=== PATIENT | female | born 1940 | race Caucasian/White ===

== ENCOUNTER → 2021-08-23 14:45 | Outpatient (BNVA) | payer MEDICARE, MEDICAID, SELFPAY | PROVIDERS: Family Provider Internal Medicine; PCP Internal Medicine; Visit Provider Internal Medicine Cardiovascular Disease | DX: I50.22 Chronic systolic (congestive) heart failure (principal) | CPT/HCPCS: 80048; 85025 ==

== ENCOUNTER → 2021-09-01 15:00 | Outpatient (BNVA) | payer MEDICARE, MEDICAID, SELFPAY | PROVIDERS: Family Provider Internal Medicine; PCP Internal Medicine; Visit Provider Nurse Practitioner Family | DX: I50.22 Chronic systolic (congestive) heart failure (principal); I42.9 Cardiomyopathy, unspecified; E78.5 Hyperlipidemia, unspecified; I25.10 Atherosclerotic heart disease of native coronary artery without angina pectoris | CPT/HCPCS: 80048; 83880 ==

== ENCOUNTER 2021-12-09 13:10 | Inpatient (IN) | payer MEDICARE, MEDICAID, SELFPAY ==
[2021-12-09] VITALS (14 sets, daily range): BP systolic 87–140; BP diastolic 46–78; PULSE 69–108; RESP 13–27; TEMP 36.1–36.6; O2SAT 91–95
--- NOTE | 2021-12-09 13:21 | XR_ITS ---
WS: [id number] Chest 2 views, 12/09/2021 Clinical Data: eval for pneumonia Comparison: Portable chest, 02/15/2019. Findings: No nodules, masses or effusions are seen. There are scattered pulmonary opacities in the lo wer lobes which have improved compared to 2 years ago. The heart is enlarged. The pulmonary vasculari ty is not increased. No pneumonia or pneumothorax is seen. The aortic arch and descending thoracic ao rta show tortuosity. There is a hiatal hernia behind the heart. There is a permanent pacemaker with t he generator in the left axilla. There is marked dextroscoliosis and kyphosis. There is osteoporosis with multiple midthoracic compression fractures. Vertebroplasty cement is noted in the T10, T12 and L 1 vertebral bodies. Monitor leads are on the chest wall. XR/XR chest 2V* [id number] Impression: 1. Bilateral bibasilar pulmonary interstitial opacities which probably represen t chronic fibrotic change or atelectasis. 2. Atherosclerosis and cardiomegaly. 3. Kyphosis, dextroscoliosis, osteoporosis and multiple thoracic compression fr actures.
--- NOTE | 2021-12-09 13:21 | ECG_ITS ---
[facility] Test Date: 2021-12-09 Pat Name: Kizzy Salgado Department: Room: Gender: Female Medical Sales Consultant: : 1940 Requested By: Cassie Chen Order Number: [id number] Kayla MD: Peg Silva M.D. Measurements Intervals [place] Rate: 88 P: 28 RI: 148 QRS: 35 QRSD: 142 T: -34 QT: 373 QTc: 454 Interpretive Statements POSSIBLE ATRIAL FLUTTER POSSIBLE LEFT ATRIAL ENLARGEMENT RIGHT BUNDLE BRANCH BLOCK POSSIBLE SEPTAL MYOCARDIAL INFARCTION , OF INDETERMINATE AGE MODERATE T-WAVE ABNORMALITY, CONSIDER LATERAL ISCHEMIA MODERATE T-WAVE ABNORMALITY, CONSIDER INFERIOR ISCHEMIA Compared to ECG 02/15/2019 20:31:39 Myocardial infarct finding now present T-wave abnormality now present Possible ischemia now present Ventricular premature complex(es) no longer present Indeterminate axis no longer present Electronically Signed On 12-10-2021 5:57:57 MANAGER IMMUNOLOGY by Peg Silva M.D. [id number]
--- NOTE | 2021-12-09 13:35 | W.ED.GENADLT ---
HPI - General Adult General: Chief complaint: Arrhythmia/Palpitations Stated complaint: weakness Time Seen by Provider: 12/09/21 13:14 History of Present Illness: Patient is an 81-year-old female with a history of CHF, AICD, hypertension hyperlipidemia presents the emergency room for 2 separate concerns. Per nursing staff, patient is due to have an appointment with her pediatric allergist tomorrow however the detention cannot take the patient to see Deb Jameson tomorrow for evaluation of her ICD device. Nursing staff noticed that patient's heart rate was running in the 40s and became concerned that her ICD device is not properly pacing. On arrival, patient has paced rhythm with heart rate in the 90s-100s. In addition, patient has been complaining of generalized weakness cough and shortness of breath for 1 week. Patient reports subjective fever at home. Patient also reports symptoms of dysuria x1 day. Denies any abdominal pain, nausea/vomiting, chest pain, palpitation, lightheadedness, focal neurological weakness, melena or hematochezia, Onset: 1 week of generalized weakness/cough/dyspnea, 1 day of paroxsysmal bradycardia, 1 day of dysuria Duration:ongoing Location:detention Severity:moderate Associated symptoms: Reports dyspnea; Deny chest pain, nausea, rash, palpitations or vomiting Review of Systems Const: Reports: fever(s); Denies: chills Eyes: Denies: change in vision ENMT: Denies: mouth pain Card: Reports: other (+slow heart rate); Denies: chest pain or palpitations Resp: Reports: dyspnea and non-productive cough GI: Denies: abdominal pain, nausea, vomiting or diarrhea : Reports: dysuria Musc: Denies: extremity pain Skin/Breast: Denies: rash or new lesions Neuro: Denies: weakness in extremities Psych: Reports: other (Normal mood) [place]/Lymph: Denies: easy bruising PFSH ED PFSH: Medical History (Updated 12/12/21 @ 00:00 by ) Arteriosclerosis CAD (coronary artery disease) Cardiomyopathy CHF (congestive heart failure) COPD (chronic obstructive pulmonary disease) History of non-ST elevation myocardial infarction (NSTEMI) HTN (hypertension) Hyperlipidemia Hyperthyroidism Osteoarthritis PVD (peripheral vascular disease) Systolic heart failure Surgical History (Updated 12/09/21 @ 17:37 by Dutch Gaspar MD) Previous back surgery S/P dilatation and curettage S/P hysterectomy S/P ICD (internal cardiac defibrillator) procedure S/P knee surgery S/P tubal ligation Family History Mother Diabetes Hypertension Father Family history of thyroid problem CAD (coronary artery disease) Social History Smoking and tobacco status: never smoked History of recent travel: No Physical Exam Const: COMMON NORMALS: alert HENMT: COMMON NORMALS: atraumatic HEAD & SCALP: atraumatic MOUTH: moist mucous membranes not abnormal Eye: COMMON NORMALS: EOMs intact bilaterally and conjunctivae normal CONJUNCTIVA: Yes conjunctivae normal Neck/C-Spine: COMMON NORMALS: full ROM and supple Resp: COMMON NORMALS: normal respiratory effort and clear to auscultation bilaterally AUSCULTATION: clear to auscultation bilaterally Cardio: COMMON NORMALS: regular rate RATE: regular rate GI: COMMON NORMALS: Soft to palpation and non-tender PALPATION: Yes Soft to palpation Extremity: COMMON NORMALS: full ROM Neuro: SENSORIUM/ORIENTATION: Yes alert MOTOR EXAM: No Abnormal motor strength present and Other motor observations present (no focal motor deficits) Psych: COMMON NORMALS: speech normal SPEECH: Yes normal speech MOOD & AFFECT: Yes euthymic mood Course Vital Signs: Vital signs: Vital Signs Temperature 98 F 12/11/21 12:00 Pulse Rate 79 12/11/21 12:00 Respiratory Rate 14 12/11/21 12:00 Blood Pressure 103/82 12/11/21 12:00 Pulse Oximetry 95 12/11/21 12:00 MDM - General Adult Medical Decision Making 81-year-old female history ICD device, CAD, hypertension, hyperlipidemia who presents the emergency room for evaluation of paroxysmal bradycardia x1 day and cough, shortness of breath, generalized weakness x1 week. Patient's Med[employer]onic ICD device was interrogated. Discussed case with [facility] who tells me that there is no faulty settings in terms of the pacemaker function. While observed the emergency room the patient continued to have heart rate in the 60s to 80s. Discussed case with Deb Jameson who reviewed the meditronic records with Dr. Sauceda and agrees with plan for close followup. EKG showing regular sinus rhythm at HT of 88. Normal axis. No ST elevations/depressions to suggest coronary occlusion. Normal DC, QT intervals. QRS of 142, +Occasional PVC and bigeminy Troponin of 108. Patient status post aspirin p.o. her labs within normal limit. Patient will be admitted to the hospital for management of troponin elevation in the setting of generalized weakness. Disposition: admission Lab Data : 12/11/21 03:54 12/11/21 03:54 Radiology Impressions Chest X-Ray 12/09/21 13:21 Impression: 1. Bilateral bibasilar pulmonary interstitial opacities which probably represent chronic fibrotic change or atelectasis. 2. Atherosclerosis and cardiomegaly. 3. Kyphosis, dextroscoliosis, osteoporosis and multiple thoracic compression fractures. Head CT 12/09/21 18:52 IMPRESSION: No acute intracranial abnormality demonstrated. Laboratory Results WBC 8.3 10^3/uL (4.0-10.0) 12/10/21 04:32 RBC 4.10 10^6/uL (4.1-5.3) 12/10/21 04:32 Hgb 12.0 g/dL (11.5-15.3) 12/10/21 04:32 Hct 37.5 % (37.0-47.0) 12/10/21 04:32 MCV 91.5 fl (81-99) 12/10/21 04:32 MCH 29.3 pg (28.0-34.0) 12/10/21 04:32 MCHC 32.0 g/dL (30.0-36.0) 12/10/21 04:32 RDW 14.9 % (12.1-15.1) 12/10/21 04:32 Plt Count 194 10^3/cmm (130-400) 12/10/21 04:32 MPV 12.7 fL (7.4-10.4) H 12/10/21 04:32 Neut % (Auto) 61.9 % 12/10/21 04:32 Lymph % (Auto) 24.7 % 12/10/21 04:32 [place] % (Auto) 9.4 % 12/10/21 04:32 Eos % (Auto) 3.0 % 12/10/21 04:32 Baso % (Auto) 0.4 % 12/10/21 04:32 Neut # (Auto) 5.11 10^3/uL (1.8-7.7) 12/10/21 04:32 Lymph # (Auto) 2.0 10^3/uL (0.8-4.8) 12/10/21 04:32 [place] # (Auto) 0.8 10^3/uL (0.2-0.9) 12/10/21 04:32 Eos # (Auto) 0.3 10^3/uL (0.0-0.8) 12/10/21 04:32 Baso # (Auto) 0.0 10^3/uL (0.0-0.1) 12/10/21 04:32 Nucleated RBC % (auto) 0 % 12/10/21 04:32 Nucleated RBCs # 0.0 /100WBC 12/10/21 04:32 ESR 82 mm/hr (0-15) H 12/09/21 17:28 PT Cancelled 12/10/21 08:24 INR Cancelled 12/10/21 08:24 Sodium Cancelled 12/10/21 10:20 Potassium Cancelled 12/10/21 10:20 Chloride Cancelled 12/10/21 10:20 Carbon Dioxide Cancelled 12/10/21 10:20 Anion Gap Cancelled 12/10/21 10:20 BUN Cancelled 12/10/21 10:20 Creatinine Cancelled 12/10/21 10:20 GFR Calculation Cancelled 12/10/21 10:20 Glucose Cancelled 12/10/21 10:20 Calculated Osmolality Cancelled 12/10/21 10:20 Calcium Cancelled 12/10/21 10:20 Phosphorus Cancelled 12/10/21 10:20 Magnesium Cancelled 12/10/21 10:20 Total Bilirubin Cancelled 12/10/21 10:20 AST Cancelled 12/10/21 10:20 ALT Cancelled 12/10/21 10:20 Alkaline Phosphatase Cancelled 12/10/21 10:20 Troponin T Baseline 106 ng/L (0-10) H* 12/09/21 15:59 Troponin T 120 Minute 105.4 ng/L (0-10) H 12/09/21 17:45 Delta Troponin T -0.6 ABS# (0-10) L 12/09/21 17:45 Troponin T Hi Sens 6Hr 102.8 ng/L (0-10) H 12/09/21 22:03 Troponin T Hi Sens 6Hr Delta -3.2 ng/L (0-12) L 12/09/21 22:03 C-Reactive Protein 119.8 mg/L (0.0-4.9) H 12/09/21 15:59 NT-Pro-B Natriuret Pep 5630 pg/mL (0-450) H 12/09/21 15:59 Total Protein Cancelled 12/10/21 10:20 Albumin Cancelled 12/10/21 10:20 Globulin Cancelled 12/10/21 10:20 Procalcitonin 0.15 ng/mL (0-0.5) 12/09/21 15:59 TSH 0.12 uIU/mL (0.27-4.20) L 12/09/21 15:59 Free T4 1.20 ng/dL (0.82-1.77) 12/09/21 15:59 Free T3 2.5 PG/ML (2.0-4.4) 12/09/21 15:59 Urine Color Yellow (Yellow) 12/09/21 22:10 Urine Appearance Turbid (CLEAR) 12/09/21 22:10 Urine pH 5 (5-7) 12/09/21 22:10 Ur Specific [place] 1.010 (1.005-1.030) 12/09/21 22:10 Urine Protein Neg (Negative) 12/09/21 22:10 Urine Glucose (UA) Norm (Normal) 12/09/21 22:10 Urine Ketones Negative (Negative) 12/09/21 22:10 Urine Blood Trace (Negative) H 12/09/21 22:10 Urine Nitrate Negative (Negative) 12/09/21 22:10 Urine Bilirubin Neg (Negative) 12/09/21 22:10 Urine Urobilinogen Norm mg/dL (Negative) 12/09/21 22:10 Ur Leukocyte Esterase 2+ (Negative) H 12/09/21 22:10 Urine RBC 0-4 /hpf (0-2) H 12/09/21 22:10 Urine WBC 25-40 /hpf (0-5) H 12/09/21 22:10 Ur Squamous Epith Cells 55-80 /hpf (0-5) H 12/09/21 22:10 Amorphous Sediment Not Reportable 12/09/21 22:10 Urine Bacteria 2+ /hpf (NONE) H 12/09/21 22:10 Imaging Data Other Imaging: [facility]'s impression: [facility] [address] [place] [address] XRay Report Signed Patient: Kizzy Salgado Unit #: [id number] : 1940 Age/Sex: 81 / F ADM Date: 12/09/21 Loc: ER Room/Bed: Attending Dr: Ordering Provider/Ordering MD: Cassie Chen MD Date of Service: 12/09/21 Procedure(s): XR chest 2V* [id number] Accession Number(s): [id number] Report Number: [id number] WS: [id number] Chest 2 views, 12/09/2021 Clinical Data: eval for pneumonia Comparison: Portable chest, 02/15/2019. Findings: No nodules, masses or effusions are seen. There are scattered pulmonary opacities in the lower lobes which have improved compared to 2 years ago. The heart is enlarged. The pulmonary vascularity is not increased. No pneumonia or pneumothorax is seen. The aortic arch and descending thoracic aorta show tortuosity. There is a hiatal hernia behind the heart. There is a permanent pacemaker with the generator in the left axilla. There is marked dextroscoliosis and kyphosis. There is osteoporosis with multiple midthoracic compression fractures. Vertebroplasty cement is noted in the T10, T12 and L1 vertebral bodies. Monitor leads are on the chest wall. XR/XR chest 2V* [id number] Impression: ? 1. Bilateral bibasilar pulmonary interstitial opacities which probably represent chronic fibrotic change or atelectasis. 2. Atherosclerosis and cardiomegaly. 3. Kyphosis, dextroscoliosis, osteoporosis and multiple thoracic compression fractures. ? Dictated By: Laurence Marcum MD Signed By: Laurence Marcum MD Signed Date/Time: 12/09/21 1357 DD/ 1350 Discharge Plan Discharge Patient Disposition: Home Clinical Impression: Cough, Dyspnea, Generalized weakness, Dysuria Condition: Stable Discharge Orders: Discharge Order (Routine); Ordered 12/11/21 Ordered By: Dutch Gaspar Discharge Diet: Advance as tolerated Discharge Activity: Increase activity as tolerated Coding Level of Care Code ED Mother Tester for Carlitosg Fwd Exam Comprehensive
[2021-12-09 14:43] LABS: Basophils % 0.3 %; Eosinophils # 0.1 10^3/uL (0.0-0.8); Eosinophils % 1.1 %; Hematocrit 40.5 % (37.0-47.0); Hemoglobin 13.1 g/dL (11.5-15.3); Lymphocytes # 1.9 10^3/uL (0.8-4.8); Mean Corpuscular HGB Conc 32.3 g/dL (30.0-36.0); Mean Corpuscular Hemoglobin 29.5 pg (28.0-34.0); Mean Corpuscular Volume 91.2 fl (81-99); Mean Platelet Volume 12.4 fL (7.4-10.4); Monocytes # 0.9 10^3/uL (0.2-0.9); Monocytes % 8.3 %; Neutrophils # 8.14 10^3/uL (1.8-7.7); Nucleated Red Blood Cells % 0 %; Platelet Count 208 10^3/cmm (130-400); Red Blood Count 4.44 10^6/uL (4.1-5.3); Red Cell Distribution Width 14.6 % (12.1-15.1); White Blood Count 11.1 10^3/uL (4.0-10.0)
--- NOTE | 2021-12-09 15:21 | ECG_ITS ---
[facility] Test Date: 2021-12-10 Pat Name: Kizzy Salgado Department: Room: 111 Gender: Female Reconciliation Specialist: : 1940 Requested By: Cassie Chen Order Number: [id number] Kayla MD: Uziel Sauceda M.D. Measurements Intervals [place] Rate: 103 P: 215 CO: 261 QRS: 70 QRSD: 134 T: -47 QT: 358 QTc: 469 Interpretive Statements ATRIAL FIBRILLATION WITH RAPID VENTRICULAR RATE RIGHT BUNDLE BRANCH BLOCK [120+ ms QRS DURATION, UPRIGHT V1, 40+ ms S IN I/aVL/V4/V5/V6] POSSIBLE SEPTAL MYOCARDIAL INFARCTION , OF INDETERMINATE AGE MODERATE T-WAVE ABNORMALITY, CONSIDER LATERAL ISCHEMIA MODERATE T-WAVE ABNORMALITY, CONSIDER INFERIOR ISCHEMIA Compared to ECG 12/09/2021 17:52:24 Myocardial infarct finding now present T-wave abnormality now present Possible ischemia now present Ectopic atrial rhythm no longer present Electronically Signed On 12-12-2021 15:57:33 CDT by Uziel Sauceda M.D. [id number]
[2021-12-09 16:43] LABS: Troponin(5th) Baseline 106 ng/L (0-10)
--- NOTE | 2021-12-09 17:29 | PM.HP ---
Providers/Chief Complaint Primary Care Provider: Crescencio Phillips MD Chief Complaint: weakness History of Present Illness Kizzy Salgado is a 81 year old female with a past medical history of atrial fibrillation on Eliquis, CAD, status post ICD, hypertension, systolic CHF, hypothyroidism, peripheral vascular disease, history of non-STEMI, history of cardiomyopathy, who presents to [facility] from [facility] due to concerns for low and fast heart rate. Currently patient is alert to person, to place, not to time, she is a bit slow in her responses, her son at bedside tells me that this is normal for her, she tells me she does not know why she is here except that the [facility] sent her over because first her heart rate was slow, that it was fast and it was irregular so they sent her over here. She denies any chest pain, no palpitations, no lightheadedness, no dizziness, no nausea, no vomiting, no blurry vision, no weakness, no paresthesias, does have a cough, no back pain, does complain of dysuria, she particularly has no significant complaints. Son at bedside tells me that she is normally very sleepy, normally very tired and that is normal for her. Normally she stays in bed, but sometimes ambulates on her own, she normally can feed herself, he tells me that her mentation is good normally. I spoke to [facility], nursing staff tell me that she was sent over to [facility] she fell last night, she hit her head, she was on neurochecks, she has been doing fine. But during her neurochecks, they noticed that her heart rate was slow, and irregular, and when they rechecked it it was fast. So they sent her over to [facility] for further evaluation. In the emergency room patient was found to have A. fib, heart rates in the low 100s, was given metoprolol 5 mg IV push once, troponin was 106, EKG did show T wave inversions in inferior lateral leads. Because of elevated troponins, hospitalist team was called for admission. Her pacemaker was interrogated, no acute findings I was told, no evidence recently Review of Systems Const: Denies: fever(s), fatigue or malaise Eyes: Denies: change in vision or blurry vision Resp: Denies: dyspnea, productive cough or wheezing GI: Denies: abdominal pain, nausea, vomiting, hematemesis, diarrhea, constipation, hematochezia or melena : Denies: flank pain or urinary frequency Musc: Denies: neck pain or back pain Skin/Breast: Denies: rash Neuro: Denies: headache(s) or dizziness Medications/Allergies Home Medications Medication Instructions Recorded Confirmed Last Taken Type acetaminophen 325 mg capsule 325 mg PO QID PRN 12/09/19 11/22/21 Unknown History albuterol sulfate 2.5 mg INHALATION Q4H PRN 12/09/19 11/22/21 Unknown History alprazolam 0.25 mg tablet (Xanax) 0.25 mg PO BID 12/09/19 11/22/21 Unknown History apixaban 2.5 mg tablet (Eliquis) 2.5 mg PO BID 12/09/19 11/22/21 Unknown History aspirin 81 mg tablet,delayed 81 mg PO DAILY 12/09/19 11/22/21 Unknown History release (Adult Low Dose Aspirin) bisacodyl 5 mg tablet 5 mg PO DAILY PRN 12/09/19 11/22/21 Unknown History ferrous sulfate 325 mg (65 mg 325 mg PO BID 12/09/19 11/22/21 Unknown History iron) tablet furosemide 40 mg tablet 60 mg PO BID tab 12/09/19 11/22/21 Unknown History hydrocodone 5 mg-acetaminophen 325 1 tab PO BID PRN 12/09/19 11/22/21 Unknown History mg tablet hydrocortisone 2.5 % topical cream 1 applic TOPICAL BID PRN 12/09/19 11/22/21 Unknown History lactulose 10 gram/15 mL oral 20 gm PO BID 12/09/19 11/22/21 Unknown History solution methimazole 5 mg tablet 5 mg PO DAILY 12/09/19 11/22/21 Unknown History nitroglycerin 0.4 mg sublingual 0.4 mg SUBLINGUAL Q5M PRN 12/09/19 11/22/21 Unknown History tablet (Nitrostat) pantoprazole 20 mg tablet,delayed 20 mg PO DAILY 12/09/19 11/22/21 Unknown History release (Protonix) duloxetine 30 mg capsule,delayed 30 mg PO DAILY 02/17/21 11/22/21 Unknown History release fentanyl 50 mcg/hr transdermal 1 patch TRANSDERMAL Q72H 02/17/21 11/22/21 Unknown History patch loratadine 10 mg tablet (Claritin) 10 mg PO DAILY 02/17/21 11/22/21 Unknown History lorazepam 0.5 mg tablet 0.5 mg PO BID PRN 02/17/21 11/22/21 Unknown History umeclidinium 62.5 mcg-vilanterol 1 inh INHALATION DAILY 02/17/21 11/22/21 Unknown History 25 mcg/actuation powdr for inhalation (Anoro Ellipta) aluminum-mag hydroxide-simethicone 10 ml PO QID PRN 08/23/21 11/22/21 Unknown History 200 mg-200 mg-20 mg/5 mL oral susp (Nae-Lanta) atorvastatin 20 mg tablet 5 mg PO DAILY tab 08/23/21 11/22/21 Unknown History calcitonin (salmon) 200 1 spray INTRANASAL (ALT) DAILY 08/23/21 11/22/21 Unknown History unit/actuation nasal spray carboxymethylcellulose sodium 0.5 1 drp OPHTHALMIC (EYE) BID 08/23/21 11/22/21 Unknown History % eye drops (Refresh Tears) carvedilol 6.25 mg tablet 6.25 mg PO BID #60 tab 08/23/21 11/22/21 Unknown Rx cholecalciferol (vitamin D3) 1,250 50,000 unit PO .Once Weekly cap 08/23/21 11/22/21 Unknown History mcg (50,000 unit) capsule gabapentin 100 mg capsule 300 mg PO TID cap 08/23/21 11/22/21 Unknown History magnesium hydroxide 400 mg/5 mL 15 ml PO BID PRN 08/23/21 11/22/21 Unknown History oral suspension (Milk of Magnesia) metolazone 2.5 mg tablet 2.5 mg PO DAILY #30 tab 08/23/21 11/22/21 Unknown Rx ondansetron HCl 4 mg tablet 4 mg PO Q8H PRN 08/23/21 11/22/21 Unknown History potassium chloride 20 mEq 20 meq PO TID #90 tab 08/23/21 11/22/21 Unknown Rx tablet,extended release sennosides 8.6 mg-docusate sodium 1 tab-cap PO DAILY 08/23/21 11/22/21 Unknown History 50 mg tablet (Senna Plus) tizanidine 2 mg capsule 2 mg PO Q8H PRN 08/23/21 11/22/21 Unknown History Allergies Allergy/AdvReac Type Severity Reaction Status Date / Time No Known Allergies Allergy Verified 11/22/21 13:34 PFSH Acute PFSH: Medical History (Updated 12/09/21 @ 17:37 by Dutch Gaspar MD) Arteriosclerosis CAD (coronary artery disease) Cardiomyopathy CHF (congestive heart failure) COPD (chronic obstructive pulmonary disease) History of non-ST elevation myocardial infarction (NSTEMI) HTN (hypertension) Hyperlipidemia Hyperthyroidism Osteoarthritis PVD (peripheral vascular disease) Systolic heart failure Surgical History (Updated 12/09/21 @ 17:37 by Dutch Gaspar MD) Previous back surgery S/P dilatation and curettage S/P hysterectomy S/P ICD (internal cardiac defibrillator) procedure S/P knee surgery S/P tubal ligation Family History Mother Diabetes Hypertension Father Family history of thyroid problem CAD (coronary artery disease) Social History Smoking and tobacco status: never smoked History of recent travel: No Vitals/I&O/Wt Last Vital Signs Pulse 87 12/09/21 15:31 Resp 27 H 12/09/21 15:31 BP 127/46 12/09/21 15:31 Pulse Ox 91 12/09/21 15:31 Weight last 48 hrs Weight 2.098 kg Physical Exam Const: COMMON NORMALS: no acute distress ORIENTATION/CONSCIOUSNESS: Yes awake, Yes oriented to person and Yes oriented to place; not oriented to time HENMT: COMMON NORMALS: normocephalic HEAD & SCALP: normocephalic Eye: COMMON NORMALS: Equal, round and reactive pupils present Resp: COMMON NORMALS: normal respiratory effort, No retractions, No use of accessory muscles and clear to auscultation bilaterally AUSCULTATION: clear to auscultation bilaterally Cardio: COMMON NORMALS: regular rate, regular rhythm, S1 normal heart sound present and S2 normal heart sound present RATE: regular rate RHYTHM: regular rhythm HEART SOUNDS: S1 normal heart sound present and S2 normal heart sound present GI: COMMON NORMALS: Normal to inspection, nondistended, normoactive bowel sounds present, Soft to palpation, non-tender, No hepatosplenomegaly present, no masses and no bruits PALPATION: Yes Soft to palpation and Yes No hepatosplenomegaly present Extremity: COMMON NORMALS: capillary refill normal, no clubbing, cyanosis or edema, no calf tenderness and no pedal edema Neuro: COMMON NORMALS: CN's II-XII intact bilaterally, moves all extremities, no focal motor deficits and no sensory deficits noted Psych: COMMON NORMALS: mental status grossly normal Data : 12/09/21 14:37 12/09/21 15:59 A&P Assessment and plan (1) Systolic heart failure: Status: Acute Qualifiers: Heart failure chronicity: chronic Qualified Code(s): I50.22 - Chronic systolic (congestive) heart failure (2) CAD (coronary artery disease): Status: Acute Qualifiers: Coronary Disease-Associated Artery/Lesion type: [place] artery [place] vs. transplanted heart: [place] heart Associated angina: without angina Qualified Code(s): I25.10 - Atherosclerotic heart disease of [place] coronary artery without angina pectoris (3) Hyperlipidemia: Status: Acute Qualifiers: Hyperlipidemia type: other hyperlipidemia Qualified Code(s): E78.49 - Other hyperlipidemia (4) HTN (hypertension): Status: Acute Qualifiers: Hypertension type: essential hypertension Qualified Code(s): I10 - Essential (primary) hypertension (5) Atrial fibrillation: Status: Acute (6) NSTEMI (non-ST elevated myocardial infarction): Status: Acute (7) Fall: Status: Acute Plan Atrial fibrillation -No evidence of A. fib with RVR -Heart rates in the 100s -Because there is fluctuations in the heart rate, concern for sinus bradycardia, stop Coreg -Switch to Cardizem 30 every 6 hours -TSH, mag -Telemetry monitoring -Eliquis for DVT prophylaxis -DNR/DNI NSTEMI -EKG does shows T wave inversions inferior lateral leads -Troponin at baseline is 106 -No chest pain complaints, no shortness of breath -Serial EKGs, serial troponins, telemetry monitoring -Continue aspirin, statin, Eliquis -Cardiac echocardiogram -Pacemaker interrogation no events in the last 48 hours, did have 1 AT AF episode on November 21, 1 SVT on November 21 lasting 12 seconds, 34 V. tach episodes most recently November 21, longest 1 minute 13 seconds Hypothyroidism, check TSH, T3, T4, continue methimazole CAD, as above Systolic CHF, continue Lasix, potassium replacement Fall, no pain complaints, PT OT, CT of the head as she is on Eliquis, neurochecks Attestations Medical Necessity Statement*: Patient requires hospitalization, outpatient observation, for atrial fibrillation, elevated troponins Coding Level of Care Code Acute Battery Assembler Dry Cell for g Fwd Diagnoses Systolic heart failure I50.22 Heart failure chronicity: chronic CAD (coronary artery disease) I25.10 Coronary Disease-Associated Artery/Lesion type: [place] artery [place] vs. transplanted heart: [place] heart Associated angina: without angina Hyperlipidemia E78.49 Hyperlipidemia type: other hyperlipidemia HTN (hypertension) I10 Hypertension type: essential hypertension Atrial fibrillation I48.91 NSTEMI (non-ST elevated myocardial infarction) I21.4 Fall W19.XXXA
[2021-12-09 18:01] LABS: Erythrocyte Sedimentation Rate 82 mm/hr (0-15)
[2021-12-09 18:10] LABS: Anion Gap 23.8 (5-19); Blood Urea Nitrogen 57 mg/dL (8-23); Calcium 9.8 mg/dL (8.5-10.5); Carbon Dioxide 19 mmol/L (22-29); Chloride 98 mmol/L (98-107); Glucose 111 mg/dL (65-115); NT Pro B Type Natriuretic Pept 5630 pg/mL (0-450); Osmolality Calculated 299 mOsm/kg (285-295); Potassium 4.8 mmol/L (3.5-5.1); Sodium 136 mmol/L (136-145)
[2021-12-09 18:13] LABS: Procalcitonin 0.15 ng/mL (0-0.5); T3 Free 2.5 PG/ML (2.0-4.4); Thyroid Stimulating Hormone 0.12 uIU/mL (0.27-4.20)
[2021-12-09 18:24] LABS: C Reactive Protein 119.8 mg/L (0.0-4.9)
--- NOTE | 2021-12-09 18:30 | PC.NURSE ---
report to deuce on [facility]
[2021-12-09] MEDS: aspirin 325 mg Tablet PO (18:33)
[2021-12-09 18:45] LABS: Troponin 5 2HR 105.4 ng/L (0-10); Troponin 5 2HR Delta -0.6 ABS# (0-10)
--- NOTE | 2021-12-09 18:51 | PC.NURSE ---
Pt transferred to bed via staff. Tolerated well. Connected to monitor. Report given to oncoming nurse.
--- NOTE | 2021-12-09 18:52 | USCV_ITS ---
Transthoracic Echo Kizzy Salgado Age: 81 Gender: F : 1940 Exam Date: 12/09/2021 19:36 Ordering Phys: Dutch Gaspar MD Technologist: Tho Barclay Exam Location: [facility] – [place] Indication: A-Fib/Bradycardia BP: 87 / 63 HR: 88 Rhythm: Atrial fibrillation Technical Quality: Adequate MEASUREMENTS (Male / Female) Normal Values 2D ECHO LV Diastolic Diameter PLAX 3.5 cm 4.2 - 5.9 / 3.9 - 5.3 cm LV Systolic Diameter PLAX 2.8 cm IVS Diastolic Thickness 1.3 cm 0.6 - 1.0 / 0.6 - 0.9 cm IVS Systolic Thickness 1.6 cm LVPW Diastolic Thickness 1.6 cm 0.6 - 1.0 / 0.6 - 0.9 cm LVPW Systolic Thickness 1.2 cm LVOT Diameter 2.1 cm LV Ejection Fraction 2D Teich 44.6 % LV Ejection Fraction MOD 2C 19.9 % LV Ejection Fraction 2C AL 18.7 % LA Diameter 4.6 cm LA Width 4.6 cm LA Height 7.2 cm RA Width 3.1 cm RA Height 3.3 cm Aorta at Sinotubular Diameter 2.4 cm M-MODE Aortic Annulus Diameter 4.2 cm LA Ao Ratio MM 1.3 DOPPLER AV Peak Velocity 153.5 cm/s LVOT Peak Velocity 71.0 cm/s AV Area Cont Eq vti 2.1 cm squared AV Area Cont Eq pk 1.6 cm squared MV Peak Velocity 91.0 cm/s MV Area PHT 3.6 cm squared Mitral E to A Ratio 1.6 MV E' Velocity 91.0 cm/s TR Peak Velocity 135.9 cm/s TR Peak Gradient 7.4 mmHg TR Mean Velocity 117.9 cm/s TR Mean Gradient 6.9 mmHg TR Velocity Time Integral 31.9 cm Right Atrial Pressure 3.0 mmHg Pulmonary Artery Systolic Pressu 10.4 mmHg PV Peak Velocity 123.0 cm/s RV Acceleration Time 0.1 s RV Ejection Time 0.3 s RV AcT/ET 0.3 FINDINGS Left Ventricle Normal left ventricular size. Grossly LV systolic function is moderate to severely reduced with EF of 30 to 35%. Regional wall motion abnormalities cannot be assessed because of poor visualization. Diastolic function is indeterminate because of atrial fibrillation Right Ventricle Grossly normal. Pacemaker lead is seen Right Atrium The right atrium is normal in size. Pacemaker lead is seen Left Atrium The left atrium is dilated Mitral Valve Structurally normal mitral valve without significant stenosis or prolapse. There is mild mitral regurgitation. Aortic Valve Grossly normal without significant sclerosis or stenosis. There is mild aortic regurgitation. Tricuspid Valve Grossly normal. Mild tricuspid regurgitation. PA systolic pressure is normal Pulmonic Valve Not well visualized Pericardium Normal pericardium without effusion. Aorta Normal ascending aorta dimension. CONCLUSIONS Technically limited study because of poor ultrasonic windows Grossly LV systolic function is moderate to severely reduced with EF of 30 to 35%. Regional wall motion abnormalities cannot be assessed because of poor visualization. Diastolic function is indeterminate because of atrial fibrillation Left atrium is enlarged. Mitral mitral regurgitation. Mild aortic regurgitation. Mild tricuspid regurgitation Compared to prior echocardiogram from 02/11/2019, LV systolic function is decreased now and is 30-35%. It was a limited echocardiogram in 2019 so complete cmparison is not possible Uziel Sauceda MD (Electronically Signed) Final Date: 10 December 2021 11:53 S
--- NOTE | 2021-12-09 18:52 | CTR_ITS ---
PROCEDURE INFORMATION: Exam: CT Head Without Contrast Exam date and time: 12/09/2021 6:52 PM Age: 81 years old Clinical indication: Injury or trauma; Fall; Blunt trauma (contusions or hematomas) TECHNIQUE: Imaging protocol: Computed tomography of the head without contrast. Radiation optimization: All CT scans at this facility use at least one of these dose optimization techniques: automated exposure control; mA and/or kV adjustment per patient size (includes targeted exams where dose is matched to clinical indication); or iterative reconstruction. COMPARISON: No relevant prior studies available. RADIATION DOSE METRICS: Total DLP (mGy-cm): 907.67 FINDINGS: Brain: Age related parenchymal volume loss noted. There is decreased attenuation of the periventricular white matter, consistent with chronic microangiopathic white matter disease. Old lacunar infarct in the [place]. No parenchymal edema identified. No intracranial hemorrhage noted. Cerebral ventricles: No ventriculomegaly. Paranasal sinuses: Visualized sinuses are unremarkable. No fluid levels. Mastoid air cells: Unremarkable as visualized. No mastoid effusion. Bones/joints: Unremarkable. No acute fracture. Soft tissues: Unremarkable. CT/CT head wo con* [id number] IMPRESSION: No acute intracranial abnormality demonstrated.
[2021-12-09] MEDS: potassium chloride ER 20 mEq Tablet PO (20:30)
[2021-12-09] MEDS: dilTIAZem 30 mg Tablet PO (20:30)
[2021-12-09] MEDS: apixaban 5 mg Tablet 2.5 MG PO (21:07)
[2021-12-09 22:36] LABS: Troponin 5 6HR Delta -3.2 ng/L (0-12)
[2021-12-09 22:37] LABS: Troponin 5 6HR 102.8 ng/L (0-10)
[2021-12-09 22:50] LABS: Add Urine Microscopic? YES; Bilirubin Urine Neg (Negative); Blood Urine Trace (Negative); Glucose Urine UA Norm (Normal); Ketones Urine Negative (Negative); Leukocyte Esterase Urine 2+ (Negative); Nitrate Urine Negative (Negative); Protein Urine Neg (Negative); Urine Appearance Turbid (CLEAR); Urine Color Yellow (Yellow); Urobilinogen Urine Norm (Negative); pH Urine 5 (5-7)
[2021-12-09 22:51] LABS: Add Urine Culture? No; Bacteria Urine 2+ /hpf; RBC Urine 0-4 /hpf (0-2); Squamous Epithelial Cell Urine 55-80 /hpf (0-5); WBC Urine 25-40 /hpf (0-5)
--- NOTE | 2021-12-09 22:53 | ECG_ITS ---
[facility] Test Date: 2021-12-09 Pat Name: Kizzy Salgado Department: Room: 111 Gender: Female Special Delivery Carrier: : 1940 Requested By: Cassie Chen Order Number: [id number] Kayla MD: Uziel Sauceda M.D. Measurements Intervals [place] Rate: 66 P: 201 OR: 236 QRS: 28 QRSD: 132 T: -2 QT: 402 QTc: 422 Interpretive Statements ATRIAL FIBRILLATION RIGHT BUNDLE BRANCH BLOCK [120+ ms QRS DURATION, UPRIGHT V1, 40+ ms S IN I/aVL/V4/V5/V6] Compared to ECG 12/09/2021 14:23:20 Sinus rhythm no longer present Myocardial infarct finding no longer present T-wave abnormality no longer present Possible ischemia no longer present Electronically Signed On 12-12-2021 15:58:16 CDT by Uziel Sauceda M.D. [id number]
[2021-12-10] VITALS (11 sets, daily range): BP systolic 116–138; BP diastolic 56–77; PULSE 67–113; RESP 17–29; TEMP 36–36.7; O2SAT 91–96
[2021-12-10] MEDS: dilTIAZem 30 mg Tablet PO ×4 (00:36→19:31)
[2021-12-10 05:10] LABS: Basophils % 0.4 %; Eosinophils # 0.3 10^3/uL (0.0-0.8); Hematocrit 37.5 % (37.0-47.0); Lymphocytes % 24.7 %; Mean Corpuscular Hemoglobin 29.3 pg (28.0-34.0); Mean Corpuscular Volume 91.5 fl (81-99); Mean Platelet Volume 12.7 fL (7.4-10.4); Monocytes # 0.8 10^3/uL (0.2-0.9); Monocytes % 9.4 %; Neutrophils # 5.11 10^3/uL (1.8-7.7); Neutrophils % 61.9 %; Nucleated Red Blood Cells % 0 %; Platelet Count 194 10^3/cmm (130-400); Red Cell Distribution Width 14.9 % (12.1-15.1); White Blood Count 8.3 10^3/uL (4.0-10.0)
--- NOTE | 2021-12-10 06:34 | PC.NURSE ---
Addendum entered by Aisha Burden RN 12/10/21 06:42: pt rested quietly throughout night. VSS. Pt in afib/flutter overnight. Pt pleasantly confused at times. No complaints of pain. Pt up to bedside commode and incontinent of urine. Adequate UOP. Pt NPO since MN. Pt Q2 turned. Hourly rounding done. All needs met. Original Note: pt rested quietly throughout night. VSS. Pt in afib/flutter overnight. Pt pleasantly confused at times. No complaints of pain. Pt up to bedside commode and incontinent of urine. Adequate UOP. Pt Q2 turned. Hourly rounding done. All needs met.
[2021-12-10] MEDS: methIMAzole 5 MG Tablet PO (08:55)
[2021-12-10] MEDS: duloxetine 30 mg Capsule PO (08:55)
[2021-12-10] MEDS: aspirin 81 mg EC Tablet PO (08:55)
[2021-12-10] MEDS: pantoprazole DR 40 mg Tablet PO (08:55)
[2021-12-10] MEDS: potassium chloride ER 20 mEq Tablet PO (08:55)
[2021-12-10] MEDS: gabapentin 300 mg Capsule PO ×3 (08:55→20:05)
[2021-12-10] MEDS: apixaban 5 mg Tablet 2.5 MG PO ×2 (08:55→20:05)
[2021-12-10] MEDS: cefTRIAXone 1,000 MG in sodium chloride 0.9% (plus) 50 ML 100 MG IV (09:14)
--- NOTE | 2021-12-10 13:33 | P.PN_ITS ---
Subjective Subjective: Patient was seen this morning, she is alert to person, to place, not to time, she has no complaints, no chest pain, no palpitations, no lightheadedness, dizziness, no nausea, no vomiting Vitals/I&O/Wt Last Vital Signs Temp 97.2 F L 12/10/21 11:29 Pulse 91 12/10/21 11:29 Resp 21 H 12/10/21 11:29 BP 124/66 12/10/21 11:29 Pulse Ox 93 12/10/21 11:29 12/09/21 12/10/21 12/10/21 22:59 06:59 14:59 Intake Total 300 / 300 160 / 160 Output Total 100 / 100 380 / 380 Balance 200 / 200 -220 / -220 Weight last 48 hrs Weight 63.276 kg Weight 66.678 kg Weight 2.098 kg Physical Exam Const: COMMON NORMALS: no acute distress ORIENTATION/CONSCIOUSNESS: Yes awake, Yes oriented to person and Yes oriented to place; not oriented to time Resp: COMMON NORMALS: normal respiratory effort, No retractions, No use of accessory muscles and clear to auscultation bilaterally AUSCULTATION: clear to auscultation bilaterally Cardio: COMMON NORMALS: regular rate, regular rhythm, S1 normal heart sound present and S2 normal heart sound present RATE: regular rate RHYTHM: regular rhythm HEART SOUNDS: S1 normal heart sound present and S2 normal heart sound present GI: COMMON NORMALS: Normal to inspection, nondistended, normoactive bowel sounds present, Soft to palpation, non-tender and No hepatosplenomegaly present PALPATION: Yes Soft to palpation and Yes No hepatosplenomegaly present Extremity: COMMON NORMALS: no pedal edema Neuro: SENSORIUM/ORIENTATION: Yes oriented to person, Yes oriented to place and No oriented to time Data : 12/10/21 04:32 12/09/21 15:59 A&P Assessment and plan (1) Systolic heart failure: Status: Acute Qualifiers: Heart failure chronicity: chronic Qualified Code(s): I50.22 - Chronic systolic (congestive) heart failure (2) CAD (coronary artery disease): Status: Acute Qualifiers: Coronary Disease-Associated Artery/Lesion type: [place] artery [place] vs. transplanted heart: [place] heart Associated angina: without angina Qualified Code(s): I25.10 - Atherosclerotic heart disease of [place] coronary artery without angina pectoris (3) Hyperlipidemia: Status: Acute Qualifiers: Hyperlipidemia type: other hyperlipidemia Qualified Code(s): E78.49 - Other hyperlipidemia (4) HTN (hypertension): Status: Acute Qualifiers: Hypertension type: essential hypertension Qualified Code(s): I10 - Essential (primary) hypertension (5) Atrial fibrillation: Status: Acute (6) NSTEMI (non-ST elevated myocardial infarction): Status: Acute (7) Fall: Status: Acute Plan Atrial fibrillation -No evidence of A. fib with RVR -Heart rates in the 100s -However review of patient's event monitor shows A. fib with RVR episodes -Does have frequent PVCs -Start Cardizem 30 every 6 hours -Hold Coreg -TSH slightly low at 0.12, normal free T4, normal free T3 -Telemetry monitoring -Eliquis for DVT prophylaxis -DNR/DNI Acute kidney injury, creatinine 2.1 -Hold Lasix therapy -Monitor for fluid overload -Hold off on fluid therapy due to concerns for CHF NSTEMI -EKG does shows T wave inversions inferior lateral leads -Troponin at baseline is 106 -No chest pain complaints, no shortness of breath -Serial EKGs, serial troponins, telemetry monitoring -Continue aspirin, statin, Eliquis -Cardiac echocardiogram -Pacemaker interrogation no events in the last 48 hours, did have 1 AT AF episode on November 21, 1 SVT on November 21 lasting 12 seconds, 34 V. tach episodes most recently November 21, longest 1 minute 13 seconds Hyperthyroidism, continue methimazole CAD, as above Systolic CHF, monitor for fluid overload, hold Lasix Fall, no pain complaints, PT OT, CT of the head as she is on Eliquis, no acute stroke, no acute bleed, continue neurochecks Attestations Medical Necessity Statement*: Patient requires hospitalization for atrial fibrillation, NSTEMI, Coding Level of Care Code Acute Fine Artist for Chg Fwd Diagnoses Systolic heart failure I50.22 Heart failure chronicity: chronic CAD (coronary artery disease) I25.10 Coronary Disease-Associated Artery/Lesion type: [place] artery [place] vs. transplanted heart: [place] heart Associated angina: without angina Hyperlipidemia E78.49 Hyperlipidemia type: other hyperlipidemia HTN (hypertension) I10 Hypertension type: essential hypertension Atrial fibrillation I48.91 NSTEMI (non-ST elevated myocardial infarction) I21.4 Fall W19.XXXA
[2021-12-10] MEDS: sodium chloride 0.9% 1,000 ML 30 ML IV (15:50)
--- NOTE | 2021-12-10 17:37 | PC.NURSE ---
Only ate dessert.
--- NOTE | 2021-12-10 20:29 | PC.NURSE ---
Shift Note Frequent safety and comfort rounds continue. Orders and/or nursing care completed as indicated. Patient monitored for response to intervention and treatment(s). Education provided includes IVF and cardizem med. Patient and/or public health representative verbalizes understanding. Will continue to monitor.
[2021-12-11] VITALS (12 sets, daily range): BP systolic 102–121; BP diastolic 50–82; PULSE 62–79; RESP 14–27; TEMP 36.6; O2SAT 92–95
[2021-12-11] MEDS: dilTIAZem 30 mg Tablet PO ×2 (00:53→06:07)
[2021-12-11 04:51] LABS: Basophils % 0.4 %; Eosinophils # 0.3 10^3/uL (0.0-0.8); Eosinophils % 3.3 %; Hematocrit 38.8 % (37.0-47.0); Hemoglobin 12.6 g/dL (11.5-15.3); Lymphocytes # 1.8 10^3/uL (0.8-4.8); Lymphocytes % 22.1 %; Mean Corpuscular HGB Conc 32.5 g/dL (30.0-36.0); Mean Corpuscular Hemoglobin 29.5 pg (28.0-34.0); Mean Corpuscular Volume 90.9 fl (81-99); Mean Platelet Volume 12.6 fL (7.4-10.4); Monocytes # 0.8 10^3/uL (0.2-0.9); Monocytes % 9.3 %; Neutrophils # 5.34 10^3/uL (1.8-7.7); Neutrophils % 64.5 %; Nucleated Red Blood Cells % 0 %; Platelet Count 197 10^3/cmm (130-400); Red Blood Count 4.27 10^6/uL (4.1-5.3); Red Cell Distribution Width 14.5 % (12.1-15.1); White Blood Count 8.3 10^3/uL (4.0-10.0)
[2021-12-11 05:11] LABS: Alanine Aminotransferase 6 U/L (0-33); Albumin Level 3.3 g/dL (3.5-5.2); Alkaline Phosphatase 75 IU/L (35-105); Anion Gap 17.1 (5-19); Aspartate Amino Transferase 13 U/L (0-32); Blood Urea Nitrogen 50 mg/dL (8-23); Calcium 8.7 mg/dL (8.5-10.5); Carbon Dioxide 23 mmol/L (22-29); Chloride 97 mmol/L (98-107); Glucose 111 mg/dL (65-115); Magnesium 1.6 mg/dL (1.7-2.3); Osmolality Calculated 290 mOsm/kg (285-295); Phosphorus 3.7 mg/dL (2.5-4.5); Potassium 4.1 mmol/L (3.5-5.1); Sodium 133 mmol/L (136-145); Total Bilirubin 0.5 mg/dL (0.15-1.2); Total Protein 7.3 g/dL (6.6-8.7)
[2021-12-11 05:25] LABS: INR 1.51 (0.8-1.2)
[2021-12-11] MEDS: aspirin 81 mg EC Tablet PO (08:20)
[2021-12-11] MEDS: methIMAzole 5 MG Tablet PO (08:20)
[2021-12-11] MEDS: duloxetine 30 mg Capsule PO (08:21)
[2021-12-11] MEDS: FUROsemide 40 mg Tablet 60 MG PO (08:21)
[2021-12-11] MEDS: pantoprazole DR 40 mg Tablet PO (08:21)
[2021-12-11] MEDS: cefTRIAXone 1,000 MG in sodium chloride 0.9% (plus) 50 ML 100 MG IV (08:21)
[2021-12-11] MEDS: apixaban 5 mg Tablet 2.5 MG PO (08:22)
[2021-12-11] MEDS: gabapentin 300 mg Capsule PO (08:22)
[2021-12-11 09:12] LABS: SARS Covid-2 Antigen Negative (Negative)
--- NOTE | 2021-12-11 09:57 | PC.SLP ---
Patient is scheduled to be discharged so will not be evaluated by speech therapy.
--- NOTE | 2021-12-11 11:03 | P.DS_ITS ---
Discharge Providers Date of Admission: 12/10/21 14:01 Date of Discharge: December 11, 2021 Attending Provider at Admission: Dutch Gaspar MD Attending Provider at Discharge: Dutch Gaspar MD Primary Care Provider: Crescencio Phillips MD Diagnoses at Discharge Discharge Diagnosis (1) Systolic heart failure: Status: Acute Qualifiers: Heart failure chronicity: chronic Qualified Code(s): I50.22 - Chronic systolic (congestive) heart failure (2) CAD (coronary artery disease): Status: Acute Qualifiers: Coronary Disease-Associated Artery/Lesion type: [place] artery [place] vs. transplanted heart: [place] heart Associated angina: without angina Qualified Code(s): I25.10 - Atherosclerotic heart disease of [place] coronary artery without angina pectoris (3) Hyperlipidemia: Status: Acute Qualifiers: Hyperlipidemia type: other hyperlipidemia Qualified Code(s): E78.49 - Other hyperlipidemia (4) HTN (hypertension): Status: Acute Qualifiers: Hypertension type: essential hypertension Qualified Code(s): I10 - Essential (primary) hypertension (5) Atrial fibrillation: Status: Acute (6) NSTEMI (non-ST elevated myocardial infarction): Status: Acute (7) Fall: Status: Acute Reason for Visit Reason for Visit: weakness Hospital Course Hospital Course Kizzy Salgado is a 81 year old female with a past medical history of atrial fibrillation on Eliquis, CAD, status post ICD, hypertension, systolic CHF, hypothyroidism, peripheral vascular disease, history of non-STEMI, history of cardiomyopathy, who presents to [facility] from [facility] due to concerns for low and fast heart rate.? Patient presents [facility] for atrial fibrillation, does have Holter evidence of A. fib with RVR episodes, frequent PVCs, due to concerns for slow heart rate Coreg was stopped, was discharged on Cardizem 120 twice daily. Patient did have NSTEMI during his hospitalization, 6-hour troponin 102.8, no significant delta troponin, no chest pain complaints, no shortness of breath complaints, T wave did shorten versus inferior leads, cardiac echocardiogram showed Technically limited study because of? poor ultrasonic windows ?Grossly LV systolic function is moderate to severely reduced ?with EF of 30 to 35%.? Regional wall motion abnormalities cannot ?be assessed because of poor visualization. ?Diastolic function is indeterminate because of atrial ?fibrillation ?Left atrium is enlarged. ?Mitral mitral regurgitation. ?Mild aortic regurgitation. Mild tricuspid regurgitation ?Compared to prior echocardiogram from 02/11/2019, LV systolic ?function is decreased now and is 30-35%.? It was a limited ?echocardiogram in 2019 so complete cmparison is not possible Continue home aspirin, statin, Eliquis, follow-up with cardiology in 1 week -Pacemaker interrogation no events in the last 48 hours, did have 1 AT AF episode on November 21, 1 SVT on November 21 lasting 12 seconds, 34 V. tach episodes most recently November 21, longest 1 minute 13 seconds. Cardizem dose increased as above, follow-up with cardiology as outpatient, magnesium has been low, started on Mag-Tab Physical Exam Const: COMMON NORMALS: no acute distress and patient oriented x3 Resp: COMMON NORMALS: normal respiratory effort, No retractions, No use of accessory muscles and clear to auscultation bilaterally AUSCULTATION: clear to auscultation bilaterally Cardio: COMMON NORMALS: regular rate, regular rhythm, S1 normal heart sound present and S2 normal heart sound present RATE: regular rate RHYTHM: regular rhythm HEART SOUNDS: S1 normal heart sound present and S2 normal heart sound present GI: COMMON NORMALS: Normal to inspection, nondistended, normoactive bowel sounds present, Soft to palpation, non-tender and No hepatosplenomegaly present PALPATION: Yes Soft to palpation and Yes No hepatosplenomegaly present Extremity: COMMON NORMALS: no pedal edema Neuro: COMMON NORMALS: patient oriented x3 Psych: COMMON NORMALS: mental status grossly normal Discharge Data Studies Completed and Pending Completed Studies During Hospitalization Category Date Time Status CT head wo con* [id number] Urgent Cat Scan 12/09/21 18:52 Completed XR chest 2V* [id number] Stat Exams 12/09/21 13:21 Completed CV. echo complete* [id number] Routine Ultrasound 12/09/21 18:52 Completed Pending at discharge Category Date Time Status Complete Blood Count w/Auto AM LABS Lab 12/12/21 04:00 Ordered Comprehensive Metabolic Panel AM LABS Lab 12/12/21 04:00 Ordered Magnesium AM LABS Lab 12/12/21 04:00 Ordered Phosphorus AM LABS Lab 12/12/21 04:00 Ordered Prothrombin Time INR AM LABS Lab 12/12/21 04:00 Ordered Radiology Impressions Chest X-Ray 12/09/21 13:21 Impression: 1. Bilateral bibasilar pulmonary interstitial opacities which probably represent chronic fibrotic change or atelectasis. 2. Atherosclerosis and cardiomegaly. 3. Kyphosis, dextroscoliosis, osteoporosis and multiple thoracic compression fractures. Head CT 12/09/21 18:52 IMPRESSION: No acute intracranial abnormality demonstrated. Laboratory Results WBC 8.3 10^3/uL (4.0-10.0) 12/11/21 03:54 RBC 4.27 10^6/uL (4.1-5.3) 12/11/21 03:54 Hgb 12.6 g/dL (11.5-15.3) 12/11/21 03:54 Hct 38.8 % (37.0-47.0) 12/11/21 03:54 MCV 90.9 fl (81-99) 12/11/21 03:54 MCH 29.5 pg (28.0-34.0) 12/11/21 03:54 MCHC 32.5 g/dL (30.0-36.0) 12/11/21 03:54 RDW 14.5 % (12.1-15.1) 12/11/21 03:54 Plt Count 197 10^3/cmm (130-400) 12/11/21 03:54 MPV 12.6 fL (7.4-10.4) H 12/11/21 03:54 Neut % (Auto) 64.5 % 12/11/21 03:54 Lymph % (Auto) 22.1 % 12/11/21 03:54 [place] % (Auto) 9.3 % 12/11/21 03:54 Eos % (Auto) 3.3 % 12/11/21 03:54 Baso % (Auto) 0.4 % 12/11/21 03:54 Neut # (Auto) 5.34 10^3/uL (1.8-7.7) 12/11/21 03:54 Lymph # (Auto) 1.8 10^3/uL (0.8-4.8) 12/11/21 03:54 [place] # (Auto) 0.8 10^3/uL (0.2-0.9) 12/11/21 03:54 Eos # (Auto) 0.3 10^3/uL (0.0-0.8) 12/11/21 03:54 Baso # (Auto) 0.0 10^3/uL (0.0-0.1) 12/11/21 03:54 Nucleated RBC % (auto) 0 % 12/11/21 03:54 Nucleated RBCs # 0.0 /100WBC 12/11/21 03:54 ESR 82 mm/hr (0-15) H 12/09/21 17:28 PT 18.60 SECONDS (12.1-14.9) H 12/11/21 03:54 INR 1.51 (0.8-1.2) H 12/11/21 03:54 Sodium 133 mmol/L (136-145) L 12/11/21 03:54 Potassium 4.1 mmol/L (3.5-5.1) 12/11/21 03:54 Chloride 97 mmol/L (98-107) L 12/11/21 03:54 Carbon Dioxide 23 mmol/L (22-29) 12/11/21 03:54 Anion Gap 17.1 (5-19) 12/11/21 03:54 BUN 50 mg/dL (8-23) H 12/11/21 03:54 Creatinine 1.5 mg/dL (0.5-0.9) H 12/11/21 03:54 GFR Calculation Not Reportable 12/11/21 03:54 Glucose 111 mg/dL (65-115) 12/11/21 03:54 Calculated Osmolality 290 mOsm/kg (285-295) 12/11/21 03:54 Calcium 8.7 mg/dL (8.5-10.5) 12/11/21 03:54 Phosphorus 3.7 mg/dL (2.5-4.5) 12/11/21 03:54 Magnesium 1.6 mg/dL (1.7-2.3) L 12/11/21 03:54 Total Bilirubin 0.5 mg/dL (0.15-1.2) 12/11/21 03:54 AST 13 U/L (0-32) 12/11/21 03:54 ALT 6 U/L (0-33) 12/11/21 03:54 Alkaline Phosphatase 75 IU/L (35-105) 12/11/21 03:54 Troponin T Baseline 106 ng/L (0-10) H* 12/09/21 15:59 Troponin T 120 Minute 105.4 ng/L (0-10) H 12/09/21 17:45 Delta Troponin T -0.6 ABS# (0-10) L 12/09/21 17:45 Troponin T Hi Sens 6Hr 102.8 ng/L (0-10) H 12/09/21 22:03 Troponin T Hi Sens 6Hr Delta -3.2 ng/L (0-12) L 12/09/21 22:03 C-Reactive Protein 119.8 mg/L (0.0-4.9) H 12/09/21 15:59 NT-Pro-B Natriuret Pep 5630 pg/mL (0-450) H 12/09/21 15:59 Total Protein 7.3 g/dL (6.6-8.7) 12/11/21 03:54 Albumin 3.3 g/dL (3.5-5.2) L 12/11/21 03:54 Globulin 4.0 g/dL (1.3-4.6) 12/11/21 03:54 Procalcitonin 0.15 ng/mL (0-0.5) 12/09/21 15:59 TSH 0.12 uIU/mL (0.27-4.20) L 12/09/21 15:59 Free T4 1.20 ng/dL (0.82-1.77) 12/09/21 15:59 Free T3 2.5 PG/ML (2.0-4.4) 12/09/21 15:59 Urine Color Yellow (Yellow) 12/09/21 22:10 Urine Appearance Turbid (CLEAR) 12/09/21 22:10 Urine pH 5 (5-7) 12/09/21 22:10 Ur Specific [place] 1.010 (1.005-1.030) 12/09/21 22:10 Urine Protein Neg (Negative) 12/09/21 22:10 Urine Glucose (UA) Norm (Normal) 12/09/21 22:10 Urine Ketones Negative (Negative) 12/09/21 22:10 Urine Blood Trace (Negative) H 12/09/21 22:10 Urine Nitrate Negative (Negative) 12/09/21 22:10 Urine Bilirubin Neg (Negative) 12/09/21 22:10 Urine Urobilinogen Norm mg/dL (Negative) 12/09/21 22:10 Ur Leukocyte Esterase 2+ (Negative) H 12/09/21 22:10 Urine RBC 0-4 /hpf (0-2) H 12/09/21 22:10 Urine WBC 25-40 /hpf (0-5) H 12/09/21 22:10 Ur Squamous Epith Cells 55-80 /hpf (0-5) H 12/09/21 22:10 Amorphous Sediment Not Reportable 12/09/21 22:10 Urine Bacteria 2+ /hpf (NONE) H 12/09/21 22:10 SARS-CoV-2 Ag (Rapid) Negative (Negative) 12/11/21 08:40 Vitals Last Vital Signs Temp 98.1 F 12/10/21 20:00 Pulse 69 12/11/21 08:00 Resp 20 H 12/11/21 08:00 BP 120/71 12/11/21 08:00 Pulse Ox 95 12/11/21 08:00 Discharge Plan Discharge Patient Disposition: Home Condition: Stable Prescriptions: New Cardizem 120 mg tablet 120 mg PO BID 30 Days Qty: 60 0RF Continued fentanyl 50 mcg/hr patch 72 hour 1 patch transdermal Q72H 0RF Anoro Ellipta 62.5-25 mcg/actuation blister with device 1 inh inhalation DAILY 0RF lorazepam 0.5 mg tablet 0.5 mg PO BID 0RF loratadine [Claritin] 10 mg tablet 10 mg PO DAILY 0RF Eliquis 2.5 mg tablet 2.5 mg PO BID 0RF pantoprazole [Protonix] 20 mg tablet,delayed release (DR/EC) 20 mg PO DAILY 0RF nitroglycerin [Nitrostat] 0.4 mg tablet, sublingual 0.4 mg SUBLINGUAL Q5M PRN (Reason: Chest Pain) 0RF aspirin [Adult Low Dose Aspirin] 81 mg tablet,delayed release (DR/EC) 81 mg PO DAILY 0RF albuterol sulfate 2.5 mg /3 mL (0.083 %) solution for nebulization 2.5 mg INHALATION Q4H PRN (Reason: Shortness Of Breath) 0RF acetaminophen 325 mg capsule 325 mg PO QID PRN (Reason: Pain) 0RF lactulose 10 gram/15 mL solution 10 gm PO BID 0RF ferrous sulfate 325 mg (65 mg iron) tablet 325 mg PO BID 0RF bisacodyl 5 mg tablet 5 mg PO DAILY PRN (Reason: Constipation) 0RF methimazole 5 mg tablet 7.5 mg PO DAILY 0RF atorvastatin 20 mg tablet 5 mg PO DAILY 0RF gabapentin 100 mg capsule 300 mg PO TID 0RF sennosides-docusate sodium [Senna Plus] 8.6-50 mg tablet 1 tab-cap PO DAILY 0RF calcitonin (salmon) 200 unit/actuation spray,non-aerosol 1 spray intranasal (ALT) DAILY 0RF ondansetron HCl 4 mg tablet 4 mg PO Q8H PRN (Reason: Nausea) 0RF tizanidine 2 mg capsule 2 mg PO Q8H PRN (Reason: Muscle Spasm) 0RF clobetasol 0.05 % Ointment 1 applic TOPICAL DAILY 0RF Biofreeze (menthol) 4 % Gel 1 applic TOPICAL DAILY 0RF duloxetine 60 mg Capsule, Delayed Rel Sprinkle 60 mg PO DAILY 0RF hydrocodone-acetaminophen 7.5-325 mg Tablet 1 tab PO Q8H PRN (Reason: Pain) 0RF Refresh Tears 0.5 % Drops 2 drp OPHTHALMIC (EYE) BID PRN (Reason: Eye Irritation) 0RF Hemorrhoidal H Suppository 1 supp [place] BID 0RF Nyamyc 100,000 unit/gram powder 100,000 unit TOPICAL DAILY 0RF Changed furosemide 40 mg tablet 40 mg PO BID Qty: 0 0RF potassium chloride 20 mEq tablet extended release 20 meq PO BID Qty: 90 3RF Discontinued metolazone 2.5 mg tablet 2.5 mg PO DAILY Qty: 30 3RF carvedilol 6.25 mg tablet 6.25 mg PO BID Qty: 60 6RF Discharge Orders: Discharge Order (Routine); Ordered 12/11/21 Ordered By: Dutch Gaspar Referrals: Crescencio Phillips MD [Primary Care Provider] - Uziel Sauceda M.D [Physician] - 1 week Discharge Diet: Advance as tolerated Discharge Activity: Increase activity as tolerated Patient Instructions: Acute Cough (ED), Opioid Safety Activity Restrictions/Additional Instructions: Come back to the emergency room if you have chest pain, have any fever or chills, worsening shortness of breath, worsening exertional lightheadedness, or any new or concerning complaints. -Cardizem dose has been increased to 120 twice daily -Monitor for chest pain, palpitations -Lasix dose decreased to 40 twice daily -Follow-up with cardiology in 1 week Discharge Attestations Time Spent in Discharge Care*: less than 30 min Quality Metrics Clinical Quality Measures [ No reported AMI, CVA or VTE this stay] Coding Level of Care Code Acute Chg FW DC note Diagnoses Systolic heart failure I50.22 Heart failure chronicity: chronic CAD (coronary artery disease) I25.10 Coronary Disease-Associated Artery/Lesion type: [place] artery [place] vs. transplanted heart: [place] heart Associated angina: without angina Hyperlipidemia E78.49 Hyperlipidemia type: other hyperlipidemia HTN (hypertension) I10 Hypertension type: essential hypertension Atrial fibrillation I48.91 NSTEMI (non-ST elevated myocardial infarction) I21.4 Fall W19.XXXA
--- NOTE | 2021-12-11 12:55 | PC.NURSE ---
report phoned to monse at [facility].pt's son here to transport pt back to sn[facility].discharged by w/c to vehicle
== END 2021-12-11 12:56 | disposition skilled nursing facility (03) | DRG 280 ==
LOC: ER 14:33 → CSU 18:17
PROVIDERS: Admitting Provider Family Medicine; Emergency Provider Emergency Medicine; PCP Internal Medicine; Visit Provider Family Medicine
DX: I11.0 Hypertensive heart disease with heart failure (principal); I50.23 Acute on chronic systolic (congestive) heart failure; I21.4 Non-ST elevation (NSTEMI) myocardial infarction; I42.9 Cardiomyopathy, unspecified; I25.10 Atherosclerotic heart disease of native coronary artery without angina pectoris; E78.49 Other hyperlipidemia; I48.91 Unspecified atrial fibrillation; E03.9 Hypothyroidism, unspecified; I73.9 Peripheral vascular disease, unspecified; Z79.82 Long term (current) use of aspirin; Z79.01 Long term (current) use of anticoagulants; Z79.891 Long term (current) use of opiate analgesic; J44.9 Chronic obstructive pulmonary disease, unspecified; Z95.810 Presence of automatic (implantable) cardiac defibrillator
CPT/HCPCS: 36415; 70450; 71046; 80048; 80053; 81001; 83735; 83880; 84100; 84145; 84439; 84443; 84481; 84484; 85025; 85610; 85651; 86140; 87426; 93005; 93306; 97116; 97161; 97165; 99285; G0378; J0696; J7030

== ENCOUNTER 2021-12-20 12:24 | Inpatient (IN) | payer MEDICARE, MEDICAID, SELFPAY ==
[2021-12-20] VITALS (9 sets, daily range): BP systolic 126–152; BP diastolic 71–89; PULSE 59–77; RESP 15–24; TEMP 36.7–37.8; O2SAT 97–98
--- NOTE | 2021-12-20 12:44 | ECG_ITS ---
[facility] Test Date: 2021-12-20 Pat Name: Kizzy Salgado Department: Room: Gender: Female Color Consultant: : 1940 Requested By: Jw Dockery Order Number: [id number] Kayla MD: Kanu Alicea M.D. Measurements Intervals [place] Rate: 72 P: 85 MI: 229 QRS: 98 QRSD: 134 T: -52 QT: 409 QTc: 448 Interpretive Statements Regular supraventricular rhythm Heavy baseline artifact RIGHT BUNDLE BRANCH BLOCK Further interpretation is not possible Electronically Signed On 12-20-2021 20:20:46 CDT by Kanu Alicea M.D. [id number]
--- NOTE | 2021-12-20 12:45 | XRR_ITS ---
PROCEDURE INFORMATION: Exam: XR Chest Exam date and time: 12/20/2021 11:50 AM Age: 81 years old Clinical indication: Cough and dyspnea; Additional info: Dyspnea/cough TECHNIQUE: Imaging protocol: XR of the chest. Views: 1 view. COMPARISON: CR XR chest 2V* [id number] 12/09/2021 1:32 PM FINDINGS: Lungs: Chronic emphysematous changes of the lungs. Linear atelectasis or scarring at the left lung base. No focal consolidation. Pleural spaces: No pleural effusion. No pneumothorax. Heart/Mediastinum: Cardiomegaly. AICD/pacer device noted in the left chest wall. Bones/joints: Sequela of kyphoplasty material within the mid and lower thoracic spine. Generalized osseous demineralization. No acute findings. XR/XR chest 1V portable [id number] IMPRESSION: No acute findings.
--- NOTE | 2021-12-20 13:17 | PC.NURSE ---
PT PLACED ON CONTINUOUS SPO2, NIBP, AND CM.
[2021-12-20 13:23] LABS: Basophils % 0.1 %; Hematocrit 39.7 % (37.0-47.0); Hemoglobin 12.7 g/dL (11.5-15.3); Lymphocytes % 9.4 %; Mean Corpuscular Hemoglobin 29.7 pg (28.0-34.0); Mean Platelet Volume 11.3 fL (7.4-10.4); Monocytes # 0.9 10^3/uL (0.2-0.9); Neutrophils # 8.69 10^3/uL (1.8-7.7); Neutrophils % 82.2 %; Nucleated Red Blood Cells % 0.2 %; Platelet Count 276 10^3/cmm (130-400); Red Blood Count 4.27 10^6/uL (4.1-5.3); Red Cell Distribution Width 15.9 % (12.1-15.1); White Blood Count 10.6 10^3/uL (4.0-10.0)
[2021-12-20 13:24] LABS: ABG PCO2 42.8 mmHg (35-45); ABG PH Result 7.44 (7.35-7.45); Arterial Blood Gas Hematocrit 39.8 % (37-47); Base Excess ABG 4.3 mmol/L (-2.0-2.0); Blood Gas Allen Test Pos; Blood Gas Sample Site Radial, right; Blood Gas Sample Type Arterial; Carboxyhemoglobin 0.8 %THgb (0.4-20.1); HGB O2 Sat 97.6 % (95-100); Ionized Calcium Level - ABG 1.2 mmol/L (1.1-1.4); Methemoglobin 0.8 % (0.4-1.5); Oxygen Device NC; Oxygen Saturation ABG 99.3; Potassium Level - ABG 4.8 mmol/L (3.5-5.0)
--- NOTE | 2021-12-20 13:35 | PC.NURSE ---
ATTEMPTED 2 STRAIGHT CATH ATTEMPTS WITHOUT SUCCESS INFORMED DR. SALEH
[2021-12-20 13:37] LABS: Lactic Sepsis W/Reflex 1.3 mmol/L (0.5-2.2)
[2021-12-20 13:42] LABS: Alanine Aminotransferase 10 U/L (0-33); Alkaline Phosphatase 82 IU/L (35-105); Aspartate Amino Transferase 17 U/L (0-32); Blood Urea Nitrogen 49 mg/dL (8-23); Calcium 10.5 mg/dL (8.5-10.5); Carbon Dioxide 26 mmol/L (22-29); Chloride 104 mmol/L (98-107); Creatine Phosphokinase 255 U/L (26-192); Globulin 4.4 g/dL (1.3-4.6); Glucose 153 mg/dL (65-115); Lipase 43 U/L (13-60); Magnesium 2.2 mg/dL (1.7-2.3); Osmolality Calculated 318 mOsm/kg (285-295); Sodium 146 mmol/L (136-145); Total Bilirubin 0.4 mg/dL (0.15-1.2); Total Protein 8.4 g/dL (6.6-8.7)
[2021-12-20 14:21] LABS: Influenza A by IFA Negative (Negative); Influenza B by IFA Negative (Negative)
--- NOTE | 2021-12-20 14:33 | ED_ITS ---
HPI - Altered Mental Status General: Chief Complaint: Altered Mental Status Stated Complaint: FEVER/ TREMORS Time Seen by Provider: 12/20/21 12:44 Source: patient, family and EMS Mode of arrival: EMS Limitations: altered mental status History of Present Illness: 81-year-old female presents to the ER via EMS from a local detention. She was having little difficulty yesterday but was still basically at her normal baseline usually she will converse and respond. Last night she tried to get up and go to the bathroom and she slipped and fell to the floor. Family reported that they were told by staff that at that point she was fine was awake and aware alert there was no evidence of any head. This morning she woke she was poorly responsive would not open her eyes would not converse or respond any kind of verbal stimuli. She is running a low-grade fever at this time. Family reports that while she is mildly forgetful she does not have significant dementia. This is much different than her usual baseline. Later patient responded to painful noxious stimuli but otherwise remained poorly responsive complaint: altered mental status Onset (ago): hour(s) Severity: severe Consistency of symptoms: Waxing and Waning Review of Systems General: Reports: ROS unobtainable due to mental status (Minimal review of systems done with family and from EMS report) [facility] ED PFSH: Medical History Arteriosclerosis CAD (coronary artery disease) Cardiomyopathy CHF (congestive heart failure) COPD (chronic obstructive pulmonary disease) History of non-ST elevation myocardial infarction (NSTEMI) HTN (hypertension) Hyperlipidemia Hyperthyroidism Osteoarthritis PVD (peripheral vascular disease) Systolic heart failure Surgical History Previous back surgery S/P dilatation and curettage S/P hysterectomy S/P ICD (internal cardiac defibrillator) procedure S/P knee surgery S/P tubal ligation Family History Mother Diabetes Hypertension Father Family history of thyroid problem CAD (coronary artery disease) Social History Smoking and tobacco status: never smoked History of recent travel: No Physical Exam Const: EXAM LIMITATIONS: altered mental status GENERAL APPEARANCE: lethargic, ill appearing and frail appearing ORIENTATION/CONSCIOUSNESS: Yes lethargic HENMT: COMMON NORMALS: normocephalic, atraumatic and Normal external nose present HEAD & SCALP: normocephalic and atraumatic NOSE: Normal external nose present and Normal nares present Eye: GENERAL EYE: appearance normal, both eyes and all related structures and normal light reflex DIRECT OPHTHALMOSCOPY: Yes normal light reflex Neck/C-Spine: COMMON NORMALS: full ROM, no lymphadenopathy, supple, no men ingeal signs and no JVD Lymph: LYMPHATIC: no lymphadenopathy noted Resp: COMMON NORMALS: normal respiratory effort, No retractions, No use of accessory muscles and clear to auscultation bilaterally AUSCULTATION: clear to auscultation bilaterally Cardio: COMMON NORMALS: no JVD and regular rate RATE: regular rate RHYTHM: abnormal rhythm irregularly irregular GI: COMMON NORMALS: Soft to palpation and No hepatosplenomegaly present PALPATION: Yes Soft to palpation, No Tenderness to palpation present (GI), No Guarding due to palpation present (GI) and Yes No hepatosplenomegaly present : COMMON NORMALS: Yes no CVA tenderness BLADDER/KIDNEY EXAM: Yes no CVA tenderness Back/Pelvis: COMMON NORMALS: no CVA tenderness Extremity: COMMON NORMALS: no pedal edema Neuro: SENSORIUM/ORIENTATION: Yes lethargic MENINGEAL SIGNS: Yes no meningeal signs Course Vital Signs: Vital signs: Vital Signs Temperature 97.6 F 12/21/21 08:00 Pulse Rate 60 12/21/21 08:16 Respiratory Rate 18 12/21/21 08:16 Blood Pressure 120/78 12/21/21 08:00 Pulse Oximetry 94 12/21/21 08:16 MDM - Altered Mental Status Medical Decision Making Patient is running a fever. We are unable to get a Fuentes in her after multiple attempts our nursing staff tried OB staff was called and I made an attempt to finally contacted Dr. Gongora for consultation for placement of Fuentes. Cultures are done patient prophylactically placed on ceftriaxone discussed with hospitalist orders written Medical Records I reviewed the patient's medical records. Lab Data I reviewed the patient's lab results. : 12/21/21 05:06 12/21/21 05:06 Radiology Impressions Chest X-Ray 12/20/21 12:45 IMPRESSION: No acute findings. Head CT 12/20/21 14:36 IMPRESSION: 1. No evidence of intracranial hemorrhage or mass effect. 2. Moderate small vessel changes. Moderate parenchymal volume loss. 3. No acute intracranial findings. Laboratory Results WBC 10.6 10^3/uL (4.0-10.0) H 12/20/21 13:10 RBC 4.27 10^6/uL (4.1-5.3) 12/20/21 13:10 Hgb 12.7 g/dL (11.5-15.3) 12/20/21 13:10 Hct 39.7 % (37.0-47.0) 12/20/21 13:10 MCV 93.0 fl (81-99) 12/20/21 13:10 MCH 29.7 pg (28.0-34.0) 12/20/21 13:10 MCHC 32.0 g/dL (30.0-36.0) 12/20/21 13:10 RDW 15.9 % (12.1-15.1) H 12/20/21 13:10 Plt Count 276 10^3/cmm (130-400) 12/20/21 13:10 MPV 11.3 fL (7.4-10.4) H 12/20/21 13:10 Neut % (Auto) 82.2 % 12/20/21 13:10 Lymph % (Auto) 9.4 % 12/20/21 13:10 [place] % (Auto) 8.0 % 12/20/21 13:10 Eos % (Auto) 0.0 % 12/20/21 13:10 Baso % (Auto) 0.1 % 12/20/21 13:10 Neut # (Auto) 8.69 10^3/uL (1.8-7.7) H 12/20/21 13:10 Lymph # (Auto) 1.0 10^3/uL (0.8-4.8) 12/20/21 13:10 [place] # (Auto) 0.9 10^3/uL (0.2-0.9) 12/20/21 13:10 Eos # (Auto) 0.0 10^3/uL (0.0-0.8) 12/20/21 13:10 Baso # (Auto) 0.0 10^3/uL (0.0-0.1) 12/20/21 13:10 Nucleated RBC % (auto) 0.2 % 12/20/21 13:10 Nucleated RBCs # 0.0 /100WBC 12/20/21 13:10 Specimen Type Arterial 12/20/21 13:20 Sample Site Radial, right 12/20/21 13:20 ABG pH 7.44 (7.35-7.45) 12/20/21 13:20 ABG pCO2 42.8 mmHg (35-45) 12/20/21 13:20 ABG pO2 124.0 mmHg (80.0-100.0) H 12/20/21 13:20 ABG HCO3 29.0 mmol/L (22-26) H 12/20/21 13:20 ABG O2 Saturation 99.3 12/20/21 13:20 ABG Base Excess 4.3 mmol/L (-2.0-2.0) H 12/20/21 13:20 [place] Test Pos 12/20/21 13:20 Hematocrit 39.8 % (37-47) 12/20/21 13:20 Hgb O2 Saturation 97.6 % (95-100) 12/20/21 13:20 Carboxyhemoglobin 0.8 %THgb (0.4-20.1) 12/20/21 13:20 Methemoglobin 0.8 % (0.4-1.5) 12/20/21 13:20 Total Hemoglobin 13.0 g/dL (12-16) 12/20/21 13:20 Sodium 150.0 mmol/L (131-143) H 12/20/21 13:20 Potassium 4.8 mmol/L (3.5-5.0) 12/20/21 13:20 Glucose 149.0 mg/dL (70-115) H 12/20/21 13:20 Ionized Calcium 1.2 mmol/L (1.1-1.4) 12/20/21 13:20 O2 Delivery Device Nc 12/20/21 13:20 O2 Liters/Min 3.0 % 12/20/21 13:20 Building Cleaning Supervisor ID Hinja 12/20/21 13:20 Sodium 146 mmol/L (136-145) H 12/20/21 13:10 Potassium 5.0 mmol/L (3.5-5.1) 12/20/21 13:10 Chloride 104 mmol/L (98-107) 12/20/21 13:10 Carbon Dioxide 26 mmol/L (22-29) 12/20/21 13:10 Anion Gap 21.0 (5-19) H 12/20/21 13:10 BUN 49 mg/dL (8-23) H 12/20/21 13:10 Creatinine 2.2 mg/dL (0.5-0.9) H 12/20/21 13:10 GFR Calculation Not Reportable 12/20/21 13:10 Glucose 153 mg/dL (65-115) H 12/20/21 13:10 Calculated Osmolality 318 mOsm/kg (285-295) H 12/20/21 13:10 Lactic Acid 1.3 mmol/L (0.5-2.2) 12/20/21 13:10 Calcium 10.5 mg/dL (8.5-10.5) 12/20/21 13:10 Magnesium 2.2 mg/dL (1.7-2.3) 12/20/21 13:10 Total Bilirubin 0.4 mg/dL (0.15-1.2) 12/20/21 13:10 AST 17 U/L (0-32) 12/20/21 13:10 ALT 10 U/L (0-33) 12/20/21 13:10 Alkaline Phosphatase 82 IU/L (35-105) 12/20/21 13:10 Creatine Kinase 255 U/L (26-192) H 12/20/21 13:10 Troponin T Baseline 82 ng/L (0-10) H 12/20/21 13:10 Troponin T 120 Minute 71.61 ng/L (0-10) H 12/20/21 15:02 Delta Troponin T -10.39 ABS# (0-10) L 12/20/21 15:02 Total Protein 8.4 g/dL (6.6-8.7) 12/20/21 13:10 Albumin 4.0 g/dL (3.5-5.2) 12/20/21 13:10 Globulin 4.4 g/dL (1.3-4.6) 12/20/21 13:10 Lipase 43 U/L (13-60) 12/20/21 13:10 Coronavirus 229E (PCR) Not detected (NOT DETECT) 12/20/21 15:07 Influenza Type A Ag Negative (Negative) 12/20/21 13:21 Influenza Type B Ag Negative (Negative) 12/20/21 13:21 SARS-CoV-2 (PCR) Not detected (NOT DETECT) 12/20/21 15:07 Discharge Plan Discharge Patient Disposition: Admitted As Inpatient Admit Provider: Chris Rolle Clinical Impression: Fever, Atrial fibrillation, Encephalopathy acute Condition: Stable Coding Level of Care Code ED Scrap Handler for Ajay Kasper
--- NOTE | 2021-12-20 14:36 | CT_ITS ---
WS: [id number] CT HEAD TECHNIQUE: Noncontrast CT of the head obtained from the skullbase to the vertex. CLINICAL INFORMATION: AMS COMPARISON: December 09, 2021 DLP: 833.[address] scans at [facility] use at least one of these dose optimization techniques: automated e xposure control; mA and/or kV adjustment per patient size (includes targeted exams where dose is matc hed to clinical indication); or iterative reconstruction. FINDINGS: No evidence of intracranial hemorrhage or mass effect. Ventricular system and basal cisterns are sanchez nt. Moderate small vessel changes with moderate parenchymal volume loss. Low-attenuation small vessel changes worse about the periventricular temporal horns. This is unchanged from previous. No extra-ax ial fluid collections. Dense intracranial vascular calcification. No evidence of mass or mass effect. Paranasal sinuses and mastoid air cells are well aerated. .Normal visualized soft tissues. CT/CT head wo con* [id number] IMPRESSION: 1. No evidence of intracranial hemorrhage or mass effect. 2. Moderate small vessel changes. Moderate parenchymal volume loss. 3. No acute intracranial findings.
[2021-12-20 15:09] LABS: Troponin(5th) Baseline 82 ng/L (0-10)
[2021-12-20 15:27] LABS: Troponin 5 2HR 71.61 ng/L (0-10)
--- NOTE | 2021-12-20 16:34 | ECG_ITS ---
[facility] Test Date: 2021-12-20 Pat Name: Kizzy Salgado Department: Room: 266 Gender: Female Fiscal Clerk: : 1940 Requested By: Jw Dockery Order Number: [id number] Kayla MD: Kanu Alicea M.D. Measurements Intervals [place] Rate: 61 P: 45 AR: 255 QRS: 154 QRSD: 130 T: -39 QT: 429 QTc: 434 Interpretive Statements Possible atrial fibrillation with demand V paced rhythm Further interpretation is not possible Heavy baseline artifact Electronically Signed On 12-20-2021 20:42:58 CDT by Kanu Alicea M.D. [email or web address] st. john [id number]
[2021-12-20 17:31] LABS: Adenovirus Not Detected (NOT DETECT); Chlamydia Pneumoniae Not Detected (NOT DETECT); Coronavirus 229E,HKU1,NL63,OC4 Not Detected (NOT DETECT); Human Metapneumovirus Not Detected (NOT DETECT); Human Rhinovirus/Enterovirus Not Detected (NOT DETECT); Influenza A Not Detected (NOT DETECT); Influenza A H1 Not Detected (NOT DETECT); Influenza A H1-2009 Not Detected (NOT DETECT); Influenza A H3 Not Detected (NOT DETECT); Influenza B Not Detected (NOT DETECT); Mycoplasma Pneumoniae Not Detected (NOT DETECT); Parainfluenza Virus Type 1 Not Detected (NOT DETECT); Parainfluenza Virus Type 2 Not Detected (NOT DETECT); Parainfluenza Virus Type 3 Not Detected (NOT DETECT); Parainfluenza Virus Type 4 Not Detected (NOT DETECT); Respiratory Syncytial Virus A Not Detected (NOT DETECT); Respiratory Syncytial Virus B Not Detected (NOT DETECT); SARS-COV-2 Not Detected (NOT DETECT)
--- NOTE | 2021-12-20 17:53 | PM.HP ---
Providers/Chief Complaint Admitting Physician: Chris Rolle MD Primary Care Provider: Crescencio Phillips MD Chief Complaint: FEVER/ TREMORS History of Present Illness Kizzy Salgado is a 81 year old female with a past medical history of atrial fibrillation on Eliquis, CAD, status post ICD, hypertension, systolic CHF, hyperthyroidism , peripheral vascular disease, resident of [facility] was brought in from the longterm Due to worsening of mentation. According to the daughter who provided the history, she had talked to her mother 3 days back Over the phone, at that time she was at her baseline mentation, she was inquiring about when she will visit her.?Last night she tried to get up and go to the bathroom and she slipped and fell to the floor.?Family reported that they were told by staff that at that point she was fine was awake and aware alert there was no evidence of any head.?This morning she woke she was poorly responsive would not open her eyes would not converse or respond.Daughter was informed about her change in mental status and then they decided to send her to the hospital. When I examined the patient she was listed responsive. Upon arrival in the ER she was worked up for above mentioned complaint: Pertinent imaging studies: CT head without contrast: No acute intracranial pathology. X-ray chest: Chronic emphysematous changes of the lungs. Linear atelectasis or scarring at the left lung base. No focal consolidation. Pleural spaces: No pleural effusion. No pneumothorax.Cardiomegaly. AICD/pacer device noted in the left chest wall. Pertinent labs: WBC 10.6, H&H : 12/39 , PLT : 276 , serum sodium 146, K : 5 , BUN /SCR : 49/2.2 , CK : 255 , Baseline troponin: 82 , 2 H T : 71 , 2H D : - 10 ABG: pH 7.44, pco2: 42 , po2: 124 Review of Systems General: Reports: ROS unobtainable due to mental status Medications/Allergies Home Medications Medication Instructions Recorded Confirmed Last Taken Type acetaminophen 325 mg capsule 325 mg PO QID PRN 12/09/19 12/20/21 Unknown History albuterol sulfate 2.5 mg INHALATION Q4H PRN 12/09/19 12/20/21 Unknown History apixaban 2.5 mg tablet (Eliquis) 2.5 mg PO BID 12/09/19 12/20/21 12/19/21 History aspirin 81 mg tablet,delayed 81 mg PO DAILY 12/09/19 12/20/21 12/19/21 History release (Adult Low Dose Aspirin) bisacodyl 5 mg tablet 5 mg PO DAILY PRN 12/09/19 12/20/21 Unknown History ferrous sulfate 325 mg (65 mg 325 mg PO BID 12/09/19 12/20/21 12/19/21 History iron) tablet lactulose 10 gram/15 mL oral 10 gm PO BID 12/09/19 12/20/21 12/19/21 History solution methimazole 5 mg tablet 7.5 mg PO DAILY 12/09/19 12/20/21 12/19/21 History nitroglycerin 0.4 mg sublingual 0.4 mg SUBLINGUAL Q5M PRN 12/09/19 12/20/21 Unknown History tablet (Nitrostat) pantoprazole 20 mg tablet,delayed 20 mg PO DAILY 12/09/19 12/20/21 12/19/21 History release (Protonix) fentanyl 50 mcg/hr transdermal 1 patch TRANSDERMAL Q72H 02/17/21 12/20/21 Unknown History patch loratadine 10 mg tablet (Claritin) 10 mg PO DAILY 02/17/21 12/20/21 12/19/21 History lorazepam 0.5 mg tablet 0.5 mg PO BID 02/17/21 12/20/21 12/19/21 History umeclidinium 62.5 mcg-vilanterol 1 inh INHALATION DAILY 02/17/21 12/20/21 Unknown History 25 mcg/actuation powdr for inhalation (Anoro Ellipta) atorvastatin 20 mg tablet 5 mg PO DAILY tab 08/23/21 12/20/21 12/19/21 History calcitonin (salmon) 200 1 spray INTRANASAL (ALT) DAILY 08/23/21 12/20/21 12/19/21 History unit/actuation nasal spray gabapentin 100 mg capsule 300 mg PO TID cap 08/23/21 12/20/21 12/19/21 History ondansetron HCl 4 mg tablet 4 mg PO Q8H PRN 08/23/21 12/20/21 Unknown History sennosides 8.6 mg-docusate sodium 1 tab-cap PO DAILY 08/23/21 12/20/21 Unknown History 50 mg tablet (Senna Plus) tizanidine 2 mg capsule 2 mg PO Q8H PRN 08/23/21 12/20/21 Unknown History carboxymethylcellulose sodium 0.5 2 drp OPHTHALMIC (EYE) BID PRN 12/09/21 12/20/21 Unknown History % eye drops (Refresh Tears) clobetasol 0.05 % topical ointment 1 applic TOPICAL DAILY 12/09/21 12/20/21 12/17/21 History cocoa butter-shark liver oil 1 supp [place] BID 12/09/21 12/20/21 Unknown History rectal suppository (Hemorrhoidal H) duloxetine 60 mg capsule,delayed 60 mg PO DAILY 12/09/21 12/20/21 12/19/21 History release sprinkle hydrocodone 7.5 mg-acetaminophen 1 tab PO Q8H PRN 12/09/21 12/20/21 Unknown History 325 mg tablet menthol 4 % topical gel (Biofreeze 1 applic TOPICAL DAILY 12/09/21 12/20/21 Unknown History (menthol)) nystatin 100,000 unit/gram topical 100,000 unit TOPICAL DAILY 12/09/21 12/20/21 12/19/21 History powder (Nyamyc) diltiazem HCl 120 mg tablet 120 mg PO BID 30 Days #60 tab 12/11/21 12/20/21 12/19/21 Rx (Cardizem) furosemide 40 mg tablet 40 mg PO BID #0 tab 12/11/21 12/20/21 12/19/21 Rx potassium chloride 20 mEq 20 meq PO BID #90 tab 12/11/21 12/20/21 12/19/21 Rx tablet,extended release Allergies Allergy/AdvReac Type Severity Reaction Status Date / Time No Known Allergies Allergy Verified 12/20/21 13:49 PFSH Acute PFSH: Medical History (Updated 12/20/21 @ 18:43 by Chris Rolle MD) Arteriosclerosis CAD (coronary artery disease) Cardiomyopathy CHF (congestive heart failure) COPD (chronic obstructive pulmonary disease) History of non-ST elevation myocardial infarction (NSTEMI) HTN (hypertension) Hyperlipidemia Hyperthyroidism Osteoarthritis PVD (peripheral vascular disease) Systolic heart failure Surgical History (Updated 12/09/21 @ 17:37 by Dutch Gaspar MD) Previous back surgery S/P dilatation and curettage S/P hysterectomy S/P ICD (internal cardiac defibrillator) procedure S/P knee surgery S/P tubal ligation Family History Mother Diabetes Hypertension Father Family history of thyroid problem CAD (coronary artery disease) Social History Smoking and tobacco status: never smoked History of recent travel: No Vitals/I&O/Wt Last Vital Signs Temp 100.1 F H 12/20/21 12:37 Pulse 77 12/20/21 12:37 Resp 20 H 12/20/21 12:37 BP 143/79 12/20/21 12:37 Pulse Ox 98 12/20/21 12:37 Weight last 48 hrs Weight 68.039 kg Physical Exam HENMT: COMMON NORMALS: normocephalic and atraumatic HEAD & SCALP: normocephalic and atraumatic Chest: COMMONS NORMALS: normal inspection of the chest CHEST: Yes Symmetrical chest wall rise Resp: COMMON NORMALS: clear to auscultation bilaterally EFFORT & INSPECTION: Yes symmetric chest movement AUSCULTATION: clear to auscultation bilaterally Cardio: COMMON NORMALS: regular rate, regular rhythm, S1 normal heart sound present, S2 normal heart sound present, No gallops present (Cardio), No murmurs present (Cardio), No rub (Cardio) and Peripheral pulses 2+ throughout RATE: regular rate RHYTHM: regular rhythm HEART SOUNDS: S1 normal heart sound present and S2 normal heart sound present PERIPHERAL PULSES: Peripheral pulses 2+ throughout GI: COMMON NORMALS: Normal to inspection, nondistended, normoactive bowel sounds present, Soft to palpation, non-tender, No hepatosplenomegaly present and no masses AUSCULTATION: Yes normoactive bowel sounds PALPATION: Yes Soft to palpation and Yes No hepatosplenomegaly present RECTAL EXAM: deferred Extremity: COMMON NORMALS: no clubbing, cyanosis or edema and no pedal edema Data : 12/20/21 13:10 12/20/21 13:10 Micro: Microbiology 12/20/21 16:47 Blood Culture - Preliminary Blood SPECIMEN COLLECTED 12/20/21 13:10 Blood Culture - Preliminary Blood SPECIMEN COLLECTED A&P Assessment and plan (1) Atrial fibrillation: Status: Acute (2) Systolic heart failure: Status: Acute Qualifiers: Heart failure chronicity: chronic Qualified Code(s): I50.22 - Chronic systolic (congestive) heart failure (3) CAD (coronary artery disease): Status: Acute Qualifiers: Coronary Disease-Associated Artery/Lesion type: [place] artery [place] vs. transplanted heart: [place] heart Associated angina: without angina Qualified Code(s): I25.10 - Atherosclerotic heart disease of [place] coronary artery without angina pectoris (4) Hyperlipidemia: Status: Acute Qualifiers: Hyperlipidemia type: other hyperlipidemia Qualified Code(s): E78.49 - Other hyperlipidemia (5) HTN (hypertension): Status: Acute Qualifiers: Hypertension type: essential hypertension Qualified Code(s): I10 - Essential (primary) hypertension (6) PVD (peripheral vascular disease): Status: Acute (7) Hyperthyroidism: Status: Acute (8) Hypernatremia: Status: Acute (9) Acute kidney injury superimposed on CKD: Status: Acute Plan 81 year old female with a past medical history of atrial fibrillation on Eliquis, CAD, status post ICD, hypertension, systolic CHF, hyperthyroidism , peripheral vascular disease, was brought in with chief complaint of altered mental status. Assessment: Acute metabolic encephalopathy: Likely secondary to hypernatremia, KLAUDIA on CKD, dehydration, Follow blood cultures Urinalysis, urine culture Neurochecks every 4 hours Fall precaution Telemetry monitoring Continue IV hydration with D5 half NS at 100 cc an hour #History of hyperthyroidism: Most recent TSH: 0.12 Follow-up TSH Follow free T4 Free T3 Total T3-T4 Continue methimazole for now #Low-grade fever: Admission T max : 100.1 Currently empirically on ceftriaxone, for possible UTI #History of heart failure with reduced ejection fraction Currently compensated Monitor intake output charting k>4, mg >2 Hold Lasix #History of atrial fibrillation Continue Cardizem Continue Eliquis Continue telemetry monitoring #KLAUDIA on CKD stage III: Likely prerenal KLAUDIA Baseline serum creatinine is likely around 1.3-1.5 Admission serum creatinine 2.2 Follow BMP Monitor intake output charting Fuentes catheter in place Avoid nephrotoxic's #Elevated troponin likely type II [place] Monitor EKG Continue aspirin statin Eliquis Sublingual nitro #CODE STATUS:AND #DVT prophylaxis Attestations Medical Necessity Statement*: Patient needs to be hospital for management of acute encephalopathy. Anticipated length of stay greater than 2 midnights Time Spent in Patient Care: Greater than 35 minutes (>than 50% of time spent in counselling and/or direct pt care on unit). Coding Level of Care Code Acute Machinist Brake for Chg Fwd Diagnoses Atrial fibrillation I48.91 Systolic heart failure I50.22 Heart failure chronicity: chronic CAD (coronary artery disease) I25.10 Coronary Disease-Associated Artery/Lesion type: [place] artery [place] vs. transplanted heart: [place] heart Associated angina: without angina Hyperlipidemia E78.49 Hyperlipidemia type: other hyperlipidemia HTN (hypertension) I10 Hypertension type: essential hypertension PVD (peripheral vascular disease) I73.9 Hyperthyroidism E05.90 Hypernatremia E87.0 Acute kidney injury superimposed on CKD N17.9; N18.9
--- NOTE | 2021-12-20 18:04 | PC.NURSE ---
ATTEMPTED REPORT NURSE UNAVAILABLE.
[2021-12-20] MEDS: sodium chloride 0.9% 1,000 ML 999 ML IV (18:05)
[2021-12-20] MEDS: cefTRIAXone 1,000 MG in sodium chloride 0.9% (plus) 50 ML 100 MG IV (18:06)
--- NOTE | 2021-12-20 18:27 | PC.NURSE ---
REPORT CALLED TO CHIO MARTINEZ
[2021-12-20 19:01] LABS: Add Urine Microscopic? YES; Bilirubin Urine Neg (Negative); Blood Urine 2+ (Negative); Glucose Urine UA Norm (Normal); Ketones Urine Negative (Negative); Leukocyte Esterase Urine Negative (Negative); Nitrate Urine Negative (Negative); Protein Urine Neg (Negative); Urine Appearance Clear (CLEAR); Urine Color Yellow (Yellow); Urobilinogen Urine Norm (Negative); pH Urine 5 (5-7)
[2021-12-20 19:02] LABS: Add Urine Culture? Yes; Bacteria Urine 1+ /hpf; RBC Urine 15-25 /hpf (0-2); WBC Urine RARE /hpf (0-5)
--- NOTE | 2021-12-20 19:27 | PM.CONSULT ---
Providers/Reason For Consult Consulting Physician/Specialty*: Urology/[place] Reason for Consult*: Inability to pass catheter Requesting Physician: Dr. Gurrola Attending Physician: Chris Rolle MD Primary Care Provider: Crescencio Phillips MD History of Present Illness History of Present Illness Kizzy Salgado is a 81 year old female who is being admitted through the emergency department for acute mental status changes. Concern was that she was septic and a catheter was attempted to be placed by multiple nursing staff and ER staff unsuccessfully. I was consulted for evaluation. I spoke with the patient's daughter who was able to provide information. Patient was unable to really provide any significant data. She was lethargic and somewhat responsive but not a participant in the interview process. Physical exam revealed severe genital atrophy. Urethral meatus was not visualized. Could palpate the urethra though on the anterior vaginal wall approximately 2-1/2 to 3 cm inside the introitus at the 12 o'clock position. PROCEDURE: Difficult Fuentes catheter placement Patient was repositioned with 2 pillows underneath her buttocks to elevate her perineum. She was prepped and draped in usual sterile fashion. Downward pressure on the posterior vagina was conducted with the back of my right index finger. A 14 [place] coud? tip Fuentes catheter was advanced on the volar aspect of my index finger in the negotiated into the meatus under palpation. Urine was obtained, balloon was inflated and the catheter placed to dependent drainage. Patient was turned back over to the nursing staff and ER physician for continued care. Review of Systems General: Reports: ROS unobtainable due to mental status Medications/Allergies Home Medications Medication Instructions Recorded Confirmed Last Taken Type acetaminophen 325 mg capsule 325 mg PO QID PRN 12/09/19 12/20/21 Unknown History albuterol sulfate 2.5 mg INHALATION Q4H PRN 12/09/19 12/20/21 Unknown History apixaban 2.5 mg tablet (Eliquis) 2.5 mg PO BID 12/09/19 12/20/21 12/19/21 History aspirin 81 mg tablet,delayed 81 mg PO DAILY 12/09/19 12/20/21 12/19/21 History release (Adult Low Dose Aspirin) bisacodyl 5 mg tablet 5 mg PO DAILY PRN 12/09/19 12/20/21 Unknown History ferrous sulfate 325 mg (65 mg 325 mg PO BID 12/09/19 12/20/21 12/19/21 History iron) tablet lactulose 10 gram/15 mL oral 10 gm PO BID 12/09/19 12/20/21 12/19/21 History solution methimazole 5 mg tablet 7.5 mg PO DAILY 12/09/19 12/20/21 12/19/21 History nitroglycerin 0.4 mg sublingual 0.4 mg SUBLINGUAL Q5M PRN 12/09/19 12/20/21 Unknown History tablet (Nitrostat) pantoprazole 20 mg tablet,delayed 20 mg PO DAILY 12/09/19 12/20/21 12/19/21 History release (Protonix) fentanyl 50 mcg/hr transdermal 1 patch TRANSDERMAL Q72H 02/17/21 12/20/21 Unknown History patch loratadine 10 mg tablet (Claritin) 10 mg PO DAILY 02/17/21 12/20/21 12/19/21 History lorazepam 0.5 mg tablet 0.5 mg PO BID 02/17/21 12/20/21 12/19/21 History umeclidinium 62.5 mcg-vilanterol 1 inh INHALATION DAILY 02/17/21 12/20/21 Unknown History 25 mcg/actuation powdr for inhalation (Anoro Ellipta) atorvastatin 20 mg tablet 5 mg PO DAILY tab 08/23/21 12/20/21 12/19/21 History calcitonin (salmon) 200 1 spray INTRANASAL (ALT) DAILY 08/23/21 12/20/21 12/19/21 History unit/actuation nasal spray gabapentin 100 mg capsule 300 mg PO TID cap 08/23/21 12/20/21 12/19/21 History ondansetron HCl 4 mg tablet 4 mg PO Q8H PRN 08/23/21 12/20/21 Unknown History sennosides 8.6 mg-docusate sodium 1 tab-cap PO DAILY 08/23/21 12/20/21 Unknown History 50 mg tablet (Senna Plus) tizanidine 2 mg capsule 2 mg PO Q8H PRN 08/23/21 12/20/21 Unknown History carboxymethylcellulose sodium 0.5 2 drp OPHTHALMIC (EYE) BID PRN 12/09/21 12/20/21 Unknown History % eye drops (Refresh Tears) clobetasol 0.05 % topical ointment 1 applic TOPICAL DAILY 12/09/21 12/20/21 12/17/21 History cocoa butter-shark liver oil 1 supp [place] BID 12/09/21 12/20/21 Unknown History rectal suppository (Hemorrhoidal H) duloxetine 60 mg capsule,delayed 60 mg PO DAILY 12/09/21 12/20/21 12/19/21 History release sprinkle hydrocodone 7.5 mg-acetaminophen 1 tab PO Q8H PRN 12/09/21 12/20/21 Unknown History 325 mg tablet menthol 4 % topical gel (Biofreeze 1 applic TOPICAL DAILY 12/09/21 12/20/21 Unknown History (menthol)) nystatin 100,000 unit/gram topical 100,000 unit TOPICAL DAILY 12/09/21 12/20/21 12/19/21 History powder (Nyamyc) diltiazem HCl 120 mg tablet 120 mg PO BID 30 Days #60 tab 12/11/21 12/20/21 12/19/21 Rx (Cardizem) furosemide 40 mg tablet 40 mg PO BID #0 tab 12/11/21 12/20/21 12/19/21 Rx potassium chloride 20 mEq 20 meq PO BID #90 tab 12/11/21 12/20/21 12/19/21 Rx tablet,extended release Allergies Allergy/AdvReac Type Severity Reaction Status Date / Time No Known Allergies Allergy Verified 12/20/21 13:49 Current Medications Generic Name Dose Route Start Last Admin Trade Name Freq PRN Reason Stop Dose Admin Ceftriaxone Sodium 1,000 mg/ 50 mls @ 100 mls/hr 12/20/21 18:00 12/20/21 18:34 Sodium Chloride IV Infused Q24H VALERIA Infusion Protocol PFSH Acute PFSH: Medical History Arteriosclerosis CAD (coronary artery disease) Cardiomyopathy CHF (congestive heart failure) COPD (chronic obstructive pulmonary disease) History of non-ST elevation myocardial infarction (NSTEMI) HTN (hypertension) Hyperlipidemia Hyperthyroidism Osteoarthritis PVD (peripheral vascular disease) Systolic heart failure Surgical History Previous back surgery S/P dilatation and curettage S/P hysterectomy S/P ICD (internal cardiac defibrillator) procedure S/P knee surgery S/P tubal ligation Family History Mother Diabetes Hypertension Father Family history of thyroid problem CAD (coronary artery disease) Social History Smoking and tobacco status: never smoked History of recent travel: No Vitals/I&O/Wt Last Vital Signs Temp 100.1 F H 12/20/21 12:37 Pulse 77 12/20/21 18:07 Resp 24 H 12/20/21 18:00 BP 142/86 12/20/21 18:00 Pulse Ox 98 12/20/21 18:07 12/20/21 12/20/21 12/20/21 06:59 14:59 22:59 Intake Total 50 / 50 Balance 50 / 50 Weight last 48 hrs Weight 150 lb Physical Exam Narrative: Patient is arousable but lethargic. No acute distress. Abdomen is soft. No distinct palpable masses. Genitourinary exam shows significant chronic moisture irritation. Meatus is not exposed. It appears to be retracted anteriorly. No obvious vaginal prolapse or discharge. No severe edema. Data : 12/20/21 13:10 12/20/21 13:10 Micro: Microbiology 12/20/21 16:47 Blood Culture - Preliminary Blood SPECIMEN COLLECTED 12/20/21 13:10 Blood Culture - Preliminary Blood SPECIMEN COLLECTED A&P Assessment and plan (1) Genital atrophy of female: Anterior retraction of the urethral meatus but able to identify by feel in place catheter. Maintain catheter as long as needed for medical condition. Can remove when no longer required. Status: Acute (2) Atrial fibrillation: Status: Acute (3) Systolic heart failure: Status: Acute Qualifiers: Heart failure chronicity: chronic Qualified Code(s): I50.22 - Chronic systolic (congestive) heart failure Consult Attestations Medical Necessity Statement: See attending Coding Level of Care Code Acute Nail Artist for Ajay Kasper Diagnoses Genital atrophy of female N94.9 Atrial fibrillation I48.91 Systolic heart failure I50.22 Heart failure chronicity: chronic
[2021-12-20] MEDS: heparin 5,000 unit/mL INJ 1 mL 5000 UNIT SUBCUT (20:35)
[2021-12-20] MEDS: dextrose 5%-sod chloride 0.45% 1,000 ML 100 ML IV (20:35)
[2021-12-20 20:50] LABS: Troponin 5 6HR 74.38 ng/L (0-10)
[2021-12-20 20:52] LABS: Troponin 5 6HR Delta -7.62 ng/L (0-12)
[2021-12-21] VITALS (12 sets, daily range): BP systolic 107–153; BP diastolic 66–79; PULSE 57–67; RESP 14–28; TEMP 36.4–37.6; O2SAT 88–97
[2021-12-21 06:01] LABS: Basophils % 0.2 %; Eosinophils # 0.1 10^3/uL (0.0-0.8); Eosinophils % 0.6 %; Hematocrit 37.9 % (37.0-47.0); Hemoglobin 11.9 g/dL (11.5-15.3); Lymphocytes # 1.2 10^3/uL (0.8-4.8); Lymphocytes % 12.6 %; Mean Corpuscular HGB Conc 31.4 g/dL (30.0-36.0); Mean Corpuscular Hemoglobin 29.8 pg (28.0-34.0); Mean Corpuscular Volume 94.8 fl (81-99); Mean Platelet Volume 11.7 fL (7.4-10.4); Monocytes # 0.9 10^3/uL (0.2-0.9); Monocytes % 9.5 %; Neutrophils # 7.09 10^3/uL (1.8-7.7); Neutrophils % 76.7 %; Nucleated Red Blood Cells % 0.2 %; Platelet Count 212 10^3/cmm (130-400); Red Cell Distribution Width 15.5 % (12.1-15.1); White Blood Count 9.3 10^3/uL (4.0-10.0)
[2021-12-21] MEDS: heparin 5,000 unit/mL INJ 1 mL 5000 UNIT SUBCUT (06:21)
[2021-12-21] MEDS: dextrose 5%-sod chloride 0.45% 1,000 ML 100 ML IV (06:21)
[2021-12-21 06:28] LABS: Procalcitonin 0.16 ng/mL (0-0.5); T3 Free 2.6 PG/ML (2.0-4.4); Thyroid Stimulating Hormone 0.03 uIU/mL (0.27-4.20)
[2021-12-21 06:42] LABS: Alanine Aminotransferase 8 U/L (0-33); Albumin Level 3.5 g/dL (3.5-5.2); Alkaline Phosphatase 69 IU/L (35-105); Aspartate Amino Transferase 16 U/L (0-32); Blood Urea Nitrogen 54 mg/dL (8-23); Calcium 9.5 mg/dL (8.5-10.5); Carbon Dioxide 27 mmol/L (22-29); Chloride 108 mmol/L (98-107); Globulin 3.8 g/dL (1.3-4.6); Glucose 161 mg/dL (65-115); Osmolality Calculated 322 mOsm/kg (285-295); Sodium 147 mmol/L (136-145); Total Bilirubin 0.4 mg/dL (0.15-1.2); Total Protein 7.3 g/dL (6.6-8.7)
[2021-12-21] MEDS: atorvastatin 40 mg Tablet 20 MG PO (09:13)
[2021-12-21] MEDS: dilTIAZem 60 mg Tablet 120 MG PO ×2 (09:13→17:36)
[2021-12-21] MEDS: aspirin 81 mg EC Tablet PO (09:14)
[2021-12-21] MEDS: pantoprazole DR 40 mg Tablet PO (09:14)
[2021-12-21] MEDS: methIMAzole 5 MG Tablet 7.5 MG PO (09:14)
[2021-12-21] MEDS: dextrose 5% 1,000 ML 75 ML IV ×2 (10:56→23:10)
--- NOTE | 2021-12-21 14:06 | XRR_ITS ---
PROCEDURE INFORMATION: Exam: XR Chest Exam date and time: 12/21/2021 2:55 PM Age: 81 years old Clinical indication: Pain; Angina pectoris; Additional info: RT sided chest pain TECHNIQUE: Imaging protocol: XR of the chest. Views: 1 view. COMPARISON: CR XR chest 1V portable [id number] 12/20/2021 11:50 AM FINDINGS: Tubes, catheters and devices: Stable left pacemaker. Lungs: Unremarkable. No consolidation. Pleural spaces: Unremarkable. No pleural effusion. No pneumothorax. Heart/Mediastinum: Stable cardiomegaly. 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 Kyphosis and dextroscoliosis. Other findings: Patient rotation to the left. XR/XR chest 1V portable [id number] IMPRESSION: Stable cardiomegaly.
--- NOTE | 2021-12-21 14:16 | P.PN_ITS ---
Subjective Subjective: Patient was seen and examined this morning, she was oriented to self, able to take p.o. medicines. Medications: Medication Review Details: Generic Name Dose Route Start Last Admin Trade Name Myah PRN Reason Stop Dose Admin Aspirin 81 mg 12/21/21 09:00 12/21/21 09:14 Aspirin 81 Mg Ec Tablet PO 81 mg DAILY VALERIA Administration Atorvastatin Calci um 20 mg 12/21/21 09:00 12/21/21 09:13 Atorvastatin 40 Mg Tablet PO 20 mg DAILY VALERIA Administration Diltiazem HCl 120 mg 12/21/21 09:00 12/21/21 09:13 Diltiazem 60 Mg Tablet PO 120 mg BID VALERIA Administration Ceftriaxone Sodium 1,000 mg/ 50 mls @ 100 mls/ hr 12/20/21 18:00 12/20/21 18:34 Sodium Chloride IV Infused Q24H VALERIA Infusion Protocol Dextrose 1,000 mls @ 75 ml s/hr 12/21/21 10:15 12/21/21 10:56 D5w IV 75 mls/hr .[id number] VALERIA Administration Methimazole 7.5 mg 12/21/21 09:00 12/21/21 09:14 Methimazole 5 Mg Tablet PO 7.5 mg DAILY VALERIA Administration Non-Formulary Medi cation 1 inh 12/21/21 09:00 12/21/21 09:14 Umeclidinium-Cassie anterol [Anoro Ell ipta] INHALATION Not Given DAILY VALERIA Pantoprazole Sodiu m 40 mg 12/21/21 09:00 12/21/21 09:[address] 40 Mg Tablet PO 40 mg DAILY VALERIA Administration Vitals/I&O/Wt Last Vital Signs Temp 99.0 F 12/21/21 12:00 Pulse 62 12/21/21 12:00 Resp 14 12/21/21 12:00 BP 136/68 12/21/21 12:00 Pulse Ox 88 L 12/21/21 12:00 12/20/21 12/21/21 12/21/21 22:59 06:59 14:59 Intake Total 1050 / 1050 976.667 / 2026.667 1000 / 1000 Output Total 400 / 400 Balance 1050 / 1050 576.667 / 5489.491 5469 / 1000 Weight last 48 hrs Weight 59.285 kg Weight 68.039 kg Physical Exam HENMT: COMMON NORMALS: normocephalic and atraumatic HEAD & SCALP: normocephalic and atraumatic Resp: COMMON NORMALS: clear to auscultation bilaterally AUSCULTATION: clear to auscultation bilaterally Cardio: COMMON NORMALS: regular rate, regular rhythm, S1 normal heart sound present, S2 normal heart sound present, No gallops present (Cardio), No murmurs present (Cardio), No rub (Cardio) and Peripheral pulses 2+ throughout RATE: regular rate RHYTHM: regular rhythm HEART SOUNDS: S1 normal heart sound present and S2 normal heart sound present PERIPHERAL PULSES: Peripheral pulses 2+ throughout GI: COMMON NORMALS: Normal to inspection, nondistended, normoactive bowel sounds present, Soft to palpation, non-tender, No hepatosplenomegaly present and no masses AUSCULTATION: Yes normoactive bowel sounds PALPATION: Yes Soft to palpation and Yes No hepatosplenomegaly present RECTAL EXAM: deferred Extremity: COMMON NORMALS: no clubbing, cyanosis or edema and no pedal edema Data : 12/21/21 05:06 12/21/21 05:06 Micro: Microbiology 12/20/21 13:10 Blood Culture - Preliminary Blood NEGATIVE TO DATE 12/20/21 16:47 Blood Culture - Preliminary Blood SPECIMEN COLLECTED A&P Assessment and plan (1) Atrial fibrillation: Status: Acute (2) Systolic heart failure: Status: Acute Qualifiers: Heart failure chronicity: chronic Qualified Code(s): I50.22 - Chronic systolic (congestive) heart failure (3) CAD (coronary artery disease): Status: Acute Qualifiers: Associated angina: without angina Coronary Disease-Associated Art carla/Lesion type: [place] artery [place] vs. transplanted heart: [place] heart Qualified Code(s): I25.10 - Atherosclerotic heart disease of [place] coronary artery without angina pectoris (4) Hyperlipidemia: Status: Acute Qualifiers: Hyperlipidemia type: other hyperlipidemia Qualified Code(s): E78.49 - Other hyperlipidemia (5) HTN (hypertension): Status: Acute Qualifiers: Hypertension type: essential hypertension Qualified Code(s): I10 - Essential (primary) hypertension (6) PVD (peripheral vascular disease): Status: Acute (7) Hyperthyroidism: Status: Acute (8) Hypernatremia: Status: Acute (9) Acute kidney injury superimposed on CKD: Status: Acute Plan 81 year old female with a past medical history of atrial fibrillation on Eliquis, CAD, status post ICD, hypertension, systolic CHF, hyperthyroidism peripheral vascular disease, was brought in with chief complaint of altered mental status. Assessment: Acute metabolic encephalopathy: Likely secondary to hypernatremia, KLAUDIA on CKD, dehydration, Follow blood cultures Urinalysis, urine culture Neurochecks every 4 hours Fall precaution Telemetry monitoring Continue IV hydration with D5 half NS at 100 cc an hour #Subclinical hyperthyroidism: Most recent TSH: 0.12 TSH: 0.03 free T4:1.20 Free T3: 2.6 Total T3: Total T4: Continue methimazole for now #Hypovolemic hypenatremia A.m. serum sodium is:147 Started on D5 water at 75 cc an hour Monitor BMP #Low-grade fever: Admission T max : 100.1 Currently empirically on ceftriaxone, for possible UTI #History of heart failure with reduced ejection fraction Currently compensated Monitor intake output charting k>4, mg >2 Hold Lasix #History of atrial fibrillation Continue Cardizem Continue Eliquis Continue telemetry monitoring #KLAUDIA on CKD stage III: Likely prerenal KLAUDIA Baseline serum creatinine is likely around 1.3-1.5 Admission serum creatinine 2.2 Follow BMP Monitor intake output charting Fuentes catheter in place Avoid nephrotoxic's #Elevated troponin likely type II [place] Monitor EKG Continue aspirin statin Eliquis Sublingual nitro #Urinary retention: Status post Fuentes catheter placement Voiding trial prior to discharge #CODE STATUS:AND #DVT prophylaxis Attestations Medical Necessity Statement*: Patient needs to be hospital for management of Above defined problems. Time Spent in Patient Care: Greater than 35 minutes (>than 50% of time spent in counselling and/or direct pt care on unit) . Coding Level of Care Code Acute Reaming Machine Operator for g Fwd Exam Detailed Diagnoses Atrial fibrillation I48.91 Systolic heart failure I50.22 Heart failure chronicity: chronic CAD (coronary artery disease) I25.10 Associated angina: without angina Coronary Disease-Associated Artery/Lesion type: [place] artery [place] vs. transplanted heart: [place] heart Hyperlipidemia E78.49 Hyperlipidemia type: other hyperlipidemia HTN (hypertension) I10 Hypertension type: essential hypertension PVD (peripheral vascular disease) I73.9 Hyperthyroidism E05.90 Hypernatremia E87.0 Acute kidney injury superimposed on CKD N17.9; N18.9
[2021-12-21] MEDS: ipratropium-albuterol 3 mL Neb INHALATION ×2 (15:11→22:43)
[2021-12-21] MEDS: FUROsemide 10 mg/mL SDV 2mL 20 MG IVP (15:48)
[2021-12-21 15:58] LABS: ABG PCO2 37.9 mmHg (35-45); ABG PH Result 7.49 (7.35-7.45); Alveolar-Arterial Oxygen Gradi 6.1 mmHg (5-10); Arterial Blood Gas Hematocrit 38.7 % (37-47); Blood Gas Operator Identificat glc; Blood Gas Sample Site Brachial, left; Blood Gas Sample Type Arterial; Carboxyhemoglobin 1.1 %THgb (0.4-20.1); HCO3 ABG 28.6 mmol/L (22-26); HGB O2 Sat 88.3 % (95-100); Ionized Calcium Level - ABG 1.2 mmol/L (1.1-1.4); Methemoglobin 0.9 % (0.4-1.5); Oxygen Device OXY MASK; PO2 ABG 53.4 mmHg (80.0-100.0); Potassium Level - ABG 3.9 mmol/L (3.5-5.0); Total Hemoglobin 12.6 g/dL (12-16)
[2021-12-21] MEDS: cefTRIAXone 1,000 MG in sodium chloride 0.9% (plus) 50 ML 100 MG IV (17:40)
--- NOTE | 2021-12-21 19:10 | PC.NURSE ---
Patient has been very drowsy throughout the shift. Patient able to take medications in applesauce. Speech eval. placed but unable to do due to patients mentation. Patients oxygen saturations were not sustaining on 2 L, patient placed on oxy mask on 8L then eventually on bipap. Patients richey is intact and clean, and has adequate output. IV fluids continued. No bowel movement. Report given to JUAN Feliciano.
[2021-12-21] MEDS: apixaban 5 mg Tablet 2.5 MG PO (21:53)
[2021-12-22] VITALS (15 sets, daily range): BP systolic 112–152; BP diastolic 52–84; PULSE 57–68; RESP 16–28; TEMP 36.5–38.8; O2SAT 93–98
[2021-12-22] MEDS: ipratropium-albuterol 3 mL Neb INHALATION ×4 (04:29→22:04)
[2021-12-22 05:33] LABS: Basophils % 0.1 %; Eosinophils % 0.1 %; Hematocrit 37.5 % (37.0-47.0); Lymphocytes # 0.8 10^3/uL (0.8-4.8); Lymphocytes % 4.5 %; Mean Corpuscular Hemoglobin 29.6 pg (28.0-34.0); Mean Corpuscular Volume 92.4 fl (81-99); Mean Platelet Volume 11.7 fL (7.4-10.4); Monocytes % 5.9 %; Neutrophils # 15.47 10^3/uL (1.8-7.7); Nucleated Red Blood Cells % 0.1 %; Platelet Count 221 10^3/cmm (130-400); Red Blood Count 4.06 10^6/uL (4.1-5.3); Red Cell Distribution Width 15.8 % (12.1-15.1); White Blood Count 17.4 10^3/uL (4.0-10.0)
[2021-12-22 06:04] LABS: Alanine Aminotransferase 9 U/L (0-33); Albumin Level 3.4 g/dL (3.5-5.2); Alkaline Phosphatase 71 IU/L (35-105); Anion Gap 15.8 (5-19); Aspartate Amino Transferase 28 U/L (0-32); Blood Urea Nitrogen 38 mg/dL (8-23); Calcium 9.4 mg/dL (8.5-10.5); Carbon Dioxide 25 mmol/L (22-29); Chloride 102 mmol/L (98-107); Globulin 4.5 g/dL (1.3-4.6); Glucose 167 mg/dL (65-115); NT Pro B Type Natriuretic Pept 10942 pg/mL (0-450); Osmolality Calculated 301 mOsm/kg (285-295); Potassium 3.8 mmol/L (3.5-5.1); Sodium 139 mmol/L (136-145); Total Bilirubin 0.4 mg/dL (0.15-1.2); Total Protein 7.9 g/dL (6.6-8.7)
--- NOTE | 2021-12-22 07:20 | PC.NURSE ---
I reported the high temp. 101.3 to the nurse
[2021-12-22] MEDS: pantoprazole DR 40 mg Tablet PO (07:48)
[2021-12-22] MEDS: apixaban 5 mg Tablet 2.5 MG PO ×2 (07:49→21:23)
[2021-12-22] MEDS: acetaminophen 325 mg Tablet 650 MG PO ×2 (07:49→17:17)
[2021-12-22] MEDS: aspirin 81 mg EC Tablet PO (07:49)
[2021-12-22] MEDS: atorvastatin 40 mg Tablet 20 MG PO (07:49)
[2021-12-22] MEDS: dilTIAZem 60 mg Tablet 120 MG PO ×2 (07:57→17:16)
[2021-12-22] MEDS: methIMAzole 5 MG Tablet 7.5 MG PO (07:57)
[2021-12-22] MEDS: piperacillin-tazobactam 3.375 GM in sodium chloride 0.9% (plus) 50 ML IV ×2 (10:09→17:16)
[2021-12-22] MEDS: dextrose 5% 1,000 ML 30 ML IV (10:09)
--- NOTE | 2021-12-22 21:56 | PM.PN ---
Subjective Subjective: Patient was seen and examined this morning, she was oriented to self, Noted T MAX: 101.8, Good urine output,currently suplemental oxygen requirement is at around 6Ls, BUN/SCR Has improved. Medications: Medication Review Details: Generic Name Dose Route Start Last Admin Trade Name Myah PRN Reason Stop Dose Admin Aspirin 81 mg 12/21/21 09:00 12/21/21 09:14 Aspirin 81 Mg Ec Tablet PO 81 mg DAILY VALERIA Administration Atorvastatin Calci um 20 mg 12/21/21 09:00 12/21/21 09:13 Atorvastatin 40 Mg Tablet PO 20 mg DAILY VALERIA Administration Diltiazem HCl 120 mg 12/21/21 09:00 12/21/21 09:13 Diltiazem 60 Mg Tablet PO 120 mg BID VALERIA Administration Ceftriaxone Sodium 1,000 mg/ 50 mls @ 100 mls/ hr 12/20/21 18:00 12/20/21 18:34 Sodium Chloride IV Infused Q24H VALERIA Infusion Protocol Dextrose 1,000 mls @ 75 ml s/hr 12/21/21 10:15 12/21/21 10:56 D5w IV 75 mls/hr .[id number] VALERIA Administration Methimazole 7.5 mg 12/21/21 09:00 12/21/21 09:14 Methimazole 5 Mg Tablet PO 7.5 mg DAILY VALERIA Administration Non-Formulary Medi cation 1 inh 12/21/21 09:00 12/21/21 09:14 Umeclidinium-Cassie anterol [Anoro Ell ipta] INHALATION Not Given DAILY VALERIA Pantoprazole Sodiu m 40 mg 12/21/21 09:00 12/21/21 09:[address] 40 Mg Tablet PO 40 mg DAILY VALERIA Administration Vitals/I&O/Wt Last Vital Signs Temp 101.8 F H 12/22/21 18:55 Pulse 66 12/22/21 18:55 Resp 18 12/22/21 18:55 BP 146/52 12/22/21 18:55 Pulse Ox 97 12/22/21 18:55 12/22/21 12/22/21 12/22/21 06:59 14:59 22:59 Intake Total 917.5 / 1967.5 1050 / 1050 50 / 1100 Output Total 300 / 2750 Balance 617.5 / -782.5 1050 / 1050 50 / 1100 Weight last 48 hrs Weight 59.285 kg Physical Exam HENMT: COMMON NORMALS: normocephalic and atraumatic HEAD & SCALP: normocephalic and atraumatic Chest: COMMONS NORMALS: normal inspection of the chest CHEST: Yes Symmetrical chest wall rise Resp: COMMON NORMALS: clear to auscultation bilaterally EFFORT & INSPECTION: Yes symmetric chest movement AUSCULTATION: clear to auscultation bilaterally Cardio: COMMON NORMALS: regular rate, regular rhythm, S1 normal heart sound present, S2 normal heart sound present, No gallops present (Cardio), No murmurs present (Cardio), No rub (Cardio) and Peripheral pulses 2+ throughout RATE: regular rate RHYTHM: regular rhythm HEART SOUNDS: S1 normal heart sound present and S2 normal heart sound present PERIPHERAL PULSES: Peripheral pulses 2+ throughout GI: COMMON NORMALS: Normal to inspection, nondistended, normoactive bowel sounds present, Soft to palpation, non-tender, No hepatosplenomegaly present and no masses AUSCULTATION: Yes normoactive bowel sounds PALPATION: Yes Soft to palpation and Yes No hepatosplenomegaly present RECTAL EXAM: deferred Extremity: COMMON NORMALS: no clubbing, cyanosis or edema and no pedal edema Data : 12/22/21 05:05 12/22/21 05:05 Micro: Microbiology 12/20/21 18:32 Urine Culture - Final Urine,Clean Catch A&P Assessment and plan (1) Atrial fibrillation: Status: Acute (2) Systolic heart failure: Status: Acute Qualifiers: Heart failure chronicity: chronic Qualified Code(s): I50.22 - Chronic systolic (congestive) heart failure (3) CAD (coronary artery disease): Status: Acute Qualifiers: Coronary Disease-Associated Artery/Lesion type: [place] artery [place] vs. transplanted heart: [place] heart Associated angina: without angina Qualified Code(s): I25.10 - Atherosclerotic heart disease of [place] coronary artery without angina pectoris (4) Hyperlipidemia: Status: Acute Qualifiers: Hyperlipidemia type: other hyperlipidemia Qualified Code(s): E78.49 - Other hyperlipidemia (5) HTN (hypertension): Status: Acute Qualifiers: Hypertension type: essential hypertension Qualified Code(s): I10 - Essential (primary) hypertension (6) PVD (peripheral vascular disease): Status: Acute (7) Hyperthyroidism: Status: Acute (8) Hypernatremia: Status: Acute (9) Acute kidney injury superimposed on CKD: Status: Acute Plan 81 year old female with a past medical history of atrial fibrillation on Eliquis, CAD, status post ICD, hypertension, systolic CHF, hyperthyroidism peripheral vascular disease, was brought in with chief complaint of altered mental status. Assessment: Acute metabolic encephalopathy: Likely secondary to hypernatremia, KLAUDIA on CKD, dehydration, Follow blood cultures Urinalysis, urine culture Neurochecks every 4 hours Fall precaution Telemetry monitoring Continue IV hydration with D5 half NS at 100 cc an hour Sepsis : Currently source is unclear :Possible aspiration PNA : Fever,elevated WBC, Tachypenic, encephalopathy, Follow Lactic acid, Procalcitonin, COVID PCR is negative Currently on zosyn #Subclinical hyperthyroidism: Most recent TSH: 0.12 TSH: 0.03 free T4:1.20 Free T3: 2.6 Total T3: Total T4: Continue methimazole for now #Hypovolemic hypenatremia A.m. serum sodium is:147 Started on D5 water at 75 cc an hour Monitor BMP #History of heart failure with reduced ejection fraction Currently compensated Monitor intake output charting k>4, mg >2 Hold Lasix #History of atrial fibrillation Continue Cardizem Continue Eliquis Continue telemetry monitoring #KLAUDIA on CKD stage III: Likely prerenal KLAUDIA Baseline serum creatinine is likely around 1.3-1.5 Admission serum creatinine 2.2 Follow BMP Monitor intake output charting Fuentes catheter in place Avoid nephrotoxic's #Elevated troponin likely type II [place] Monitor EKG Continue aspirin statin Eliquis Sublingual nitro #Urinary retention: Status post Fuentes catheter placement Voiding trial prior to discharge #CODE STATUS:AND #DVT prophylaxis Attestations Medical Necessity Statement*: Patient needs to be in hospital for the management of above defined problems. Time Spent in Patient Care: Greater than 35 minutes (>than 50% of time spent in counselling and/or direct pt care on unit). Coding Level of Care Code Acute Ear Machine Operator for g Fwd Diagnoses Atrial fibrillation I48.91 Systolic heart failure I50.22 Heart failure chronicity: chronic CAD (coronary artery disease) I25.10 Coronary Disease-Associated Artery/Lesion type: [place] artery [place] vs. transplanted heart: [place] heart Associated angina: without angina Hyperlipidemia E78.49 Hyperlipidemia type: other hyperlipidemia HTN (hypertension) I10 Hypertension type: essential hypertension PVD (peripheral vascular disease) I73.9 Hyperthyroidism E05.90 Hypernatremia E87.0 Acute kidney injury superimposed on CKD N17.9; N18.9
[2021-12-23] VITALS (16 sets, daily range): BP systolic 110–137; BP diastolic 60–78; PULSE 58–78; RESP 16–24; TEMP 36.5–37.1; O2SAT 94–99
[2021-12-23] MEDS: piperacillin-tazobactam 3.375 GM in sodium chloride 0.9% (plus) 50 ML IV ×3 (00:40→16:40)
[2021-12-23 03:13] LABS: Basophils % 0.1 %; Eosinophils % 0.2 %; Hematocrit 37.2 % (37.0-47.0); Hemoglobin 11.8 g/dL (11.5-15.3); Lymphocytes # 1.4 10^3/uL (0.8-4.8); Lymphocytes % 10.8 %; Mean Corpuscular HGB Conc 31.7 g/dL (30.0-36.0); Mean Corpuscular Volume 94.7 fl (81-99); Mean Platelet Volume 11.9 fL (7.4-10.4); Monocytes # 0.8 10^3/uL (0.2-0.9); Neutrophils # 10.79 10^3/uL (1.8-7.7); Neutrophils % 82.4 %; Nucleated Red Blood Cells % 0 %; Platelet Count 178 10^3/cmm (130-400); Red Blood Count 3.93 10^6/uL (4.1-5.3); Red Cell Distribution Width 15.8 % (12.1-15.1); White Blood Count 13.1 10^3/uL (4.0-10.0)
[2021-12-23] MEDS: ipratropium-albuterol 3 mL Neb INHALATION ×4 (03:22→20:17)
[2021-12-23 03:34] LABS: Alanine Aminotransferase 10 U/L (0-33); Albumin Level 3.3 g/dL (3.5-5.2); Alkaline Phosphatase 66 IU/L (35-105); Anion Gap 17.3 (5-19); Aspartate Amino Transferase 21 U/L (0-32); Blood Urea Nitrogen 39 mg/dL (8-23); Calcium 9.4 mg/dL (8.5-10.5); Carbon Dioxide 25 mmol/L (22-29); Chloride 104 mmol/L (98-107); Globulin 3.9 g/dL (1.3-4.6); Glucose 144 mg/dL (65-115); Osmolality Calculated 308 mOsm/kg (285-295); Potassium 3.3 mmol/L (3.5-5.1); Sodium 143 mmol/L (136-145); Total Bilirubin 0.7 mg/dL (0.15-1.2); Total Protein 7.2 g/dL (6.6-8.7)
[2021-12-23 08:07] LABS: T3 Total 83 ng/dL (76-181)
[2021-12-23] MEDS: dilTIAZem 60 mg Tablet 120 MG PO (08:50)
[2021-12-23] MEDS: methIMAzole 5 MG Tablet 7.5 MG PO (08:50)
[2021-12-23] MEDS: aspirin 81 mg EC Tablet PO (08:51)
[2021-12-23] MEDS: apixaban 5 mg Tablet 2.5 MG PO ×2 (08:51→19:55)
[2021-12-23] MEDS: atorvastatin 40 mg Tablet 20 MG PO (08:51)
[2021-12-23] MEDS: dextrose 5% 1,000 ML 30 ML IV (08:52)
[2021-12-23] MEDS: pantoprazole DR 40 mg Tablet PO (08:52)
--- NOTE | 2021-12-23 11:01 | PC.SOCIAL ---
IMM Update pg 2 of [facility] updated and reviewed w/ patients daughter Marti. Copy placed in chart and copy left in room and offered to provide her w/ # if she would like it.
[2021-12-23 11:03] LABS: T4 Total 5.2 mcg/dL (5.1-11.9)
[2021-12-23] MEDS: FUROsemide 20 mg Tablet PO (11:18)
--- NOTE | 2021-12-23 11:49 | PM.PN ---
Subjective Subjective: Patient was seen and examined this morning,she at her baseline mentation, oriented to self, Has remained afebrile in the last 12 hours, last T-max of 101.8 noted at 7 PM yesterday. She was placed on BiPAP at night. Medications: Medication Review Details: Generic Name Dose Route Start Last Admin Trade Name Myah PRN Reason Stop Dose Admin Aspirin 81 mg 12/21/21 09:00 12/21/21 09:14 Aspirin 81 Mg Ec Tablet PO 81 mg DAILY VALERIA Administration Atorvastatin Calci um 20 mg 12/21/21 09:00 12/21/21 09:13 Atorvastatin 40 Mg Tablet PO 20 mg DAILY VALERIA Administration Diltiazem HCl 120 mg 12/21/21 09:00 12/21/21 09:13 Diltiazem 60 Mg Tablet PO 120 mg BID VALERIA Administration Ceftriaxone Sodium 1,000 mg/ 50 mls @ 100 mls/ hr 12/20/21 18:00 12/20/21 18:34 Sodium Chloride IV Infused Q24H VALERIA Infusion Protocol Dextrose 1,000 mls @ 75 ml s/hr 12/21/21 10:15 12/21/21 10:56 D5w IV 75 mls/hr .[id number] VALERIA Administration Methimazole 7.5 mg 12/21/21 09:00 12/21/21 09:14 Methimazole 5 Mg Tablet PO 7.5 mg DAILY VALERIA Administration Non-Formulary Medi cation 1 inh 12/21/21 09:00 12/21/21 09:14 Umeclidinium-Cassie anterol [Anoro Ell ipta] INHALATION Not Given DAILY VALERIA Pantoprazole Sodiu m 40 mg 12/21/21 09:00 12/21/21 09:[address] 40 Mg Tablet PO 40 mg DAILY VALERIA Administration Vitals/I&O/Wt Last Vital Signs Temp 98.7 F 12/23/21 11:27 Pulse 78 12/23/21 11:27 Resp 18 12/23/21 11:27 BP 124/78 12/23/21 11:27 Pulse Ox 98 12/23/21 11:27 12/22/21 12/23/21 12/23/21 22:59 06:59 14:59 Intake Total 50 / 1100 50 / 1150 681.5 / 681.5 Output Total 700 / 700 Balance 50 / 1100 -650 / 450 681.5 / 681.5 Physical Exam Narrative: Alert awake oriented to self HENMT: COMMON NORMALS: normocephalic and atraumatic HEAD & SCALP: normocephalic and atraumatic Chest: COMMONS NORMALS: normal inspection of the chest CHEST: Yes Symmetrical chest wall rise Resp: COMMON NORMALS: clear to auscultation bilaterally EFFORT & INSPECTION: Yes symmetric chest movement AUSCULTATION: clear to auscultation bilaterally Cardio: COMMON NORMALS: regular rate, regular rhythm, S1 normal heart sound present, S2 normal heart sound present, No gallops present (Cardio), No murmurs present (Cardio), No rub (Cardio) and Peripheral pulses 2+ throughout RATE: regular rate RHYTHM: regular rhythm HEART SOUNDS: S1 normal heart sound present and S2 normal heart sound present PERIPHERAL PULSES: Peripheral pulses 2+ throughout GI: COMMON NORMALS: Normal to inspection, nondistended, normoactive bowel sounds present, Soft to palpation, non-tender, No hepatosplenomegaly present and no masses AUSCULTATION: Yes normoactive bowel sounds PALPATION: Yes Soft to palpation and Yes No hepatosplenomegaly present RECTAL EXAM: deferred Extremity: COMMON NORMALS: no clubbing, cyanosis or edema and no pedal edema Data : 12/23/21 02:13 12/23/21 02:13 Micro: Microbiology 12/20/21 18:32 Urine Culture - Final Urine,Clean Catch A&P Assessment and plan (1) Atrial fibrillation: Status: Acute (2) Systolic heart failure: Status: Acute Qualifiers: Heart failure chronicity: chronic Qualified Code(s): I50.22 - Chronic systolic (congestive) heart failure (3) CAD (coronary artery disease): Status: Acute Qualifiers: Associated angina: without angina Coronary Disease-Associated Artery/Lesion type: [place] artery [place] vs. transplanted heart: [place] heart Qualified Code(s): I25.10 - Atherosclerotic heart disease of [place] coronary artery without angina pectoris (4) Hyperlipidemia: Status: Acute Qualifiers: Hyperlipidemia type: other hyperlipidemia Qualified Code(s): E78.49 - Other hyperlipidemia (5) HTN (hypertension): Status: Acute Qualifiers: Hypertension type: essential hypertension Qualified Code(s): I10 - Essential (primary) hypertension (6) PVD (peripheral vascular disease): Status: Acute (7) Hyperthyroidism: Status: Acute (8) Hypernatremia: Status: Acute (9) Acute kidney injury superimposed on CKD: Status: Acute Plan 81 year old female with a past medical history of atrial fibrillation on Eliquis, CAD, status post ICD, hypertension, systolic CHF, hyperthyroidism peripheral vascular disease, was brought in with chief complaint of altered mental status. Assessment: Acute metabolic encephalopathy: Likely secondary to hypernatremia, KLAUDIA on CKD, dehydration,Sepsis,Possible Aspiration PNA Follow blood cultures: NTD Urinalysis, urine culture: Negative Neurochecks every 4 hours Fall precaution Telemetry monitoring Continue IV hydration with D5w @ 30 cc/hr Sepsis : Currently source is unclear :Possible aspiration PNA : Fever,elevated WBC, Tachypenic, encephalopathy, Procalcitonin: Normal Lactic acid : 1.3 COVID PCR is negative. Was Initially on Ceftriaxone, she was switched to Zosyn to cover for Aspiration PNA as she spiked tempreature. #Likely Subclinical hyperthyroidism: due to non compliance. Most recent TSH: 0.12 Repeat TSH: 0.03 free T4:1.20 Free T3: 2.6 Total T3: 83 Total T4: 5.2 Continue methimazole 7.5 mg po daily for now and ensure compliance. Medication reviewed for possible falsely low TSH Repeat TSH in 4 weeks #Hypovolemic hypenatremia A.m. serum sodium is:147 Started on D5 water at 75 cc an hour Monitor BMP #History of heart failure with reduced ejection fraction Currently compensated Monitor intake output charting k>4, mg >2 Lasix as needed #History of atrial fibrillation Continue Cardizem 120 IR BID. Continue Eliquis Continue telemetry monitoring #KLAUDIA on CKD stage III: Likely prerenal KLAUDIA Baseline serum creatinine is likely around 1.3-1.5 Admission serum creatinine 2.2 Current serum creatinine: 1.5 Follow BMP Monitor intake output charting Fuentes catheter in place Avoid nephrotoxic's #Elevated troponin likely type II [place] Monitor EKG Continue aspirin statin Eliquis Sublingual nitro #Urinary retention: Status post Fuentes catheter placement Voiding trial prior to discharge #Nutrition: Poor oral intake, SPL is working with the patient. #CODE STATUS:AND #DVT prophylaxis: Not needed on Eliquis Attestations Medical Necessity Statement*: Patient needs to be in hospital for management of above defined problems. Time Spent in Patient Care: Greater than 35 minutes (>than 50% of time spent in counselling and/or direct pt care on unit). Coding Level of Care Code Acute Mud Temperer for Chg Fwd Exam Detailed Diagnoses Atrial fibrillation I48.91 Systolic heart failure I50.22 Heart failure chronicity: chronic CAD (coronary artery disease) I25.10 Associated angina: without angina Coronary Disease-Associated Artery/Lesion type: [place] artery [place] vs. transplanted heart: [place] heart Hyperlipidemia E78.49 Hyperlipidemia type: other hyperlipidemia HTN (hypertension) I10 Hypertension type: essential hypertension PVD (peripheral vascular disease) I73.9 Hyperthyroidism E05.90 Hypernatremia E87.0 Acute kidney injury superimposed on CKD N17.9; N18.9
[2021-12-23] MEDS: dilTIAZem ER (24HR) 120 mg Capsule PO (18:05)
[2021-12-23] MEDS: acetaminophen 325 mg Tablet 650 MG PO (19:55)
[2021-12-24] VITALS (14 sets, daily range): BP systolic 120–136; BP diastolic 64–80; PULSE 56–70; RESP 16–26; TEMP 36.5–37.1; O2SAT 93–100
[2021-12-24] MEDS: piperacillin-tazobactam 3.375 GM in sodium chloride 0.9% (plus) 50 ML IV (00:50)
[2021-12-24] MEDS: ipratropium-albuterol 3 mL Neb INHALATION ×3 (02:00→15:44)
[2021-12-24 03:53] LABS: Basophils % 0.1 %; Eosinophils # 0.3 10^3/uL (0.0-0.8); Eosinophils % 2.3 %; Hemoglobin 11.2 g/dL (11.5-15.3); Lymphocytes # 1.4 10^3/uL (0.8-4.8); Lymphocytes % 11.7 %; Mean Corpuscular HGB Conc 31.1 g/dL (30.0-36.0); Mean Corpuscular Hemoglobin 29.8 pg (28.0-34.0); Mean Corpuscular Volume 95.7 fl (81-99); Mean Platelet Volume 12.5 fL (7.4-10.4); Monocytes # 0.7 10^3/uL (0.2-0.9); Neutrophils # 9.47 10^3/uL (1.8-7.7); Neutrophils % 79.6 %; Nucleated Red Blood Cells % 0 %; Platelet Count 188 10^3/cmm (130-400); Red Blood Count 3.76 10^6/uL (4.1-5.3); Red Cell Distribution Width 15.8 % (12.1-15.1); White Blood Count 11.9 10^3/uL (4.0-10.0)
[2021-12-24 04:15] LABS: Blood Urea Nitrogen 33 mg/dL (8-23); Calcium 9.3 mg/dL (8.5-10.5); Carbon Dioxide 26 mmol/L (22-29); Chloride 101 mmol/L (98-107); Glucose 127 mg/dL (65-115); Osmolality Calculated 299 mOsm/kg (285-295); Sodium 140 mmol/L (136-145)
[2021-12-24] MEDS: apixaban 5 mg Tablet 2.5 MG PO (11:14)
[2021-12-24] MEDS: atorvastatin 40 mg Tablet 20 MG PO (11:15)
[2021-12-24] MEDS: aspirin 81 mg EC Tablet PO (11:15)
[2021-12-24] MEDS: dilTIAZem ER (24HR) 120 mg Capsule PO (11:15)
[2021-12-24] MEDS: methIMAzole 5 MG Tablet 7.5 MG PO (11:16)
[2021-12-24] MEDS: pantoprazole DR 40 mg Tablet PO (11:18)
--- NOTE | 2021-12-24 13:08 | PM.DCS ---
Discharge Providers Date of Admission: 12/20/21 17:12 Date of Discharge: December 24, 2021 Attending Provider at Admission: Chris Rolle MD Attending Provider at Discharge: Marcos Antony Primary Care Provider: Crescencio Phillips MD Diagnoses at Discharge Discharge Diagnosis (1) Atrial fibrillation: Status: Acute (2) Systolic heart failure: Status: Acute Qualifiers: Heart failure chronicity: chronic Qualified Code(s): I50.22 - Chronic systolic (congestive) heart failure (3) CAD (coronary artery disease): Status: Acute Qualifiers: Coronary Disease-Associated Artery/Lesion type: [place] artery [place] vs. transplanted heart: [place] heart Associated angina: without angina Qualified Code(s): I25.10 - Atherosclerotic heart disease of [place] coronary artery without angina pectoris (4) Hyperlipidemia: Status: Acute Qualifiers: Hyperlipidemia type: other hyperlipidemia Qualified Code(s): E78.49 - Other hyperlipidemia (5) HTN (hypertension): Status: Acute Qualifiers: Hypertension type: essential hypertension Qualified Code(s): I10 - Essential (primary) hypertension (6) PVD (peripheral vascular disease): Status: Acute (7) Hyperthyroidism: Status: Acute (8) Hypernatremia: Status: Acute (9) Acute kidney injury superimposed on CKD: Status: Acute Reason for Visit Reason for Visit: FEVER/ TREMORS Hospital Course Hospital Course Pleasant 81-year-old lady with history of A. fib, on chronic anticoagulation with Eliquis, CAD, status post ICD, HTN, systolic CHF, hyperthyroidism, PAD, [facility] resident was brought in for evaluation due to altered mental status, with a recent fall, CT of the head and presentation without evidence of acute abnormality, initial chest x-ray without acute findings with linear atelectasis or scarring in the left lung base, cardiomegaly, chronic emphysema, AICD. During hospitalization with noted fever, highest 101.8. On presentation with urinary retention, with gentle atrophy making difficult to place a Fuentes, this was placed by urology. Was empirically treated with ceftriaxone initially, subsequently with Zosyn, initially for possible UTI, subsequently also for pneumonia. No recurrence of fever since 12/22. Blood cultures are negative. Urine culture was unrevealing. Initially with sepsis, fever, leukocytosis, tachypnea, with encephalopathy, this has since resolved. Leukocytosis has been trending down. She is awake, alert, is not oriented x3, but is comfortable, denies any complaints, is happy to hear about discharge back to [facility], asks about how she would get a ride back. On presentation with also noted acute kidney injury on chronic kidney disease. Creatinine up to 2.2, usual baseline appears around 1.1-1.3. With also hypovolemic hyponatremia. Lasix were held, she had received transient IV hydration. Lasix for now changed to as needed dosing. Renal function is improved, creatinine down to 1.2, please reassess renal function, electrolytes. Received replacement for mild hypokalemia. Monitor for any symptoms of recurrent urinary retention. Discussed with her daughter. Physical Exam Const: COMMON NORMALS: no acute distress GENERAL APPEARANCE: cooperative ORIENTATION/CONSCIOUSNESS: Yes awake OTHER: In good spirits HENMT: COMMON NORMALS: oropharynx normal Neck/C-Spine: COMMON NORMALS: no JVD Resp: COMMON NORMALS: normal respiratory effort and clear to auscultation bilaterally AUSCULTATION: clear to auscultation bilaterally Cardio: COMMON NORMALS: no JVD, regular rhythm, S1 normal heart sound present, S2 normal heart sound present and No murmurs present (Cardio) RHYTHM: regular rhythm HEART SOUNDS: S1 normal heart sound present and S2 normal heart sound present GI: COMMON NORMALS: Normal to inspection, nondistended, normoactive bowel sounds present, Soft to palpation and non-tender PALPATION: Yes Soft to palpation Extremity: COMMON NORMALS: no joint enlargement and no pedal edema Neuro: COMMON NORMALS: moves all extremities Skin: COMMON NORMALS: no rashes or lesions noted GENERAL SKIN EXAM: no rashes or lesions noted Discharge Data Studies Completed and Pending Completed Studies During Hospitalization Category Date Time Status CT head wo con* [id number] Stat Cat Scan 12/20/21 14:36 Completed XR chest 1V portable [id number] Routine Exams 12/21/21 14:06 Completed XR chest 1V portable [id number] Stat Exams 12/20/21 12:45 Completed Pending at discharge Category Date Time Status Arterial Blood Gas Full Stat Lab 12/20/21 13:20 Results BMP [Basic Metabolic Panel] AM LABS Lab 12/25/21 04:00 Ordered BMP [Basic Metabolic Panel] AM LABS Lab 12/26/21 04:00 Ordered Blood Culture Stat Lab 12/20/21 16:47 Results CBC Auto Diff [Complete Blood Count w/Auto] AM LABS Lab 12/25/21 04:00 Ordered CBC Auto Diff [Complete Blood Count w/Auto] AM LABS Lab 12/26/21 04:00 Ordered COVID [SARS Covid-2 Antigen] Routine Lab 12/24/21 12:42 Uncollected Radiology Impressions Head CT 12/20/21 14:36 IMPRESSION: 1. No evidence of intracranial hemorrhage or mass effect. 2. Moderate small vessel changes. Moderate parenchymal volume loss. 3. No acute intracranial findings. Chest X-Ray 12/21/21 14:06 IMPRESSION: Stable cardiomegaly. Laboratory Results WBC 11.9 10^3/uL (4.0-10.0) H 12/24/21 02:38 RBC 3.76 10^6/uL (4.1-5.3) L 12/24/21 02:38 Hgb 11.2 g/dL (11.5-15.3) L 12/24/21 02:38 Hct 36.0 % (37.0-47.0) L 12/24/21 02:38 MCV 95.7 fl (81-99) 12/24/21 02:38 MCH 29.8 pg (28.0-34.0) 12/24/21 02:38 MCHC 31.1 g/dL (30.0-36.0) 12/24/21 02:38 RDW 15.8 % (12.1-15.1) H 12/24/21 02:38 Plt Count 188 10^3/cmm (130-400) 12/24/21 02:38 MPV 12.5 fL (7.4-10.4) H 12/24/21 02:38 Neut % (Auto) 79.6 % 12/24/21 02:38 Lymph % (Auto) 11.7 % 12/24/21 02:38 [place] % (Auto) 6.0 % 12/24/21 02:38 Eos % (Auto) 2.3 % 12/24/21 02:38 Baso % (Auto) 0.1 % 12/24/21 02:38 Neut # (Auto) 9.47 10^3/uL (1.8-7.7) H 12/24/21 02:38 Lymph # (Auto) 1.4 10^3/uL (0.8-4.8) 12/24/21 02:38 [place] # (Auto) 0.7 10^3/uL (0.2-0.9) 12/24/21 02:38 Eos # (Auto) 0.3 10^3/uL (0.0-0.8) 12/24/21 02:38 Baso # (Auto) 0.0 10^3/uL (0.0-0.1) 12/24/21 02:38 Nucleated RBC % (auto) 0 % 12/24/21 02:38 Nucleated RBCs # 0.0 /100WBC 12/24/21 02:38 Specimen Type Arterial 12/21/21 15:47 Sample Site Brachial, left 12/21/21 15:47 ABG pH 7.49 (7.35-7.45) H 12/21/21 15:47 ABG pCO2 37.9 mmHg (35-45) 12/21/21 15:47 ABG pO2 53.4 mmHg (80.0-100.0) L 12/21/21 15:47 ABG HCO3 28.6 mmol/L (22-26) H 12/21/21 15:47 ABG O2 Saturation 90.0 12/21/21 15:47 ABG Base Excess 5.0 mmol/L (-2.0-2.0) H 12/21/21 15:47 Dieudonne Test N/a 12/21/21 15:47 A-a O2 Gradient 6.1 mmHg (5-10) 12/21/21 15:47 Hematocrit 38.7 % (37-47) 12/21/21 15:47 Hgb O2 Saturation 88.3 % (95-100) L 12/21/21 15:47 Carboxyhemoglobin 1.1 %THgb (0.4-20.1) 12/21/21 15:47 Methemoglobin 0.9 % (0.4-1.5) 12/21/21 15:47 Total Hemoglobin 12.6 g/dL (12-16) 12/21/21 15:47 Sodium 149.0 mmol/L (131-143) H 12/21/21 15:47 Potassium 3.9 mmol/L (3.5-5.0) 12/21/21 15:47 Glucose 150.0 mg/dL (70-115) H 12/21/21 15:47 Ionized Calcium 1.2 mmol/L (1.1-1.4) 12/21/21 15:47 O2 Delivery Device Oxy mask 12/21/21 15:47 O2 Liters/Min 8.0 % 12/21/21 15:47 Slide Developer ID glc 12/21/21 15:47 Sodium 140 mmol/L (136-145) 12/24/21 02:38 Potassium 3.0 mmol/L (3.5-5.1) L 12/24/21 02:38 Chloride 101 mmol/L (98-107) 12/24/21 02:38 Carbon Dioxide 26 mmol/L (22-29) 12/24/21 02:38 Anion Gap 16.0 (5-19) 12/24/21 02:38 BUN 33 mg/dL (8-23) H 12/24/21 02:38 Creatinine 1.2 mg/dL (0.5-0.9) H 12/24/21 02:38 GFR Calculation Not Reportable 12/24/21 02:38 Glucose 127 mg/dL (65-115) H 12/24/21 02:38 Calculated Osmolality 299 mOsm/kg (285-295) H 12/24/21 02:38 Lactic Acid 1.3 mmol/L (0.5-2.2) 12/20/21 13:10 Calcium 9.3 mg/dL (8.5-10.5) 12/24/21 02:38 Magnesium 2.2 mg/dL (1.7-2.3) 12/20/21 13:10 Total Bilirubin 0.7 mg/dL (0.15-1.2) 12/23/21 02:13 AST 21 U/L (0-32) 12/23/21 02:13 ALT 10 U/L (0-33) 12/23/21 02:13 Alkaline Phosphatase 66 IU/L (35-105) 12/23/21 02:13 Creatine Kinase 255 U/L (26-192) H 12/20/21 13:10 Troponin T Baseline 82 ng/L (0-10) H 12/20/21 13:10 Troponin T 120 Minute 71.61 ng/L (0-10) H 12/20/21 15:02 Delta Troponin T -10.39 ABS# (0-10) L 12/20/21 15:02 Troponin T Hi Sens 6Hr 74.38 ng/L (0-10) H 12/20/21 20:19 Troponin T Hi Sens 6Hr Delta -7.62 ng/L (0-12) L 12/20/21 20:19 NT-Pro-B Natriuret Pep 19256 pg/mL (0-450) H 12/22/21 05:05 Total Protein 7.2 g/dL (6.6-8.7) 12/23/21 02:13 Albumin 3.3 g/dL (3.5-5.2) L 12/23/21 02:13 Globulin 3.9 g/dL (1.3-4.6) 12/23/21 02:13 Lipase 43 U/L (13-60) 12/20/21 13:10 Procalcitonin 0.16 ng/mL (0-0.5) 12/21/21 05:06 TSH 0.03 uIU/mL (0.27-4.20) L 12/21/21 05:06 TSH Cancelled 12/21/21 05:06 Free T4 1.20 ng/dL (0.82-1.77) 12/21/21 05:06 Thyroxine (T4) 5.2 mcg/dL (5.1-11.9) 12/22/21 05:05 Free T3 2.6 PG/ML (2.0-4.4) 12/21/21 05:06 Total T3 83 ng/dL (76-181) 12/22/21 05:05 Urine Color Yellow (Yellow) 12/20/21 18:32 Urine Appearance Clear (CLEAR) 12/20/21 18:32 Urine pH 5 (5-7) 12/20/21 18:32 Ur Specific [place] 1.010 (1.005-1.030) 12/20/21 18:32 Urine Protein Neg (Negative) 12/20/21 18:32 Urine Glucose (UA) Norm (Normal) 12/20/21 18:32 Urine Ketones Negative (Negative) 12/20/21 18:32 Urine Blood 2+ (Negative) H 12/20/21 18:32 Urine Nitrate Negative (Negative) 12/20/21 18:32 Urine Bilirubin Neg (Negative) 12/20/21 18:32 Urine Urobilinogen Norm mg/dL (Negative) 12/20/21 18:32 Ur Leukocyte Esterase Negative (Negative) 12/20/21 18:32 Urine RBC 15-25 /hpf (0-2) H 12/20/21 18:32 Urine WBC Rare /hpf (0-5) 12/20/21 18:32 Ur Squamous Epith Cells None /hpf (0-5) 12/20/21 18:32 Amorphous Sediment Not Reportable 12/20/21 18:32 Urine Bacteria 1+ /hpf (NONE) H 12/20/21 18:32 Coronavirus 229E (PCR) Not detected (NOT DETECT) 12/20/21 15:07 Influenza Type A Ag Negative (Negative) 12/20/21 13:21 Influenza Type B Ag Negative (Negative) 12/20/21 13:21 SARS-CoV-2 (PCR) Not detected (NOT DETECT) 12/20/21 15:07 Vitals Last Vital Signs Temp 97.7 F 12/24/21 11:18 Pulse 70 12/24/21 11:18 Resp 16 12/24/21 11:18 BP 120/76 12/24/21 11:18 Pulse Ox 98 12/24/21 11:18 Discharge Plan Discharge Patient Disposition: Xfer SNF Condition: Stable Prescriptions: New levofloxacin 750 mg tablet 750 mg PO DAILY 5 Days Qty: 5 0RF Continued fentanyl 50 mcg/hr patch 72 hour 1 patch transdermal Q72H 0RF Anoro Ellipta 62.5-25 mcg/actuation blister with device 1 inh inhalation DAILY 0RF lorazepam 0.5 mg tablet 0.5 mg PO BID 0RF loratadine [Claritin] 10 mg tablet 10 mg PO DAILY 0RF Eliquis 2.5 mg tablet 2.5 mg PO BID 0RF pantoprazole [Protonix] 20 mg tablet,delayed release (DR/EC) 20 mg PO DAILY 0RF nitroglycerin [Nitrostat] 0.4 mg tablet, sublingual 0.4 mg SUBLINGUAL Q5M PRN (Reason: Chest Pain) 0RF aspirin [Adult Low Dose Aspirin] 81 mg tablet,delayed release (DR/EC) 81 mg PO DAILY 0RF albuterol sulfate 2.5 mg /3 mL (0.083 %) solution for nebulization 2.5 mg INHALATION Q4H PRN (Reason: Shortness Of Breath) 0RF acetaminophen 325 mg capsule 325 mg PO QID PRN (Reason: Pain) 0RF lactulose 10 gram/15 mL solution 10 gm PO BID 0RF ferrous sulfate 325 mg (65 mg iron) tablet 325 mg PO BID 0RF bisacodyl 5 mg tablet 5 mg PO DAILY PRN (Reason: Constipation) 0RF methimazole 5 mg tablet 7.5 mg PO DAILY 0RF atorvastatin 20 mg tablet 5 mg PO DAILY 0RF gabapentin 100 mg capsule 300 mg PO TID 0RF sennosides-docusate sodium [Senna Plus] 8.6-50 mg tablet 1 tab-cap PO DAILY 0RF calcitonin (salmon) 200 unit/actuation spray,non-aerosol 1 spray intranasal (ALT) DAILY 0RF ondansetron HCl 4 mg tablet 4 mg PO Q8H PRN (Reason: Nausea) 0RF tizanidine 2 mg capsule 2 mg PO Q8H PRN (Reason: Muscle Spasm) 0RF clobetasol 0.05 % Ointment 1 applic TOPICAL DAILY 0RF Biofreeze (menthol) 4 % Gel 1 applic TOPICAL DAILY 0RF duloxetine 60 mg Capsule, Delayed Rel Sprinkle 60 mg PO DAILY 0RF hydrocodone-acetaminophen 7.5-325 mg Tablet 1 tab PO Q8H PRN (Reason: Pain) 0RF carboxymethylcellulose sodium [Refresh Tears] 0.5 % Drops 2 drp OPHTHALMIC (EYE) BID PRN (Reason: Eye Irritation) 0RF Hemorrhoidal H Suppository 1 supp TN BID 0RF nystatin [Nyamyc] 100,000 unit/gram powder 100,000 unit TOPICAL DAILY 0RF potassium chloride 20 mEq tablet extended release 20 meq PO BID Qty: 90 3RF diltiazem HCl [Cardizem] 120 mg tablet 120 mg PO BID 30 Days Qty: 60 0RF Changed furosemide 40 mg tablet 40 mg PO BID PRN (Reason: Edema) Qty: 0 0RF Discharge Orders: Discharge Order (Routine); Ordered 12/24/21 Ordered By: Marcos Antony Referrals: [facility] [Outside] Crescencio Phillips MD [Primary Care Provider] - 4-7 days Discharge Diet: As Directed Discharge Activity: Increase activity as tolerated and As per PT/OT instructions Patient Instructions: Opioid Safety (GEN) Activity Restrictions/Additional Instructions: Continue level 1 dysphagia diet, pur?ed with nectar thick liquids. Maintain aspiration precautions. Continue speech therapy follow-up. Encourage oral intake as tolerating to avoid hypovolemia, hypernatremia. Lasix for now has been changed to as needed. Continue nasal cannula oxygen 2 L/min. Wean down as tolerating. Please recheck potassium level in 3-4 days due to mild hypokalemia. Please recheck renal function due to acute kidney injury on chronic kidney disease noted at presentation which has been improving. Avoid nephrotoxic medications. Had initial urinary retention on presentation to the hospital with difficult to pass catheter due to genital atrophy. Catheter placed by urology. Urine culture without growth. Please follow-up for any signs of recurrent urinary retention. Continue follow-up of thyroid function with continued methimazole. Please repeat TSH in 3-4 weeks. Discharge Attestations Time Spent in Discharge Care*: greater than 30 min Quality Metrics Clinical Quality Measures [ No reported AMI, CVA or VTE this stay] Coding Level of Care Code Acute Chg FW DC note Diagnoses Atrial fibrillation I48.91 Systolic heart failure I50.22 Heart failure chronicity: chronic CAD (coronary artery disease) I25.10 Coronary Disease-Associated Artery/Lesion type: [place] artery [place] vs. transplanted heart: [place] heart Associated angina: without angina Hyperlipidemia E78.49 Hyperlipidemia type: other hyperlipidemia HTN (hypertension) I10 Hypertension type: essential hypertension PVD (peripheral vascular disease) I73.9 Hyperthyroidism E05.90 Hypernatremia E87.0 Acute kidney injury superimposed on CKD N17.9; N18.9
[2021-12-24 14:38] LABS: SARS Covid-2 Antigen Negative (Negative)
--- NOTE | 2021-12-24 14:53 | PC.NURSE ---
Report called to Arpita Larose at [facility] at this time.
--- NOTE | 2021-12-24 15:29 | PC.NURSE ---
This nurse removed richey catheter per nurse protocol. 10 ml of sterile water removed from catheter bulb. Patient asked to take deep breathe in and this nurse removed richey catheter with patient's exhale. Patient tolerated well.
== END 2021-12-24 16:40 | disposition skilled nursing facility (03) | DRG 682 ==
LOC: ER 15:24 → MEDSURG 17:16
PROVIDERS: Admitting Provider Internal Medicine; Emergency Provider Family Medicine; PCP Internal Medicine; Visit Provider Internal Medicine
DX: N17.9 Acute kidney failure, unspecified (principal); G93.41 Metabolic encephalopathy; I21.A1 Myocardial infarction type 2; I50.22 Chronic systolic (congestive) heart failure; E87.0 Hyperosmolality and hypernatremia; I13.0 Hypertensive heart and chronic kidney disease with heart failure and stage 1 through stage 4 chronic kidney disease, or unspecified chronic kidney disease; I48.91 Unspecified atrial fibrillation; I25.10 Atherosclerotic heart disease of native coronary artery without angina pectoris; E05.90 Thyrotoxicosis, unspecified without thyrotoxic crisis or storm; N18.9 Chronic kidney disease, unspecified; I73.9 Peripheral vascular disease, unspecified; E87.6 Hypokalemia; Z79.82 Long term (current) use of aspirin; Z79.01 Long term (current) use of anticoagulants; E78.49 Other hyperlipidemia; J44.9 Chronic obstructive pulmonary disease, unspecified; R33.9 Retention of urine, unspecified; E86.0 Dehydration
CPT/HCPCS: 36415; 36600; 70450; 71045; 80048; 80051; 80053; 81001; 82330; 82550; 82805; 83605; 83690; 83735; 83880; 84145; 84436; 84439; 84443; 84480; 84481; 84484; 85025; 87040; 87086; 87426; 87635; 87804; 92507; 92523; 92526; 92610; 93005; 94640; 94660; 96365; 96366; 96372; 97110; 97161; 97530; 99285; J0696; J1644; J1940; J2543; J7030; J7799

== ENCOUNTER 2021-12-29 18:00 | Inpatient (IN) | payer MEDICARE, MEDICAID, SELFPAY ==
[2021-12-29] VITALS (7 sets, daily range): BP systolic 95–128; BP diastolic 63–99; PULSE 65–99; RESP 16–42; O2SAT 86–98; BMI 27.8
--- NOTE | 2021-12-29 18:05 | W.ED.SOB ---
HPI - SOB/Dyspnea General: Chief Complaint: Shortness of Breath/Dyspnea Stated Complaint: SEVERE RESPIRATORY DISTRESS Time Seen by Provider: 12/29/21 18:05 Limitations: altered mental status History of Present Illness: HPI Narrative: Ms Salgado is a 81-year-old lady with, per chart review, history of atrial fibrillation on anticoagulation, CAD, ICD, systolic heart failure, hypothyroidism, peripheral vascular disease, history of CKD with recent hospitalization for KLAUDIA on CKD who presents to the emergency department due to severe respiratory distress. Per EMS report from care home symptoms have progressed throughout the day. The patient currently is in severe respiratory distress and unable to provide meaningful history with altered mental status. EMS gave patient DuoNeb x2 and 125 mg of Solu-Medrol. Review of Systems General: Reports: ROS unobtainable due to mental status PFS ED PFSH: Medical History (Updated 01/01/22 @ 13:15 by Dutch Gaspar MD) Arteriosclerosis Atrial fibrillation CAD (coronary artery disease) Cardiomyopathy CHF (congestive heart failure) COPD (chronic obstructive pulmonary disease) Genital atrophy of female History of non-ST elevation myocardial infarction (NSTEMI) HTN (hypertension) Hyperlipidemia Hyperthyroidism Osteoarthritis PVD (peripheral vascular disease) Systolic heart failure Surgical History Previous back surgery S/P dilatation and curettage S/P hysterectomy S/P ICD (internal cardiac defibrillator) procedure S/P knee surgery S/P tubal ligation Family History Mother Diabetes Hypertension Father Family history of thyroid problem CAD (coronary artery disease) Social History Smoking and tobacco status: never smoked History of recent travel: No Physical Exam Const: GENERAL APPEARANCE: in distress and ill appearing HENMT: COMMON NORMALS: normocephalic and atraumatic HEAD & SCALP: normocephalic and atraumatic Eye: COMMON NORMALS: conjunctivae normal CONJUNCTIVA: Yes conjunctivae normal SCLERA: sclerae normal Neck/C-Spine: COMMON NORMALS: supple GENERAL: Yes trachea midline Resp: EFFORT & INSPECTION: Yes tachypneic, Yes respiratory distress and Yes uses accessory muscles AUSCULTATION: crackles, rhonchi and diminished lung sounds Cardio: COMMON NORMALS: regular rate and regular rhythm RATE: regular rate RHYTHM: regular rhythm GI: COMMON NORMALS: Soft to palpation PALPATION: Yes Soft to palpation and No Tenderness to palpation present (GI) Extremity: GENERAL: Yes normal exam except as noted and Yes edema Neuro: COMMON NORMALS: moves all extremities SENSORIUM/ORIENTATION: Yes stuporous Psych: MEMORY/COGNITION: Yes cognition grossly impaired Course ED course: - Patient was seen and evaluated by me at bedside - Patient placed on cardiac monitors, IV access obtained - Initial evaluation notable for marked ill appearance, marked respiratory distress with respiratory rate of 60 despite supplemental oxygen via nonrebreather mask at 15 L. Patient hypoxic. Mental status altered - Labs and xr personally interpreted by me. EKG at 1810 interpreted by me. No STEMI. Nonspecific ST segment abnormalities which may be due to interventricular conduction delay. - BiPAP ordered and RT to bedside. Empiric antibiotics given. Given hx of ef 30-35% small [place] of fluid with be given, full 30 cc/kg will result in significiant worsening of respiratory status in ED. - Labs notable for leukocytosis, normal hemoglobin. Metabolic panel with evidence of dehydration, mild hyperkalemia though creatinine is similar to recent baseline. Elevation in BNP and troponin. - Lasix ordered - Imaging notable for questionable bilateral atelectasis versus infiltrate, overall at baseline has marked abnormal chest x-ray - Upon serial reexamination after treatment the patient was mildly improved though patient still requiring BiPAP and tachypneic. - Discussed with family at bedside, patient is DNR/DNI - Based on patient history, evaluation, and testing as interpreted the most likely cause of the patient's condition is pneumonia with acute hypoxic resp failure secondary to severe sepsis due to pneumonia. - The results of ED evaluation were discussed with the patient including plan for admission due to requirement for level of care not available if discharged to prevent significant worsening/deterioration. - Admitting service was contacted and Dr Antony with hospitalist service agreed to admit the patient - Patient was admitted in critical condition. Note: Click bubbles or prepopulated champagne in note writing are used for assistance with data collection and billing and are inherently more limited than narrative and other text portions of this note. Please use narrative for additional clinical history and defer to narrative/free test for any case of contradictory information. If information appears in only free text or click bubble it should be considered present or absent as reported. Please contact note scientific technical writer for clarifications of clinical information or contradictory information. MDM is a brief summary, contradictory or erroneous seeming information should be clarified and full note should be reviewed. Vital Signs: Vital signs: Vital Signs Temperature 99.0 F 01/04/22 15:35 Pulse Rate 79 01/04/22 15:35 Respiratory Rate 20 H 01/04/22 15:35 Blood Pressure 131/75 01/04/22 15:35 Pulse Oximetry 94 01/04/22 15:35 MDM - SOB/Dyspnea Medical Decision Making 81 yo lady presenting with AMS and resp failure. Patient DNR/DNI. Placed and bipap and found to have severe sepsis secondary to pneumonia. Admitted for futher managment. Medical Records I reviewed the patient's medical records. Lab Data I reviewed the patient's lab results. : 01/04/22 04:56 01/04/22 16:20 Labs/Radiology: Radiology Impressions Chest X-Ray 12/29/21 18:08 IMPRESSION: 1. Marked dextroscoliosis and low lung volumes. 2. Bilateral left greater than right mid to lower lung field atelectasis versus infiltrate. 3. Large hiatal hernia suspected. 4. Pacemaker. Chest CTA 12/29/21 18:29 IMPRESSION: 1. Negative for pulmonary embolus. 2. Patchy bilateral left greater than right airspace infiltrates. 3. Left kidney nonobstructive calyceal stone. 4. Right kidney parapelvic renal cysts versus hydronephrosis incompletely visualized. 5. Pacemaker. 6. Vertebroplasty changes and several compression fractures throughout the spine without retropulsion of bony fragments. 7. Large hiatal hernia. 8. Small left pleural effusion. COMMENTS: Consistent with the [employer]'s Incidental Findings Committee white paper (J Am Va Radiol 2018): Any incidental renal lesion less than 1 cm or classified as too small to characterize, or any incidental cystic renal lesion characterized as simple-appearing, is likely benign. No follow-up imaging is recommended for these lesions per consensus recommendations based on imaging criteria. Renal Ultrasound 12/29/21 22:17 IMPRESSION: 1. Fuentes balloon catheter in the urinary bladder which somewhat obscures the bladder anatomy. 2. Questionable enlarged left renal calices which is not present on today's CTA chest. 3. Possible moderate right hydronephrosis versus UPJ stenosis with hydronephrosis versus parapelvic cyst noted on today's CTA chest but not visible on today's ultrasound. 4. CT abdomen pelvis without contrast may reveal the status of the kidneys which should have opacified collecting systems from recent CTA chest.. ADDENDUM: 12/30/21 0023 THIS REPORT CONTAINS FINDINGS THAT MAY BE CRITICAL TO PATIENT CARE. The findings were verbally communicated via telephone conference with Dr Antony at 12:21 AM CDT on 12/30/2021. The findings were acknowledged and understood. Abdomen/Pelvis CT 12/30/21 00:22 IMPRESSION: 1. Stable elevation of the left hemidiaphragm consistent with eventration. 2. Stable large intrathoracic hiatal hernia. 3. Prominent anterior and posterior right renal veins which had the appearance of hydronephrosis on images without contrast. 4. Normal renal collecting system bilaterally with no hydronephrosis. 5. Fuentes balloon catheter in the urinary bladder. Head CT 01/03/22 14:07 IMPRESSION: 1. No acute intracranial abnormality. 2. Redemonstrated mild diffuse cerebral atrophy and moderate sequela of chronic small vessel ischemic disease. Laboratory Results WBC 16.7 10^3/uL (4.0-10.0) H 12/29/21 18:19 RBC 4.09 10^6/uL (4.1-5.3) L 12/29/21 18:19 Hgb 12.3 g/dL (11.5-15.3) 12/29/21 18:19 Hct 39.4 % (37.0-47.0) 12/29/21 18:19 MCV 96.3 fl (81-99) 12/29/21 18:19 MCH 30.1 pg (28.0-34.0) 12/29/21 18:19 MCHC 31.2 g/dL (30.0-36.0) 12/29/21 18:19 RDW 15.9 % (12.1-15.1) H 12/29/21 18:19 Plt Count 368 10^3/cmm (130-400) 12/29/21 18:19 MPV 11.9 fL (7.4-10.4) H 12/29/21 18:19 Neut % (Auto) 89.2 % 12/29/21 18:19 Lymph % (Auto) 4.1 % 12/29/21 18:19 Wilkinson % (Auto) 5.9 % 12/29/21 18:19 Eos % (Auto) 0.1 % 12/29/21 18:19 Baso % (Auto) 0.2 % 12/29/21 18:19 Neut # (Auto) 14.89 10^3/uL (1.8-7.7) H 12/29/21 18:19 Lymph # (Auto) 0.7 10^3/uL (0.8-4.8) L 12/29/21 18:19 Wilkinson # (Auto) 1.0 10^3/uL (0.2-0.9) H 12/29/21 18:19 Eos # (Auto) 0.0 10^3/uL (0.0-0.8) 12/29/21 18:19 Baso # (Auto) 0.0 10^3/uL (0.0-0.1) 12/29/21 18:19 Nucleated RBC % (auto) 0.1 % 12/29/21 18:19 Nucleated RBCs # 0.0 /100WBC 12/29/21 18:19 Specimen Type Arterial 12/29/21 18:14 Sample Site Brachial, left 12/29/21 18:14 ABG pH 7.38 (7.35-7.45) 12/29/21 18:14 ABG pCO2 36.4 mmHg (35-45) 12/29/21 18:14 ABG pO2 85.9 mmHg (80.0-100.0) 12/29/21 18:14 ABG HCO3 21.4 mmol/L (22-26) L 12/29/21 18:14 ABG Base Excess -3.3 mmol/L (-2.0-2.0) L 12/29/21 18:14 Dieudonne Test N/a 12/29/21 18:14 Hematocrit 38.0 % (37-47) 12/29/21 18:14 Hgb O2 Saturation 95.7 % (95-100) 12/29/21 18:14 Carboxyhemoglobin 1.1 %THgb (0.4-20.1) 12/29/21 18:14 Methemoglobin 0.6 % (0.4-1.5) 12/29/21 18:14 Total Hemoglobin 12.4 g/dL (12-16) 12/29/21 18:14 O2 Delivery Device Bipap 12/29/21 18:14 FiO2 80.0 % 12/29/21 18:14 Validation Intern ID Ed 12/29/21 18:14 Sodium 132 mmol/L (136-145) L 12/29/21 18:19 Potassium 5.3 mmol/L (3.5-5.1) H 12/29/21 18:19 Chloride 97 mmol/L (98-107) L 12/29/21 18:19 Carbon Dioxide 20 mmol/L (22-29) L 12/29/21 18:19 Anion Gap 20.3 (5-19) H 12/29/21 18:19 BUN 40 mg/dL (8-23) H 12/29/21 18:19 Creatinine 1.5 mg/dL (0.5-0.9) H 12/29/21 18:19 GFR Calculation Not Reportable 12/29/21 18:19 Glucose 139 mg/dL (65-115) H 12/29/21 18:19 POC Glucose 136 mg/dL (70-110) H 12/29/21 18:23 Calculated Osmolality 286 mOsm/kg (285-295) 12/29/21 18:19 Lactic Acid 2.9 mmol/L (0.5-2.2) H 12/29/21 18:19 Lactic Acid (Sepsis) 2.2 mmol/L (0.5-2.2) 12/29/21 20:52 Calcium 9.8 mg/dL (8.5-10.5) 12/29/21 18:19 Total Bilirubin 0.6 mg/dL (0.15-1.2) 12/29/21 18:19 AST 18 U/L (0-32) 12/29/21 18:19 ALT 12 U/L (0-33) 12/29/21 18:19 Alkaline Phosphatase 71 IU/L (35-105) 12/29/21 18:19 Troponin T Baseline 105 ng/L (0-10) H* 12/29/21 18:19 Troponin T 120 Minute 92.69 ng/L (0-10) H 12/29/21 20:52 Delta Troponin T -12.31 ABS# (0-10) L 12/29/21 20:52 NT-Pro-B Natriuret Pep 5574 pg/mL (0-450) H 12/29/21 18:19 Total Protein 7.5 g/dL (6.6-8.7) 12/29/21 18:19 Albumin 3.3 g/dL (3.5-5.2) L 12/29/21 18:19 Globulin 4.2 g/dL (1.3-4.6) 12/29/21 18:19 Urine Color Yellow (Yellow) 12/29/21 22:05 Urine Appearance Hazy (CLEAR) A 12/29/21 22:05 Urine pH 5 (5-7) 12/29/21 22:05 Ur Specific Odell 1.015 (1.005-1.030) 12/29/21 22:05 Urine Protein Neg (Negative) 12/29/21 22:05 Urine Glucose (UA) Norm (Normal) 12/29/21 22:05 Urine Ketones Negative (Negative) 12/29/21 22:05 Urine Blood Neg (Negative) 12/29/21 22:05 Urine Nitrate Negative (Negative) 12/29/21 22:05 Urine Bilirubin Neg (Negative) 12/29/21 22:05 Urine Urobilinogen Norm mg/dL (Negative) 12/29/21 22:05 Ur Leukocyte Esterase Trace (Negative) H 12/29/21 22:05 Urine RBC 0-4 /hpf (0-2) H 12/29/21 22:05 Urine WBC 25-40 /hpf (0-5) H 12/29/21 22:05 Ur Squamous Epith Cells 0-4 /hpf (0-5) H 12/29/21 22:05 Amorphous Sediment Not Reportable 12/29/21 22:05 Urine Bacteria None /hpf (NONE) 12/29/21 22:05 Urine Yeast 1+ /hpf H 12/29/21 22:05 Coronavirus 229E (PCR) Not detected (NOT DETECT) 12/29/21 18:36 SARS-CoV-2 (PCR) Not detected (NOT DETECT) 12/29/21 18:36 Critical Care Time Critical Care Time: Critical Care Time: Yes Total Critical Care Time: 55 Attestation: Due to a high probability of clinically significant, possibly life threatening deterioration, the patient required my highest level of attention and preparedness to intervene emergently and I personally spent this critical care time directly and personally managing the patient. This critical care time included obtaining a history; examining the patient; pulse oximetry; ordering and review of laboratory and imaging studies; arranging urgent treatment with development of a management plan; evaluation of patient's response to treatment; frequent reassessment; and, discussions with other providers as applicable. It was exclusive of separately billable procedures. Primary system involved is respiratory Discharge Plan Discharge Patient Disposition: Admitted As Inpatient Admit Provider: Marcos Antony Clinical Impression: Community acquired pneumonia, Severe sepsis, Altered mental status, Acute respiratory failure with hypoxia Condition: Stable Coding Level of Care Code ED Senior Web Designer for Ajay Fwdilip Exam Comprehensive
--- NOTE | 2021-12-29 18:08 | ECG_ITS ---
[facility] Test Date: 2021-12-29 Pat Name: Kizzy Salgado Department: Room: Gender: Female Captain/Airline Pilot: : 1940 Requested By: Pedro Gutiérrez Order Number: [id number] Kayla MD: Knau Alicea M.D. Measurements Intervals [place] Rate: 82 P: HI: QRS: 173 QRSD: 124 T: -21 QT: 323 QTc: 378 Interpretive Statements ATRIAL FIBRILLATION WITH ABERRANT CONDUCTION OR VENTRICULAR PREMATURE COMPLEXES RIGHT VENTRICULAR HYPERTROPHY [SOME/ALL OF: PROMINENT R IN V1, LATE TRANSITION, RAD, NORI, SSS] Diffuse nonspecific T wave changes. Further interpretation not possible because of the baseline artifact Electronically Signed On 12-31-2021 10:46:13 CDT by Kanu Alicea M.D. [email or web address] medical [email or web address] ferry [email or web address]/[id number] f
--- NOTE | 2021-12-29 18:08 | XRR_ITS ---
PROCEDURE INFORMATION: Exam: XR Chest Exam date and time: 12/29/2021 6:24 PM Age: 81 years old Clinical indication: Shortness of breath; Additional info: SOB TECHNIQUE: Imaging protocol: XR of the chest. Views: 1 view. COMPARISON: CR XR chest 1V portable [id number] 12/21/2021 2:55 PM FINDINGS: Tubes, catheters and devices: Pacemaker. Lungs: Bilateral left greater than right mid to lower lung field atelectasis versus infiltrate. Pleural spaces: Unremarkable. No pleural effusion. No pneumothorax. Heart/Mediastinum: Large hiatal hernia suspected. Bones/joints: Marked dextroscoliosis and low lung volumes. XR/XR chest 1V portable [id number] IMPRESSION: 1. Marked dextroscoliosis and low lung volumes. 2. Bilateral left greater than right mid to lower lung field atelectasis versus infiltrate. 3. Large hiatal hernia suspected. 4. Pacemaker.
[2021-12-29 18:24] LABS: ABG PCO2 36.4 mmHg (35-45); ABG PH Result 7.38 (7.35-7.45); Base Excess ABG -3.3 mmol/L (-2.0-2.0); Blood Gas Sample Type Arterial; Carboxyhemoglobin 1.1 %THgb (0.4-20.1); HCO3 ABG 21.4 mmol/L (22-26); HGB O2 Sat 95.7 % (95-100); Methemoglobin 0.6 % (0.4-1.5); PO2 ABG 85.9 mmHg (80.0-100.0); Total Hemoglobin 12.4 g/dL (12-16)
[2021-12-29 18:25] LABS: Blood Gas Operator Identificat ED; Blood Gas Sample Site Brachial, left; Oxygen Device BIPAP
[2021-12-29 18:25] LABS: Glucose Point of Care 136 mg/dL (70-110)
[2021-12-29 18:29] LABS: Basophils % 0.2 %; Eosinophils % 0.1 %; Hematocrit 39.4 % (37.0-47.0); Hemoglobin 12.3 g/dL (11.5-15.3); Lymphocytes # 0.7 10^3/uL (0.8-4.8); Lymphocytes % 4.1 %; Mean Corpuscular HGB Conc 31.2 g/dL (30.0-36.0); Mean Corpuscular Hemoglobin 30.1 pg (28.0-34.0); Mean Corpuscular Volume 96.3 fl (81-99); Mean Platelet Volume 11.9 fL (7.4-10.4); Monocytes % 5.9 %; Neutrophils # 14.89 10^3/uL (1.8-7.7); Neutrophils % 89.2 %; Nucleated Red Blood Cells % 0.1 %; Platelet Count 368 10^3/cmm (130-400); Red Blood Count 4.09 10^6/uL (4.1-5.3); Red Cell Distribution Width 15.9 % (12.1-15.1); White Blood Count 16.7 10^3/uL (4.0-10.0)
--- NOTE | 2021-12-29 18:29 | CTR_ITS ---
PROCEDURE INFORMATION: Exam: CTA Chest With Contrast Exam date and time: 12/29/2021 8:11 PM Age: 81 years old Clinical indication: Shortness of breath; Patient HX: Severe respiratory distress; Additional info: Respiratory distress, severe TECHNIQUE: Imaging protocol: Computed tomographic angiography of the chest with contrast. 3D rendering (Not supervised by radiologist): MIP and/or 3D reconstructed images were created by the technologist. Radiation optimization: All CT scans at this facility use at least one of these dose optimization techniques: automated exposure control; mA and/or kV adjustment per patient size (includes targeted exams where dose is matched to clinical indication); or iterative reconstruction. Contrast material: VISIPAQUE 320; Contrast volume: 95 ml; Contrast route: INTRAVENOUS (IV); COMPARISON: CTA Chest-Pulmonary Emb [id number] 01/05/2017 3:28 PM RADIATION DOSE METRICS: Total DLP (mGy-cm): 468.61 FINDINGS: Tubes, catheters and devices: Pacemaker. Pulmonary arteries: Normal. No pulmonary emboli. Aorta: Unremarkable. No aortic aneurysm. No aortic dissection. Lungs: Patchy bilateral left greater than right airspace infiltrates. Pleural spaces: Small left pleural effusion. Heart: Unremarkable. No cardiomegaly. No pericardial effusion. Lymph nodes: Unremarkable. No enlarged lymph nodes. Diaphragm: Large hiatal hernia. Kidneys and ureters: Left kidney nonobstructive calyceal stone. Right kidney parapelvic renal cysts versus hydronephrosis incompletely visualized. Bones/joints: Vertebroplasty changes and several compression fractures throughout the spine without retropulsion of bony fragments. Soft tissues: Unremarkable. CT/CT angio chest PE protcl [id number] IMPRESSION: 1. Negative for pulmonary embolus. 2. Patchy bilateral left greater than right airspace infiltrates. 3. Left kidney nonobstructive calyceal stone. 4. Right kidney parapelvic renal cysts versus hydronephrosis incompletely visualized. 5. Pacemaker. 6. Vertebroplasty changes and several compression fractures throughout the spine without retropulsion of bony fragments. 7. Large hiatal hernia. 8. Small left pleural effusion. COMMENTS: Consistent with the [employer]'s Incidental Findings Committee white paper (J Am Va Radiol 2018): Any incidental renal lesion less than 1 cm or classified as too small to characterize, or any incidental cystic renal lesion characterized as simple-appearing, is likely benign. No follow-up imaging is recommended for these lesions per consensus recommendations based on imaging criteria.
--- NOTE | 2021-12-29 18:29 | CTR_ITS ---
PROCEDURE INFORMATION: Exam: CT Head Without Contrast Exam date and time: 12/29/2021 8:08 PM Age: 81 years old Clinical indication: Altered mental status/memory loss; Patient HX: AMS TECHNIQUE: Imaging protocol: Computed tomography of the head without contrast. Radiation optimization: All CT scans at this facility use at least one of these dose optimization techniques: automated exposure control; mA and/or kV adjustment per patient size (includes targeted exams where dose is matched to clinical indication); or iterative reconstruction. COMPARISON: CT head wo con* [id number] 12/20/2021 3:16 PM RADIATION DOSE METRICS: Total DLP (mGy-cm): 1004.16 FINDINGS: Brain: Moderate diffuse white matter disease likely reflecting chronic microvascular ischemic changes. Cerebral ventricles: No ventriculomegaly. Paranasal sinuses: Visualized sinuses are unremarkable. No fluid levels. Mastoid air cells: Visualized mastoid air cells are well aerated. Bones/joints: Unremarkable. No acute fracture. Soft tissues: Unremarkable. CT/CT head wo con* [id number] IMPRESSION: Negative for intracranial hemorrhage or mass effect.
[2021-12-29 18:57] LABS: Lactic Sepsis W/Reflex 2.9 mmol/L (0.5-2.2)
[2021-12-29 19:02] LABS: Alanine Aminotransferase 12 U/L (0-33); Albumin Level 3.3 g/dL (3.5-5.2); Alkaline Phosphatase 71 IU/L (35-105); Anion Gap 20.3 (5-19); Aspartate Amino Transferase 18 U/L (0-32); Blood Urea Nitrogen 40 mg/dL (8-23); Calcium 9.8 mg/dL (8.5-10.5); Carbon Dioxide 20 mmol/L (22-29); Chloride 97 mmol/L (98-107); Globulin 4.2 g/dL (1.3-4.6); Glucose 139 mg/dL (65-115); NT Pro B Type Natriuretic Pept 5574 pg/mL (0-450); Osmolality Calculated 286 mOsm/kg (285-295); Potassium 5.3 mmol/L (3.5-5.1); Sodium 132 mmol/L (136-145); Total Bilirubin 0.6 mg/dL (0.15-1.2); Total Protein 7.5 g/dL (6.6-8.7)
[2021-12-29 19:03] LABS: Troponin(5th) Baseline 105 ng/L (0-10)
[2021-12-29] MEDS: cefepime 2,000 MG in sodium chloride 0.9% (plus) 50 ML 100 MG IV (19:13)
[2021-12-29] MEDS: FUROsemide 10 mg/mL SDV 4mL 40 MG IVP (19:14)
--- NOTE | 2021-12-29 19:19 | PC.NURSE ---
Report given to Nhan MARTINEZ.
--- NOTE | 2021-12-29 20:08 | ECG_ITS ---
[facility] Test Date: 2021-12-30 Pat Name: Kizzy Salgado Department: Room: [facility] Gender: Female Extension Associate: : 1940 Requested By: Pedro Gutiérrez Order Number: [id number] Kayla MD: Kanu Alicea M.D. Measurements Intervals [place] Rate: 68 P: AL: QRS: 39 QRSD: 134 T: -33 QT: 415 QTc: 443 Interpretive Statements Atrial fibrillation with demand V pacing. INDETERMINATE AXIS RIGHT BUNDLE BRANCH BLOCK [120+ ms QRS DURATION, UPRIGHT V1, 40+ ms S IN I/aVL/V4/V5/V6] Diffuse nonspecific ST-T changes compared to ECG 12/30/2021 01:05:34 No significant changes Electronically Signed On 12-31-2021 13:49:52 CDT by Kanu Alicea M.D. [email or web address] and TechnologyZenPayrollcleveland clinic south pointe hospital.[employer]/store/[id number]
[2021-12-29] MEDS: iodixanol 320 mg/mL 100mL Btl IV (20:10)
[2021-12-29 20:13] LABS: Reflex Lactate Order REFLEX LACTIC ORDERD
[2021-12-29 20:36] LABS: Adenovirus Not Detected (NOT DETECT); Chlamydia Pneumoniae Not Detected (NOT DETECT); Coronavirus 229E,HKU1,NL63,OC4 Not Detected (NOT DETECT); Human Metapneumovirus Not Detected (NOT DETECT); Human Rhinovirus/Enterovirus Not Detected (NOT DETECT); Influenza A Not Detected (NOT DETECT); Influenza A H1 Not Detected (NOT DETECT); Influenza A H1-2009 Not Detected (NOT DETECT); Influenza A H3 Not Detected (NOT DETECT); Influenza B Not Detected (NOT DETECT); Mycoplasma Pneumoniae Not Detected (NOT DETECT); Parainfluenza Virus Type 1 Not Detected (NOT DETECT); Parainfluenza Virus Type 2 Not Detected (NOT DETECT); Parainfluenza Virus Type 3 Not Detected (NOT DETECT); Parainfluenza Virus Type 4 Not Detected (NOT DETECT); Respiratory Syncytial Virus A Not Detected (NOT DETECT); Respiratory Syncytial Virus B Not Detected (NOT DETECT); SARS-COV-2 Not Detected (NOT DETECT)
[2021-12-29] MEDS: vancomycin 1,250 MG/250 ML PIGGYBACK 250 MG IV (20:58)
[2021-12-29 21:28] LABS: Troponin 5 2HR 92.69 ng/L (0-10)
[2021-12-29 21:29] LABS: Troponin 5 2HR Delta -12.31 ABS# (0-10)
[2021-12-29 21:30] LABS: Lactic Acid level (Lactate) 2.2 mmol/L (0.5-2.2)
--- NOTE | 2021-12-29 22:17 | USR_ITS ---
PROCEDURE INFORMATION: Exam: US Retroperitoneal; Complete; Kidneys and Bladder Exam date and time: 12/29/2021 10:49 PM Age: 81 years old Clinical indication: Abnormal findings; Abnormal radiologic finding of the abdomen; Radiologic exam and body structure: CT showed possible hydronephrosis; Additional info: [place] on CT, eval obstruction TECHNIQUE: Imaging protocol: Real-time ultrasound of the retroperitoneum with image documentation. Complete exam focused on the kidneys and bladder. COMPARISON: US Renal Kidney Structu* [id number] 02/11/2019 2:19 PM FINDINGS: Right kidney: 9.4 x 3.3 x 3.3 cm right kidney with 0.6 cm right renal cortex. Possible moderate right hydronephrosis versus UPJ stenosis with hydronephrosis versus parapelvic cyst noted on today's CTA chest but not visible on today's ultrasound. Left kidney: 9.6 x 5.0 x 4.4 cm left kidney with 1.0 cm left renal cortex. Questionable enlarged left renal calices which is not present on today's CTA chest. Urinary bladder: Fuentes balloon catheter in the urinary bladder which somewhat obscures the bladder anatomy. Other findings: CT abdomen pelvis without contrast may reveal the status of the kidneys which should have opacified collecting systems from recent CTA chest.. US/US renal BI* [id number] IMPRESSION: 1. Fuentes balloon catheter in the urinary bladder which somewhat obscures the bladder anatomy. 2. Questionable enlarged left renal calices which is not present on today's CTA chest. 3. Possible moderate right hydronephrosis versus UPJ stenosis with hydronephrosis versus parapelvic cyst noted on today's CTA chest but not visible on today's ultrasound. 4. CT abdomen pelvis without contrast may reveal the status of the kidneys which should have opacified collecting systems from recent CTA chest..
--- NOTE | 2021-12-29 23:12 | P.HP_ITS ---
Providers/Chief Complaint Primary Care Provider: Crescencio Phillips MD Chief Complaint: SEVERE RESPIRATORY DISTRESS History of Present Illness He is [id number] lady [place] [facility] resident at [facility] recently discharged from the hospital on 12/24 after assessment management of sepsis, with change in mental status, recent fall, UTI, initially urinary tension on presentation, also noted dysphagia, pneumonia, as well as KLAUDIA on presentation. She has underlying cardiomyopathy with systolic congestive heart failure, EF 30%, A. fib, CAD, status post ICD, HTN, hypothyroidism, PAD. She is brought from [place] [facility] for evaluation after dyspnea, hypoxia, initially on presentation saturating 80-83% on 15 L nonrebreather. Her daughter reports she has been on and off, sometimes doing well, other times with some transient changes in mental status, like she states day before yesterday when her brother was visiting her. She apparently did well yesterday, and this morning was being visited by her friend and was awake, alert, interactive, without any complaints until later in the day developing shortness of breath. Daughter notes that recently due to concerns of ongoing aspiration in addition to dysphagia diet and number of her medications were being pared down at the [place]. Overall not doing that well at [facility], has been total assist. With functional decline. Daytime sleeping. Continuing 2 L nasal cannula oxygen, previously in which she was only as needed. Reported with possible aspiation last night, although no fever. Due to aspiration concerns recent medication changes were made with the followin g medications stopped yesterday: potassium, tizanidine, ferrous sulfate, calcitonin, Anoro Ellipta, atorvastatin, Protonix, gabapentin, claritin. In ER due to respiratory distress she is started on BiPAP. CTA was obtained, which did not show PE, with BL patchy in infiltrates, left greater than right. Incidentally noted left kidney nonobstructive calyceal stone. Right kidney parapelvic renal cysts versus hydronephrosis incompletely visualized. Pacemaker. Vertebroplasty and several compression fractures throughout the spine without retropulsion of bony fragments. Large hiatal hernia. Small left pleural effusion. She was given cefepime, vancomycin. IV Lasix 40 mg. No difficulties with Fuentes catheter placement this time. She is generally weak, somnolent, opens eyes, nods answers some questions, but I am not sure that answers are reliable. Unable to provide history or ROS. History and ROS obtained from ER staff, family at bedside, [facility] [facility]. During my visit we were able to gradually continue decreasing FiO2 on BiPAP from 70%, and continues saturating 95-96% on 50% FiO2 at the moment. CODE STATUS is DNR/DNI as per discussion with daughter, but is okay for BiPAP support, ICU admission, medical management. Head CT negative for acute changes. WBC count 16.7, ABG 7.38/36.4/85.9 on 80% FiO2 on BiPAP. Sodium 132, potassium 5.3, anion gap 20.3, bicarb 20. Lactic acid 2.9. BUN 40. Creatinine 1.5. Baseline troponin I 05, 2-hour troponin 92.6 9. NT proBNP 5574, lower compared to recent 10,942 on 12/22. EKG with atrial fibrillation with aberrant conduction or PVCs. COVID-19 PCR negative. Review of Systems General: Reports: ROS unobtainable due to medical condition and ROS unobtainable due to mental status Medications/Allergies Home Medications Medication Instructions Recorded Confirmed Last Taken Type acetaminophen 325 mg capsule 325 mg PO QID PRN 12/09/19 12/29/21 Unknown History albuterol sulfate 2.5 mg INHALATION Q4H PRN 12/09/19 12/29/21 Unknown History apixaban 2.5 mg tablet (Eliquis) 2.5 mg PO BID 12/09/19 12/29/21 12/19/21 History aspirin 81 mg tablet,delayed 81 mg PO DAILY 12/09/19 12/29/21 12/19/21 History release (Adult Low Dose Aspirin) bisacodyl 5 mg tablet 10 mg PO DAILY PRN 12/09/19 12/29/21 Unknown History lactulose 10 gram/15 mL oral 10 gm PO BID 12/09/19 12/29/21 12/19/21 History solution methimazole 5 mg tablet 7.5 mg PO DAILY 12/09/19 12/29/21 12/19/21 History nitroglycerin 0.4 mg sublingual 0.4 mg SUBLINGUAL Q5M PRN 12/09/19 12/29/21 Unknown History tablet (Nitrostat) fentanyl 50 mcg/hr transdermal 1 patch TRANSDERMAL Q72H 02/17/21 12/29/21 Unknown History patch lorazepam 0.5 mg tablet 0.5 mg PO BID 02/17/21 12/29/21 12/29/21 History ondansetron HCl 4 mg tablet 4 mg PO Q6H PRN 08/23/21 12/29/21 Unknown History sennosides 8.6 mg-docusate sodium 1 tab-cap PO DAILY 08/23/21 12/29/21 Unknown History 50 mg tablet (Senna Plus) carboxymethylcellulose sodium 0.5 2 drp OPHTHALMIC (EYE) Q4H PRN 12/09/21 12/29/21 Unknown History % eye drops (Refresh Tears) clobetasol 0.05 % topical ointment 1 applic TOPICAL DAILY 12/09/21 12/29/21 12/17/21 History cocoa butter-shark liver oil 1 supp [place] BID PRN 12/09/21 12/29/21 Unknown History rectal suppository (Hemorrhoidal H) duloxetine 60 mg capsule,delayed 60 mg PO DAILY 12/09/21 12/29/21 12/19/21 History release sprinkle hydrocodone 7.5 mg-acetaminophen 1 tab PO Q8H PRN 12/09/21 12/29/21 12/29/21 15:43 History 325 mg tablet menthol 4 % topical gel (Biofreeze 1 applic TOPICAL DAILY 12/09/21 12/29/21 Unknown History (menthol)) nystatin 100,000 unit/gram topical 100,000 unit TOPICAL DAILY 12/09/21 12/29/21 12/19/21 History powder (Nyamyc) diltiazem HCl 120 mg tablet 120 mg PO BID 30 Days #60 tab 12/11/21 12/29/21 12/19/21 Rx (Cardizem) furosemide 40 mg tablet 40 mg PO BID PRN #0 tab 12/24/21 12/29/21 12/19/21 Rx levofloxacin 750 mg tablet 750 mg PO DAILY 12/29/21 12/29/21 Unknown History Allergies Allergy/AdvReac Type Severity Reaction Status Date / Time No Known Allergies Allergy Verified 12/20/21 13:49 PFSH Acute PFSH: Medical History (Updated 12/29/21 @ 23:35 by Marcos Antony MD) Arteriosclerosis Atrial fibrillation CAD (coronary artery disease) Cardiomyopathy CHF (congestive heart failure) COPD (chronic obstructive pulmonary disease) Genital atrophy of female History of non-ST elevation myocardial infarction (NSTEMI) HTN (hypertension) Hyperlipidemia Hyperthyroidism Osteoarthritis PVD (peripheral vascular disease) Systolic heart failure Surgical History Previous back surgery S/P dilatation and curettage S/P hysterectomy S/P ICD (internal cardiac defibrillator) procedure S/P knee surgery S/P tubal ligation Family History Mother Diabetes Hypertension Father Family history of thyroid problem CAD (coronary artery disease) Social History Smoking and tobacco status: never smoked History of recent travel: No Vitals/I&O/Wt Last Vital Signs Pulse 68 12/29/21 22:23 Resp 16 12/29/21 22:23 BP 118/82 12/29/21 22:23 Pulse Ox 95 12/29/21 22:23 12/29/21 12/29/21 12/30/21 14:59 22:59 06:59 Intake Total 50 / 50 Balance 50 / 50 Weight last 48 hrs Weight 60.328 kg Physical Exam Const: COMMON NORMALS: alert GENERAL APPEARANCE: cooperative and frail appearing ORIENTATION/CONSCIOUSNESS: Yes awake HENMT: COMMON NORMALS: normocephalic, EAC's normal, Normal external nose present and moist oral mucous membranes HEAD & SCALP: normocephalic NOSE: Normal external nose present EXTERNAL AUDITORY CANAL: EAC's normal OTHER: BiPAP Neck/C-Spine: COMMON NORMALS: no meningeal signs GENERAL: Yes JVD Chest: CHEST: Yes Symmetrical chest wall rise Resp: COMMON NORMALS: clear to auscultation bilaterally AUSCULTATION: clear to auscultation bilaterally Cardio: COMMON NORMALS: regular rate, regular rhythm and No murmurs present (Cardio) RATE: regular rate RHYTHM: regular rhythm GI: COMMON NORMALS: Normal to inspection, nondistended, normoactive bowel sounds present, Soft to palpation and non-tender PALPATION: Yes Soft to palpation Extremity: GENERAL: Yes edema (Trace if any) Neuro: COMMON NORMALS: moves all extremities SENSORIUM/ORIENTATION: Yes alert MENINGEAL SIGNS: Yes no meningeal signs Psych: COMMON NORMALS: mental status grossly normal Skin: COMMON NORMALS: no wounds RASHES: no rashes Urinary Catheter Management: Fuentes: Cath Placed During This Visit: yes Urinary Catheter Date of Insertion: 12/29/21 Data : 12/29/21 18:19 12/29/21 18:19 Micro: Microbiology 12/29/21 18:20 Blood Culture - Preliminary Blood SPECIMEN COLLECTED 12/29/21 18:19 Blood Culture - Preliminary Blood SPECIMEN COLLECTED A&P Assessment and plan (1) Acute respiratory failure with hypoxia: Acute hypoxic respite failure requiring nonrebreather 15 L, subsequently BiPAP support 80% initially FiO2. Was able to turn down to 50% FiO2, continued to monitor, wean down as tolerating. Multifocal infiltrates, left greater than right on CTA. With concerns for recent aspiration. Continue to biotic coverage for possible pneumonia. Possibility of additional pulmonary edema secondary to CHF not excluded given low EF. Hold off additional IV fluids at this time. BiPAP support. Received 40 mg IV Lasix. Monitor and reassess volume status. For now will not start standing Lasix, would reassess and resume depending on how she is clinically in the morning. N.p.o. for now. Status: Acute (2) Pneumonia: Blood cultures collected, in addition we will request urine bacterial antigens. COVID-19 is negative. Continue cefepime, vancomycin. With concern for aspiration event night before yesterday, speech therapy reassessment once able to weaned off BiPAP. Status: Acute (3) Systolic heart failure: With noted EF 30-35% noted on 12/09. With elevated troponin, A. fib with aberrant conduction. History of CAD. Benefit from additional assessment with stress test once oxy genation is doing better. Status: Acute Qualifiers: Heart failure chronicity: chronic Qualified Code(s): I50.22 - Chronic systolic (congestive) heart failure (4) NSTEMI (non-ST elevated myocardial infarction): Troponin level elevated, baseline 105, 2-hour 92.69. Suspect type II KS in setting of acute hypoxic respiratory failure. However, given low EF, history of CAD, A. fib with aberrant conduction as well, consideration may be given to additional assessment with stress testing once her condition is more optimized. Status: Acute (5) Acute kidney injury superimposed on CKD: Creatinine 1.5. Baseline appears around 1.1-1.3, although with recent f luctuation. Status: Acute (6) Altered mental status: Possible acute metabolic encephalopathy secondary to hypoxic respiratory failur e. She is generally weak, somewhat somnolent currently, suspect secondary to acute hypoxic respiratory failure. Reported to have some on and off mental status changes recently. Day before yesterday reportedly was not responding well. Today daughter states had a visitor and that she was interacting and in good spirits prior to the progressive worsening shortness of breath. Continue support oxygenation. She did have a number of medications changed recently as well with potassium, tizanidine, ferrous sulfate, calcitonin, Anoro Ellipta, atorvastatin, Protonix, gabapentin, claritin stopped yesterday. For now continuing fentanyl patch, but please reassess mental status. Status: Acute (7) Hyperkalemia: Potassium supplements were stopped yesterday. Low potassium diet. Recheck level. Status: Acute (8) Abnormal finding of kidney: Noted right kidney parapelvic renal cyst versus hydronephrosis. Kidney ultrasound requested, pending. Status: Acute Plan Recent medication changes: potassium, tizanidine, ferrous sulfate, calcitonin, Anoro Ellipta, atorvastatin, Protonix, gabapentin, claritin were stopped yesterday. Dysphagia: Recently on dysphagia diet and thickened liquids. Reassess with speech therapy. Recent urinary retention, Fuentes catheter had to be placed by urology during prior admission, no issues with catheter placement today in ER. Large hiatal hernia History of CAD A. fib on chronic anticoagulation COPD HTN HLD Hyperthyroidism on methimazole PVD Multiple compression fractures, history of vertebroplasty Pacemaker Recent functional decline since last hospitalization. Reassess with PT, OT once she is more stable. Attestations Medical Necessity Statement*: Admission of 2 midnights is anticipated for assessment of management of hypoxic respite failure, pneumonia, systolic CHF with low EF, and additional committees as above. Coding Level of Care Code Acute Lead Clinical Research Coordinator for g Fwd Exam Comprehensive Diagnoses Pneumonia J18.9 Systolic heart failure I50.22 Heart failure chronicity: chronic NSTEMI (non-ST elevated myocardial infarction) I21.4 Acute kidney injury superimposed on CKD N17.9; N18.9 Acute respiratory failure with hypoxia J96.01 Altered mental status R41.82 Hyperkalemia E87.5 Abnormal finding of kidney R39.9
[2021-12-30] VITALS (38 sets, daily range): BP systolic 99–160; BP diastolic 59–88; PULSE 52–144; RESP 16–32; TEMP 36.1–38.2; O2SAT 87–97
--- NOTE | 2021-12-30 00:08 | ECG_ITS ---
[facility] Test Date: 2021-12-30 Pat Name: Kizzy Salgado Department: Room: [facility] Gender: Female [employer]: : 1940 Requested By: Pedro Gutiérrez Order Number: [id number] Kayla MD: Kanu Alicea M.D. Measurements Intervals Golden Rate: 73 P: -50 VA: 118 QRS: 109 QRSD: 124 T: -56 QT: 390 QTc: 430 Interpretive Statements Atrial fibrillation with a demand V paced rhythm INDETERMINATE AXIS RIGHT BUNDLE BRANCH BLOCK [120+ ms QRS DURATION, UPRIGHT V1, 40+ ms S IN I/aVL/V4/V5/V6] Nonspecific ST-T changes Compared to ECG 12/29/2021 18:10:12 Indeterminate axis now present Right bundle-branch block now present Ventricular premature complex(es) no longer present Aberrant conduction of supraventricular beat(s) no longer present Right ventricular hypertrophy no longer present Atrial abnormality no longer present. Myocardial infarct finding still present Electronically Signed On 12-31-2021 13:48:03 CDT by Kanu Alicea M.D. [id number]
[2021-12-30] MEDS: sodium chloride 0.9% 500 ML 999 ML IV (00:21)
--- NOTE | 2021-12-30 00:22 | CTR_ITS ---
PROCEDURE INFORMATION: Exam: CT Abdomen And Pelvis Without Contrast Exam date and time: 12/30/2021 2:27 AM Age: 81 years old Clinical indication: Other: Hydronephrosis; Prior surgery; Surgery type: Hysterectomy. Hip. Kyphoplasty. ; Patient HX: Possible hydro seen on US. ; Additional info: Possible hydronephrosis TECHNIQUE: Imaging protocol: Computed tomography of the abdomen and pelvis without contrast. Radiation optimization: All CT scans at this facility use at least one of these dose optimization techniques: automated exposure control; mA and/or kV adjustment per patient size (includes targeted exams where dose is matched to clinical indication); or iterative reconstruction. COMPARISON: CT Chest/Abdomen/Pelvis w IV* 07/07/2017 11:09 AM RADIATION DOSE METRICS: Total DLP (mGy-cm): 755.45 FINDINGS: Diaphragm: Stable elevation of the left hemidiaphragm consistent with eventration. Stable large intrathoracic hiatal hernia. Liver: Normal. No mass. Gallbladder and bile ducts: Normal. No calcified stones. No ductal dilation. Pancreas: Normal. No ductal dilation. Spleen: Calcified splenic granulomas. Adrenal glands: Normal. No mass. Kidneys and ureters: Prominent anterior and posterior right renal veins which had the appearance of hydronephrosis on images without contrast. Normal collecting system bilaterally with no hydronephrosis. Stomach and bowel: Unremarkable. No obstruction. No mucosal thickening. Appendix: No evidence of appendicitis. Intraperitoneal space: Unremarkable. No free air. No significant fluid collection. Vasculature: See Kidneys and ureters finding. Lymph nodes: Unremarkable. No enlarged lymph nodes. Urinary bladder: Fuentes balloon catheter in the urinary bladder. Reproductive: Unremarkable as visualized. Bones/joints: Multiple vertebroplasties in the thoracolumbar spine. Levoscoliosis. Soft tissues: Unremarkable. CT/CT kidney stone [id number] IMPRESSION: 1. Stable elevation of the left hemidiaphragm consistent with eventration. 2. Stable large intrathoracic hiatal hernia. 3. Prominent anterior and posterior right renal veins which had the appearance of hydronephrosis on images without contrast. 4. Normal renal collecting system bilaterally with no hydronephrosis. 5. Fuentes balloon catheter in the urinary bladder.
[2021-12-30 00:56] LABS: Troponin 5 6HR 77.41 ng/L (0-10)
[2021-12-30 01:44] LABS: Add Urine Culture? Yes; Add Urine Microscopic? YES; Bilirubin Urine Neg (Negative); Blood Urine Neg (Negative); Glucose Urine UA Norm (Normal); Ketones Urine Negative (Negative); Leukocyte Esterase Urine Trace (Negative); Nitrate Urine Negative (Negative); Other Sediment, Urine BUD YEAST W/HYPHAE; Protein Urine Neg (Negative); RBC Urine 0-4 /hpf (0-2); Specific Gravity, Urine 1.015 (1.005-1.030); Squamous Epithelial Cell Urine 0-4 /hpf (0-5); Urine Appearance Hazy (CLEAR); Urine Color Yellow (Yellow); Urobilinogen Urine Norm (Negative); WBC Urine 25-40 /hpf (0-5); pH Urine 5 (5-7)
--- NOTE | 2021-12-30 03:27 | PC.PHAR ---
Vancomycin is dosed at 1000mg IVPB every 48 hours to produce a predicted trough level of 13.83 (population based pharmacokinetic analysis). A trough level has been ordered from the lab to be obtained before the third dose to confirm and adjust if needed.
[2021-12-30] MEDS: pantoprazole 40 mg SDV IVP (03:51)
[2021-12-30 05:15] LABS: Basophils % 0.1 %; Hematocrit 35.3 % (37.0-47.0); Hemoglobin 11.1 g/dL (11.5-15.3); Lymphocytes # 0.3 10^3/uL (0.8-4.8); Lymphocytes % 2.6 %; Mean Corpuscular HGB Conc 31.4 g/dL (30.0-36.0); Mean Corpuscular Hemoglobin 29.8 pg (28.0-34.0); Mean Corpuscular Volume 94.6 fl (81-99); Mean Platelet Volume 12.4 fL (7.4-10.4); Monocytes # 0.1 10^3/uL (0.2-0.9); Monocytes % 0.9 %; Neutrophils # 12.34 10^3/uL (1.8-7.7); Neutrophils % 95.9 %; Nucleated Red Blood Cells % 0 %; Platelet Count 269 10^3/cmm (130-400); Red Blood Count 3.73 10^6/uL (4.1-5.3); Red Cell Distribution Width 16.1 % (12.1-15.1); White Blood Count 12.9 10^3/uL (4.0-10.0)
[2021-12-30] MEDS: cefepime 1,000 MG in sodium chloride 0.9% (plus) 50 ML 100 MG IV (05:31)
[2021-12-30 05:46] LABS: Blood Urea Nitrogen 43 mg/dL (8-23); Carbon Dioxide 18 mmol/L (22-29); Chloride 102 mmol/L (98-107); Glucose 209 mg/dL (65-115); Osmolality Calculated 297 mOsm/kg (285-295); Sodium 135 mmol/L (136-145)
[2021-12-30 05:49] LABS: Thyroid Stimulating Hormone 0.06 uIU/mL (0.27-4.20)
[2021-12-30 05:55] LABS: Anion Gap 19.5 (5-19); Potassium 4.5 mmol/L (3.5-5.1)
--- NOTE | 2021-12-30 08:21 | P.PN_ITS ---
Subjective Subjective: Kizzy is on the BiPAP. Is difficult to understand her but she opens her eyes, acknowledges my presence, and tries to say hello. Denies any pain. According to nursing no events overnight. Medications: Reviewed: Yes Vitals/I&O/Wt Last Vital Signs Temp 100.8 F H 12/30/21 07:00 Pulse 76 12/30/21 07:00 Resp 22 H 12/30/21 07:00 BP 126/75 12/30/21 07:00 Pulse Ox 96 12/30/21 07:00 12/29/21 12/30/21 12/30/21 22:59 06:59 14:59 Intake Total 50 / 50 800 / 850 Balance 50 / 50 800 / 850 Weight last 48 hrs Weight 60.328 kg Physical Exam Narrative: General exam is no distress on BiPAP, elevated temperature noted of 100.8 HEENT: BiPAP in place Neck is supple no lymphadenopathy thyromegaly Cardiovascular irregular, without murmur Lungs diminished breath sounds bilaterally. No wheezes or crackles Abdomen is soft. Positive bowel sounds. No obvious organomegaly exam demonstrates Fuentes, urine in bag Extremities no cyanosis clubbing or edema Skin normal without rash Urinary Catheter Management: Fuentes: Cath Placed During This Visit: yes Reason for Continuing Indwelling Catheter: Accurate Measurement of Urinary Output in Critically Ill Patients Urinary Catheter Date of Insertion: 12/29/21 Data : 12/30/21 04:10 12/30/21 04:10 Micro: Microbiology 12/29/21 18:20 Blood Culture - Preliminary Blood SPECIMEN COLLECTED 12/29/21 18:19 Blood Culture - Preliminary Blood SPECIMEN COLLECTED A&P Assessment and plan (1) Acute respiratory failure with hypoxia: Received Lasix, BiPAP in the emergency department. Currently on 50% FiO2 Attempt to wean off BiPAP today, and reassess. Status: Acute (2) Pneumonia: Continue cefepime, vancomycin Most consistent with aspiration Speech therapy consultation has been ordered Covid, influenza negative Sputum culture if we are able to obtain Blood cultures pending Status: Acute (3) Systolic heart failure: Currently appears compensated. Currently n.p.o. Hold diuretics currently. Reassess after off BiPAP. Status: Acute Qualifiers: Heart failure chronicity: chronic Qualified Code(s): I50.22 - Chronic systolic (congestive) heart failure (4) NSTEMI (non-ST elevated myocardial infarction): Elevated troponin on admission, with decreasing delta. Considering comorbidities, may not be a candidate for further testing. Medical treatment may be indicated. We will restart aspirin if she is able to swallow, and then reassess later if statin is indicated. Status: Acute (5) Altered mental status: Consistent with metabolic encephalopathy. Reassess today. Status: Acute (6) Hyperkalemia: Resolved. Avoid potassium, medications that would retain potassium Status: Acute Plan Chronic pain/DJD. Currently on fentanyl patch. If mental status is still an issue consider discontinuing/reducing History of hyperthyroidism. Currently on methimazole. Free T4 and free TSH recently checked and normal. TSH low. History of atrial fibrillation. Continue Eliquis, diltiazem. Rate is controlled. Also has pacemaker. Allow natural Eliquis will suffice for DVT prophylaxis Attestations Medical Necessity Statement*: Needs continued hospital stay for IV antibiotics related to pneumonia Critical Care Time: The high probability of a clinically significant, sudden or life threatening deterioration of the patient's [pulmonary, infectious disease cardiac system(s) required my full and direct attention, intervention and personal management. The critical care time is as shown. This time is in addition to time spent performing any reported procedures but includes the following: [x] Data and vital sign review and interpretation [x] Patient assessment, examination and intervention [x] Documentation [x] Medication orders and management Critical Care Time (min): 32 Coding Level of Care Code Acute Concrete Block Mason for Ajay Kasper Diagnoses Acute respiratory failure with hypoxia J96.01 Pneumonia J18.9 Systolic heart failure I50.22 Heart failure chronicity: chronic NSTEMI (non-ST elevated myocardial infarction) I21.4 Altered mental status R41.82 Hyperkalemia E87.5
[2021-12-30] MEDS: nystatin powder 15 gm Btl 1 APPLIC TOPICAL (10:00)
[2021-12-30] MEDS: HYDROcodone-acetaminophen 7.5-325 mg Tablet 1 TAB PO (14:38)
[2021-12-30] MEDS: ondansetron 4 MG Tablet PO (14:39)
[2021-12-30 15:26] LABS: Bacillus cereus group Not Detected (NOT DETECT); Bacillus subtillis group Not Detected (NOT DETECT); Corynebacterium Not Detected (NOT DETECT); Cutibacterium acnes (P.acnes) Not Detected (NOT DETECT); Enterococcus Not Detected (NOT DETECT); Enterococcus faecalis Not Detected (NOT DETECT); Enterococcus faecium Not Detected (NOT DETECT); Lactobacillus species Not Detected (NOT DETECT); Listeria Not Detected (NOT DETECT); Listeria monocytogenes Not Detected (NOT DETECT); Micrococcus Not Detected (NOT DETECT); Pan Candida Not Detected (NOT DETECT); Pan Gram-Negative Not Detected (NOT DETECT); Staphylococcus epidermidis Detected (NOT DETECT); Staphylococcus lugdunensis Not Detected (NOT DETECT); Staphylococcus species Detected (NOT DETECT); Streptococcus agalactiae Not Detected (NOT DETECT); Streptococcus anginosus group Not Detected (NOT DETECT); Streptococcus pneumoniae Not Detected (NOT DETECT); Streptococcus pyogenes Not Detected (NOT DETECT); Streptococcus species Not Detected (NOT DETECT); mecA Detected (NOT DETECT); mecC Not Detected (NOT DETECT)
--- NOTE | 2021-12-30 20:00 | PC.NURSE ---
Family at Bedside Family at patient bedside from [phone]. Visitors stated had no questions. Oxygen requirements discussed to which family verbalized understanding.
[2021-12-31] VITALS (36 sets, daily range): BP systolic 115–168; BP diastolic 60–107; PULSE 52–90; RESP 16–40; TEMP 36.6–39.4; O2SAT 89–98; BMI 28.8
--- NOTE | 2021-12-31 01:15 | PC.NURSE ---
Cardiac Monitoring Dropped QRS complexes and pauses noted in patient's cardiac monitoring several times. Dr. Antony notified and orders received to interrogate patient's ICD as well as to draw a morning magnesium. Pacemaker interrogated and data sent to [employer].
[2021-12-31] MEDS: pantoprazole 40 mg SDV IVP (02:13)
--- NOTE | 2021-12-31 02:28 | PC.NURSE ---
[employer] called and discussed patient's ICD interrogation with nurse. [employer] informed of dropped QRS complexes and pauses in cardiac monitoring. Worker indicated second call is to be received from a retention representative. [employer] phone number relayed.
--- NOTE | 2021-12-31 03:05 | PC.NURSE ---
[employer] Followup Call received from Andrew with [employer]. He stated that the interrogation of the patient's ICD indicated no issues mechanically. However, as the discrepancies were reported, a inbound call center representative will stop by and assess the patient's ICD in person this AM.
--- NOTE | 2021-12-31 05:25 | PC.NURSE ---
Blood Pressure Patient's blood pressure ranging from 154-160 systolic and 82-[address] Antony notified; no new orders received.
[2021-12-31 05:37] LABS: Basophils % 0.1 %; Hemoglobin 12.3 g/dL (11.5-15.3); Lymphocytes # 0.8 10^3/uL (0.8-4.8); Lymphocytes % 5.3 %; Mean Corpuscular HGB Conc 32.4 g/dL (30.0-36.0); Mean Corpuscular Hemoglobin 30.3 pg (28.0-34.0); Mean Corpuscular Volume 93.6 fl (81-99); Monocytes # 1.1 10^3/uL (0.2-0.9); Monocytes % 7.3 %; Neutrophils # 12.88 10^3/uL (1.8-7.7); Neutrophils % 86.8 %; Nucleated Red Blood Cells % 0 %; Platelet Count 274 10^3/cmm (130-400); Red Blood Count 4.06 10^6/uL (4.1-5.3); Red Cell Distribution Width 16.8 % (12.1-15.1); White Blood Count 14.8 10^3/uL (4.0-10.0)
[2021-12-31] MEDS: cefepime 1,000 MG in sodium chloride 0.9% (plus) 50 ML 100 MG IV (05:57)
[2021-12-31 06:15] LABS: Anion Gap 17.9 (5-19); Blood Urea Nitrogen 37 mg/dL (8-23); Calcium 9.8 mg/dL (8.5-10.5); Carbon Dioxide 20 mmol/L (22-29); Chloride 106 mmol/L (98-107); Glucose 129 mg/dL (65-115); Osmolality Calculated 300 mOsm/kg (285-295); Potassium 3.9 mmol/L (3.5-5.1); Sodium 140 mmol/L (136-145)
[2021-12-31 06:35] LABS: Magnesium 1.9 mg/dL (1.7-2.3)
[2021-12-31] MEDS: sennosides-docusate Tablet 1 TAB PO (08:20)
[2021-12-31] MEDS: methIMAzole 5 MG Tablet 7.5 MG PO (08:20)
[2021-12-31] MEDS: apixaban 5 mg Tablet 2.5 MG PO ×2 (08:20→19:22)
[2021-12-31] MEDS: aspirin 81 mg EC Tablet PO (08:20)
[2021-12-31] MEDS: dilTIAZem ER (24HR) 120 mg Capsule PO (08:20)
[2021-12-31] MEDS: duloxetine 60 mg Capsule PO (08:20)
[2021-12-31] MEDS: lactulose oral liq 20 gm/30 mL UDC 10 GM PO ×2 (08:21→19:21)
[2021-12-31] MEDS: nystatin powder 15 gm Btl 1 APPLIC TOPICAL (08:32)
--- NOTE | 2021-12-31 10:09 | PM.PN ---
Subjective Subjective: Kizzy is awake, and responsive. She will answer questions appropriately, but seems distant. Denies significant chest discomfort or shortness of breath currently. Medications: Reviewed: Yes Vitals/I&O/Wt Last Vital Signs Temp 98.4 F 12/31/21 08:00 Pulse 72 12/31/21 09:00 Resp 26 H 12/31/21 09:00 BP 130/107 12/31/21 09:00 Pulse Ox 91 12/31/21 09:00 12/30/21 12/31/21 12/31/21 22:59 06:59 14:59 Intake Total 0 / 0 120 / 120 110 / 110 Output Total 775 / 775 475 / 1250 Balance -775 / -775 -355 / -1130 110 / 110 Weight last 48 hrs Weight 62.686 kg Weight 60.328 kg Physical Exam Narrative: General exam: On 3 L, mild respiratory distress with accessory muscle use HEENT: Normal Neck is supple no lymphadenopathy thyromegaly Cardiovascular irregular, without murmur Lungs diminished breath sounds bilaterally. No wheezes or crackles Abdomen is soft. Positive bowel sounds. No obvious organomegaly exam demonstrates Fuentes, urine in bag Extremities no cyanosis clubbing or edema Skin normal without rash Urinary Catheter Management: Fuentes: Cath Placed During This Visit: yes Reason for Continuing Indwelling Catheter: Accurate Measurement of Urinary Output in Critically Ill Patients Urinary Catheter Date of Insertion: 12/29/21 Data : 12/31/21 05:00 12/31/21 05:00 Micro: Microbiology 12/29/21 22:05 Urine Culture - Preliminary Urine,Clean Catch Yeast 12/31/21 04:20 Bacterial Antigens - Final Urine,Clean Catch 12/31/21 04:20 Legionella Urinary Antigen - Final Urine Catheterized 12/29/21 18:20 Blood Culture - Preliminary Blood Staphylococcus epidermidis Gram positive dago 12/29/21 18:19 Blood Culture - Preliminary Blood Staphylococcus epidermidis Gram positive dago A&P Assessment and plan (1) Acute respiratory failure with hypoxia: Improved and now on 3 i liters per nasal cannula. I believe this is similar to what she uses at the nursing facility. Status: Acute (2) Pneumonia: Continue cefepime, vancomycin Most consistent with aspiration Check MRSA PCR Speech therapy consultation has been ordered. She is currently n.p.o. Covid, influenza negative Sputum culture if we are able to obtain Blood cultures showing 2 bottles with staph epidermidis and gram-positive dago. Will repeat blood culture. Suspect contaminants. Status: Acute (3) Systolic heart failure: Currently appears compensated. Currently n.p.o. Hold diuretics currently. When more p.o. intake is initiated she will need restart of diuretics. Status: Acute Qualifiers: Heart failure chronicity: chronic Qualified Code(s): I50.22 - Chronic systolic (congestive) heart failure (4) NSTEMI (non-ST elevated myocardial infarction): Elevated troponin on admission, with decreasing delta. Considering comorbidities, may not be a candidate for further testing. Medical treatment may be indicated. We will restart aspirin if she is able to swallow, and then reassess later if statin is indicated. Pacemaker interrogation has been ordered. Status: Acute (5) Altered mental status: Consistent with metabolic encephalopathy. Reassess today. Status: Acute (6) Hyperkalemia: Resolved. Avoid potassium, medications that would retain potassium Status: Acute Plan Chronic pain/DJD. Currently on fentanyl patch. If mental status is still an issue consider discontinuing/reducing History of hyperthyroidism. Currently on methimazole. Free T4 and free TSH recently checked and normal. TSH low. History of atrial fibrillation. Continue Eliquis, diltiazem. Rate is controlled. Also has pacemaker. Order for interrogation has been generated. I suspect it will be similar to the interrogation report December 13. UTI. Urine culture growing yeast. Start on fluconazole 200 mg daily Allow natural Eliquis will suffice for DVT prophylaxis Attestations Medical Necessity Statement*: Needs continued hospital stay for IV antibiotics related to pneumonia May transfer out of ICU Coding Level of Care Code Acute As400 Developer for [facility] Fwdilip Diagnoses Acute respiratory failure with hypoxia J96.01 Pneumonia J18.9 Systolic heart failure I50.22 Heart failure chronicity: chronic NSTEMI (non-ST elevated myocardial infarction) I21.4 Altered mental status R41.82 Hyperkalemia E87.5
[2021-12-31] MEDS: fluconazole 100 mg Tablet 200 MG PO (11:25)
--- NOTE | 2021-12-31 11:51 | PC.CHAP ---
Pastoral Care Encounter/Spiritual Assessment Type of Contact [] Declined golf cart repairer visit [] Patient/Family/Request visit [] Outpatient visit [] Follow-up visit [] Physician referral [] Code/Alert [x] Routine visit [] Staff referral [] Actively dying [] Patient sleeping [] Family support [] [] Out of room [] Palliative care [] [] Receiving care in room [] Pre-surgical visit [] Trauma [] Long length of stay [x] ICU visit [] Other: Relational/Emotional Strength [] Patient feels connected with others/family/visitors/staff [] Distress [] Loneliness/isolation [] Abandonment Spirituality of Patient [] Person of Sanjana [] Attends Holiness of their Sanjana [] Believes in Prayer [] Reads Bible or Gnosticist materials [] There are Spiritual issues to be addressed Business Support Liaison Interventions [x] Prayer [] Active listening [] Non-anxious presence [] Spiritual/emotional support [] Crisis/trauma care [] Spiritual counseling [] Bereavement support [] Provided bereavement packet [] Provided Bible/devotional materials [] Provided toy/stuffed animal, coloring book to patient or family member [] Provided Communion [] Anointing/[place] [] Salvation [x] Completed spiritual assessment [] Other: Impact on Illness or Injury [] Angry [] Fearful [] Anxious [] Often cries [] Exhaustion [] Unable to work [] Unable to attend tenriism [] Unable to walk/stand [] Unable to read [] Unable to drive [] Unable to eat/drink [] Unable to sleep [] Unable to be with family [] Patient intubated [] Other: Summary Time spent with patient
--- NOTE | 2021-12-31 14:57 | PC.NURSE ---
Pt transferred to room 271, report given to Carol MARTINEZ. Pacer interrogated per [employer] rep. No dysfunction noted.
--- NOTE | 2021-12-31 16:14 | ECG_ITS ---
[facility] Test Date: 2021-12-31 Pat Name: Kizzy Salgado Department: Room: 271 Gender: Female Pharmacist Aide: : 1940 Requested By: Crescencio Rivera Order Number: [id number] Kayla MD: Kanu Alicea M.D. Measurements Intervals [place] Rate: 82 P: -63 MO: 120 QRS: -26 QRSD: 96 T: -34 QT: 355 QTc: 415 Interpretive Statements Atrial fibrillation that underwent a response rate. Incomplete right bundle branch block pattern Diffuse nonspecific T wave changes. Heavy baseline artifact, need to repeat the study Electronically Signed On 12-31-2021 17:18:24 CDT by Kanu Alicea M.D. [id number]
[2021-12-31] MEDS: acetaminophen 1,000 MG/100 ML PIGGYBACK 400 MG IV (16:38)
[2021-12-31] MEDS: FUROsemide 10 mg/mL SDV 10mL 60 MG IVP (16:38)
[2021-12-31] MEDS: dilTIAZem 60 mg Tablet PO (19:47)
[2021-12-31] MEDS: vancomycin 1,000 MG in sodium chloride 0.9% 250 ML 250 MG IV (20:39)
[2022-01-01] VITALS (20 sets, daily range): BP systolic 110–120; BP diastolic 56–76; PULSE 60–73; RESP 19–40; TEMP 36.4–39.2; O2SAT 94–99
[2022-01-01] MEDS: pantoprazole 40 mg SDV IVP (02:43)
--- NOTE | 2022-01-01 05:04 | PC.NURSE ---
Fentnyl patch 50mcg dated 12/27 initials TF removed from pt back right shoulder. Waste witnessed by charge nurse Kassidy Cortez RN.
[2022-01-01 05:06] LABS: Basophils % 0.1 %; Hematocrit 39.5 % (37.0-47.0); Hemoglobin 12.1 g/dL (11.5-15.3); Lymphocytes # 1.4 10^3/uL (0.8-4.8); Lymphocytes % 8.6 %; Mean Corpuscular HGB Conc 30.6 g/dL (30.0-36.0); Mean Corpuscular Hemoglobin 29.8 pg (28.0-34.0); Mean Corpuscular Volume 97.3 fl (81-99); Mean Platelet Volume 11.2 fL (7.4-10.4); Monocytes # 1.2 10^3/uL (0.2-0.9); Monocytes % 7.2 %; Neutrophils # 13.56 10^3/uL (1.8-7.7); Neutrophils % 83.7 %; Nucleated Red Blood Cells % 0.1 %; Platelet Count 331 10^3/cmm (130-400); Red Blood Count 4.06 10^6/uL (4.1-5.3); Red Cell Distribution Width 17.4 % (12.1-15.1); White Blood Count 16.2 10^3/uL (4.0-10.0)
[2022-01-01 05:33] LABS: Anion Gap 15.8 (5-19); Blood Urea Nitrogen 40 mg/dL (8-23); Calcium 9.7 mg/dL (8.5-10.5); Carbon Dioxide 21 mmol/L (22-29); Chloride 108 mmol/L (98-107); Glucose 150 mg/dL (65-115); Magnesium 2.1 mg/dL (1.7-2.3); Osmolality Calculated 305 mOsm/kg (285-295); Potassium 3.8 mmol/L (3.5-5.1); Sodium 141 mmol/L (136-145)
[2022-01-01] MEDS: cefepime 1,000 MG in sodium chloride 0.9% (plus) 50 ML 100 MG IV (05:38)
[2022-01-01] MEDS: fentaNYL 50 mcg Patch 1 PATCH TRANSDERMA (06:25)
[2022-01-01 10:21] LABS: ABG PCO2 34.2 mmHg (35-45); ABG PH Result 7.47 (7.35-7.45); Arterial Blood Gas Hematocrit 41.5 % (37-47); Base Excess ABG 1.7 mmol/L (-2.0-2.0); Blood Gas Allen Test Pos; Blood Gas Sample Type Arterial; Carboxyhemoglobin 0.9 %THgb (0.4-20.1); Ionized Calcium Level - ABG 1.3 mmol/L (1.1-1.4); Methemoglobin 0.4 % (0.4-1.5); Oxygen Saturation ABG 97.1; PO2 ABG 80.5 mmHg (80.0-100.0); Potassium Level - ABG 3.8 mmol/L (3.5-5.0); Total Hemoglobin 13.5 g/dL (12-16)
[2022-01-01 10:22] LABS: Alveolar-Arterial Oxygen Gradi 16.4 mmHg (5-10); Blood Gas Operator Identificat MONRO; Blood Gas Sample Site Radial, left; Oxygen Device BIPAP
--- NOTE | 2022-01-01 10:28 | PC.NURSE ---
Patient is lethargic. Spoke with Dr. Rolle in person and ordered STAT ABG. Sent secure message to Aquilino via Voalte and he okayed a HOLD on morning medications. Showed they were not administered due to patient lethargy.
[2022-01-01 11:26] LABS: Glucose Point of Care 130 mg/dL (70-110)
--- NOTE | 2022-01-01 12:02 | PC.NURSE ---
Called Dr. Gaspar regarding temperature if 102.5. Physician placed order for IV acetaminophen.
[2022-01-01] MEDS: acetaminophen 1,000 MG/100 ML PIGGYBACK 400 MG IV ×2 (12:03→13:25)
--- NOTE | 2022-01-01 12:35 | PC.NURSE ---
Spoke with Dr. Gaspar regarding temperature post IV acetaminophen administration of 101.1. Physician stated to recheck temperature in 15 minutes. If the temperature is still high, I will call him back for orders.
--- NOTE | 2022-01-01 13:08 | PM.PN ---
Subjective Subjective: Patient was seen this morning, she is currently on BiPAP, slumped over to her side, she does not awaken to her name, she does withdraw from pain, she does open her eyes to sternal rub, but does not follow commands, she is febrile this morning up to 102.5 Vitals/I&O/Wt Last Vital Signs Temp 102.5 F H 01/01/22 12:00 Pulse 61 01/01/22 12:00 Resp 33 H 01/01/22 12:00 BP 120/71 01/01/22 12:00 Pulse Ox 97 01/01/22 12:00 12/31/21 01/01/22 01/01/22 22:59 06:59 14:59 Intake Total 550 / 720 310 / 1030 100 / 100 Output Total 800 / 800 500 / 1300 175 / 175 Balance -250 / -80 -190 / -270 -75 / -75 Weight last 48 hrs Weight 64.365 kg Weight 62.686 kg Physical Exam Const: COMMON NORMALS: no acute distress EXAM LIMITATIONS: altered mental status ORIENTATION/CONSCIOUSNESS: Yes awake; not oriented to person, not oriented to place and not oriented to time Resp: COMMON NORMALS: normal respiratory effort, No retractions and No use of accessory muscles AUSCULTATION: crackles and wheezes Cardio: COMMON NORMALS: regular rate, regular rhythm, S1 normal heart sound present and S2 normal heart sound present RATE: regular rate RHYTHM: regular rhythm HEART SOUNDS: S1 normal heart sound present and S2 normal heart sound present GI: COMMON NORMALS: Normal to inspection, nondistended, normoactive bowel sounds present, Soft to palpation, non-tender and No hepatosplenomegaly present PALPATION: Yes Soft to palpation and Yes No hepatosplenomegaly present Extremity: COMMON NORMALS: no pedal edema Neuro: SENSORIUM/ORIENTATION: No oriented to person, No oriented to place and No oriented to time Psych: COMMON NORMALS: mental status grossly normal Urinary Catheter Management: Fuentes: Cath Placed During This Visit: yes Reason for Continuing Indwelling Catheter: Assist Healing of Perineal & Sacral Wounds- Incontinent Patients Urinary Catheter Date of Insertion: 12/29/21 Data : 01/01/22 04:54 01/01/22 04:54 Micro: Microbiology 12/31/21 10:50 Blood Culture - Preliminary Blood NEGATIVE TO DATE 12/31/21 10:40 Blood Culture - Preliminary Blood NEGATIVE TO DATE 12/31/21 09:34 MRSA Culture - Final Nose 12/29/21 18:20 Blood Culture - Preliminary Blood Staphylococcus epidermidis Corynebacterium species 12/29/21 18:19 Blood Culture - Preliminary Blood Staphylococcus epidermidis Corynebacterium species A&P Assessment and plan (1) Acute respiratory failure with hypoxia: Recurrent respiratory failure, likely second aspiration event Currently on BiPAP, continue BiPAP therapy Monitor respiratory status closely Status: Acute (2) Pneumonia: Continue vancomycin, Antibiotic coverage for Primaxin Most consistent with aspiration Check MRSA PCR Speech therapy consultation has been ordered. She is currently n.p.o. Covid, influenza negative Sputum culture if we are able to obtain Blood cultures showing 2 bottles with staph epidermidis and gram-positive dago. Will repeat blood culture. Suspect contaminants. Status: Acute (3) Systolic heart failure: Currently appears compensated. Currently n.p.o. Hold diuretics currently. When more p.o. intake is initiated she will need restart of diuretics. Status: Acute Qualifiers: Heart failure chronicity: chronic Qualified Code(s): I50.22 - Chronic systolic (congestive) heart failure (4) NSTEMI (non-ST elevated myocardial infarction): Elevated troponin on admission, with decreasing delta. Considering comorbidities, may not be a candidate for further testing. Medical treatment may be indicated. We will restart aspirin if she is able to swallow, and then reassess later if statin is indicated. Pacemaker interrogation has been ordered. Status: Acute (5) Altered mental status: Consistent with metabolic encephalopathy. Reassess today. Status: Acute (6) Hyperkalemia: Resolved. Avoid potassium, medications that would retain potassium Status: Acute (7) Gram-positive bacteremia: Gram-positive bacteremia, staph epidermidis, final cultures pending, continue vancomycin Status: Acute (8) Acute encephalopathy: Currently alert, responds to sternal rub, falls back asleep, Etiology is secondary to fever, aspiration, gram-positive bacteremia Status: Acute Plan Chronic pain/DJD. Currently on fentanyl patch. If mental status is still an issue consider discontinuing/reducing History of hyperthyroidism. Currently on methimazole. Free T4 and free TSH recently checked and normal. TSH low. History of atrial fibrillation. Continue Eliquis, diltiazem. Rate is controlled. Also has pacemaker. Order for interrogation has been generated. I suspect it will be similar to the interrogation report December 13. UTI. Urine culture growing yeast. Start on fluconazole 200 mg daily Allow natural Eliquis will suffice for DVT prophylaxis Attestations Medical Necessity Statement*: Patient requires hospitalization for acute respiratory failure, acute encephalopathy Coding Level of Care Code Acute Dyed Raw Stock Blower Feeder for Ajay Kasper Diagnoses Acute respiratory failure with hypoxia J96.01 Pneumonia J18.9 Systolic heart failure I50.22 Heart failure chronicity: chronic NSTEMI (non-ST elevated myocardial infarction) I21.4 Altered mental status R41.82 Hyperkalemia E87.5 Gram-positive bacteremia R78.81 Acute encephalopathy G93.40
--- NOTE | 2022-01-01 13:09 | PC.NURSE ---
Patients temp was rechecked and is 101.3. Spoke with Dr. Gaspar. Physician putting in order for more IV acetaminophen.
--- NOTE | 2022-01-01 13:49 | PC.NURSE ---
Spoke with Dr. Gaspar regarding patients temperature of 99.9 after second administration of IV acetaminophen. Physician has been notified.
--- NOTE | 2022-01-01 18:38 | PC.NURSE ---
Securely messaged Dr. Gaspar via Voalte. Physician okayed the holding of PO medications.
[2022-01-02] VITALS (13 sets, daily range): BP systolic 104–150; BP diastolic 57–86; PULSE 60–85; RESP 16–24; TEMP 36.5–37.7; O2SAT 95–100
[2022-01-02 06:27] LABS: Glucose Point of Care 144 mg/dL (70-110)
[2022-01-02 06:27] LABS: Glucose Point of Care 160 mg/dL (70-110)
[2022-01-02] MEDS: pantoprazole 40 mg SDV IVP (06:33)
--- NOTE | 2022-01-02 09:10 | PC.SOCIAL ---
Pg 2 IMM Explained to pt Pg 2 IMM. No questions voiced. Provided pt a copy. Initialed, dated, & timed a copy & placed in chart.
[2022-01-02 09:49] LABS: Eosinophils % 0.1 %; Hematocrit 37.9 % (37.0-47.0); Hemoglobin 11.3 g/dL (11.5-15.3); Lymphocytes # 1.4 10^3/uL (0.8-4.8); Lymphocytes % 9.5 %; Mean Corpuscular HGB Conc 29.8 g/dL (30.0-36.0); Mean Corpuscular Hemoglobin 29.8 pg (28.0-34.0); Mean Platelet Volume 11.6 fL (7.4-10.4); Monocytes # 0.8 10^3/uL (0.2-0.9); Monocytes % 5.2 %; Neutrophils # 12.78 10^3/uL (1.8-7.7); Neutrophils % 84.7 %; Nucleated Red Blood Cells % 0.2 %; Platelet Count 241 10^3/cmm (130-400); Red Blood Count 3.79 10^6/uL (4.1-5.3); Red Cell Distribution Width 17.4 % (12.1-15.1); White Blood Count 15.1 10^3/uL (4.0-10.0)
[2022-01-02 10:12] LABS: Alanine Aminotransferase 10 U/L (0-33); Albumin Level 3.4 g/dL (3.5-5.2); Alkaline Phosphatase 52 IU/L (35-105); Blood Urea Nitrogen 41 mg/dL (8-23); Calcium 9.6 mg/dL (8.5-10.5); Carbon Dioxide 24 mmol/L (22-29); Chloride 116 mmol/L (98-107); Globulin 3.1 g/dL (1.3-4.6); Glucose 113 mg/dL (65-115); NT Pro B Type Natriuretic Pept 21175 pg/mL (0-450); Osmolality Calculated 325 mOsm/kg (285-295); Sodium 152 mmol/L (136-145); Total Bilirubin 0.6 mg/dL (0.15-1.2); Total Protein 6.5 g/dL (6.6-8.7)
[2022-01-02 10:33] LABS: Aspartate Amino Transferase 17 U/L (0-32)
--- NOTE | 2022-01-02 10:33 | PC.NURSE ---
I spoke with family about how the patient's vitals have been and what we have done to brig her fever down. I called and spoke with Dr. Gaspar about the family requesting to speak with the physician. Physician will be visiting shortly. Family has been notified.
[2022-01-02] MEDS: nystatin powder 15 gm Btl 1 APPLIC TOPICAL (11:44)
--- NOTE | 2022-01-02 15:05 | P.PN_ITS ---
Subjective Subjective: Patient was seen this morning, she is alert to person, tells me to go away, normotensive, 3 L, has been febrile for last 24 hours I met with patient's family at bedside, discussed my concerns for acute encephalopathy, bacteremia, persistent encephalopathy, the voices any, all questions answered Vitals/I&O/Wt Last Vital Signs Temp 99.4 F 01/02/22 12:00 Pulse 66 01/02/22 12:00 Resp 18 01/02/22 12:00 BP 104/62 01/02/22 12:00 Pulse Ox 97 01/02/22 12:00 01/02/22 01/02/22 01/02/22 06:59 14:59 22:59 Intake Total 200 / 600 320 / 320 Output Total 275 / 550 200 / 200 Balance -75 / 50 120 / 120 Weight last 48 hrs Weight 64.592 kg Weight 64.365 kg Physical Exam Const: COMMON NORMALS: no acute distress and patient oriented x3 Resp: COMMON NORMALS: normal respiratory effort, No retractions, No use of accessory muscles and clear to auscultation bilaterally AUSCULTATION: clear to auscultation bilaterally Cardio: COMMON NORMALS: regular rate, regular rhythm, S1 normal heart sound present and S2 normal heart sound present RATE: regular rate RHYTHM: regular rhythm HEART SOUNDS: S1 normal heart sound present and S2 normal heart sound present GI: COMMON NORMALS: Normal to inspection, nondistended, normoactive bowel sounds present, Soft to palpation and non-tender PALPATION: Yes Soft to palpation Extremity: COMMON NORMALS: no pedal edema Neuro: COMMON NORMALS: patient oriented x3 Psych: COMMON NORMALS: mental status grossly normal Urinary Catheter Management: Fuentes: Cath Placed During This Visit: yes Reason for Continuing Indwelling Catheter: Assist Healing of Perineal & Sacral Wounds- Incontinent Patients Urinary Catheter Date of Insertion: 12/29/21 Data : 01/02/22 09:25 01/02/22 09:25 Micro: Microbiology 12/29/21 22:05 Urine Culture - Final Urine,Clean Catch Dory albicans 12/29/21 18:20 Blood Culture - Final Blood Staphylococcus epidermidis Corynebacterium species 12/29/21 18:19 Blood Culture - Final Blood Staphylococcus epidermidis Corynebacterium species 12/31/21 10:50 Blood Culture - Preliminary Blood NEGATIVE TO DATE 12/31/21 10:40 Blood Culture - Preliminary Blood NEGATIVE TO DATE 12/31/21 09:34 MRSA Culture - Final Nose A&P Assessment and plan (1) Acute respiratory failure with hypoxia: Recurrent respiratory failure, likely second aspiration event Currently on 3 L, continue BiPAP therapy as needed, schedule during the wet process technician respiratory status closely Status: Acute (2) Pneumonia: Continue vancomycin, Continue Primaxin Most consistent with aspiration Check MRSA PCR Speech therapy consultation has been ordered. She is currently n.p.o. Covid, influenza negative Sputum culture if we are able to obtain Blood cultures showing 2 bottles with staph epidermidis and gram-positive dago. Will repeat blood culture. Status: Acute (3) Systolic heart failure: Currently appears compensated. Currently n.p.o. Hold diuretics currently. When more p.o. intake is initiated she will need restart of diuretics. Status: Acute Qualifiers: Heart failure chronicity: chronic Qualified Code(s): I50.22 - Chronic systolic (congestive) heart failure (4) NSTEMI (non-ST elevated myocardial infarction): Elevated troponin on admission, with decreasing delta. Considering comor bidities, may not be a candidate for further testing. Medical treatment may be indicated. We will restart aspirin if she is able to swallow, and then reassess later if statin is indicated. Pacemaker interrogation has been ordered. Status: Acute (5) Altered mental status: Consistent with metabolic encephalopathy. Reassess today. Status: Acute (6) Hyperkalemia: Resolved. Avoid potassium, medications that would retain potassium Status: Acute (7) Gram-positive bacteremia: Gram-positive bacteremia, staph epidermidis, final cultures pending, continue vancomycin Status: Acute (8) Acute encephalopathy: Currently alert, alert to person, not to place, not to time, Etiology is secondary to fever, aspiration, gram-positive bacteremia Status: Acute Plan Chronic pain/DJD. Currently on fentanyl patch. If mental status is still an issue consider discontinuing/reducing History of hyperthyroidism. Currently on methimazole. Free T4 and free TSH recently checked and normal. TSH low. History of atrial fibrillation. Continue Eliquis, diltiazem. Rate is controlled. Also has pacemaker. Order for interrogation has been generated. I suspect it will be similar to the interrogation report December 13. UTI. Urine culture growing yeast. Start on fluconazole 200 mg daily He is having diffuse spasms, seem like seizure-like episodes, will start Keppra Hyponatremia, serum sodium 154, start IV fluids Allow natural Eliquis will suffice for DVT prophylaxis Attestations Medical Necessity Statement*: Patient requires hospitalization for acute encephalopathy, pneumonia, UTI Coding Level of Care Code Acute Print Project Manager for g [employer] Diagnoses Acute respiratory failure with hypoxia J96.01 Pneumonia J18.9 Systolic heart failure I50.22 Heart failure chronicity: chronic NSTEMI (non-ST elevated myocardial infarction) I21.4 Altered mental status R41.82 Hyperkalemia E87.5 Gram-positive bacteremia R78.81 Acute encephalopathy G93.40
[2022-01-02] MEDS: sodium chloride 0.9% 1,000 ML 75 ML IV (15:53)
[2022-01-02] MEDS: dilTIAZem 60 mg Tablet PO ×2 (15:59→20:01)
[2022-01-02] MEDS: lactulose oral liq 20 gm/30 mL UDC 10 GM PO (19:46)
[2022-01-02] MEDS: apixaban 5 mg Tablet 2.5 MG PO (19:46)
[2022-01-02 20:56] LABS: Vancomycin Trough 5.6 ug/mL (10-15)
--- NOTE | 2022-01-02 21:07 | PC.PHAR ---
Vancomycin trough is 5.6. Dosage is increase to 1gm IVPB every 24 hours with another trough to be obtained before the fourth dose at this rate.
[2022-01-02] MEDS: vancomycin 1,000 MG in sodium chloride 0.9% 250 ML 250 MG IV (22:03)
--- NOTE | 2022-01-02 23:31 | PC.NURSE ---
i reported high temp 99.8 and high reps 20 to nurse
[2022-01-03] VITALS (11 sets, daily range): BP systolic 103–126; BP diastolic 59–74; PULSE 60–72; RESP 17–24; TEMP 36.8–37.5; O2SAT 90–99
[2022-01-03] MEDS: dilTIAZem 60 mg Tablet PO (03:57)
[2022-01-03 04:11] LABS: Basophils % 0.2 %; Eosinophils # 0.1 10^3/uL (0.0-0.8); Eosinophils % 0.7 %; Hematocrit 38.8 % (37.0-47.0); Hemoglobin 11.2 g/dL (11.5-15.3); Lymphocytes # 1.4 10^3/uL (0.8-4.8); Lymphocytes % 12.4 %; Mean Corpuscular HGB Conc 28.9 g/dL (30.0-36.0); Mean Corpuscular Hemoglobin 30.7 pg (28.0-34.0); Mean Corpuscular Volume 106.3 fl (81-99); Mean Platelet Volume 11.9 fL (7.4-10.4); Monocytes # 0.6 10^3/uL (0.2-0.9); Monocytes % 5.5 %; Neutrophils # 8.88 10^3/uL (1.8-7.7); Neutrophils % 80.7 %; Nucleated Red Blood Cells % 0.3 %; Platelet Count 211 10^3/cmm (130-400); Red Blood Count 3.65 10^6/uL (4.1-5.3); Red Cell Distribution Width 17.8 % (12.1-15.1)
[2022-01-03 04:31] LABS: Slide Review Slide Review Perform
[2022-01-03 04:32] LABS: NT Pro B Type Natriuretic Pept 13282 pg/mL (0-450); Procalcitonin 0.41 ng/mL (0-0.5)
[2022-01-03 04:43] LABS: Albumin Level 2.9 g/dL (3.5-5.2); Alkaline Phosphatase 42 IU/L (35-105); Blood Urea Nitrogen 40 mg/dL (8-23); C Reactive Protein 14.3 mg/L (0.0-4.9); Calcium 9.1 mg/dL (8.5-10.5); Carbon Dioxide 19 mmol/L (22-29); Chloride 120 mmol/L (98-107); Globulin 3.6 g/dL (1.3-4.6); Glucose 109 mg/dL (65-115); Magnesium 2.5 mg/dL (1.7-2.3); Osmolality Calculated 320 mOsm/kg (285-295); Phosphorus 3.1 mg/dL (2.5-4.5); Sodium 150 mmol/L (136-145); Total Bilirubin 0.5 mg/dL (0.15-1.2); Total Protein 6.5 g/dL (6.6-8.7)
[2022-01-03 04:55] LABS: Alanine Aminotransferase 8 U/L (0-33); Anion Gap 15.6 (5-19); Aspartate Amino Transferase 27 U/L (0-32); Potassium 4.6 mmol/L (3.5-5.1)
[2022-01-03] MEDS: pantoprazole 40 mg SDV IVP (05:52)
--- NOTE | 2022-01-03 09:47 | PC.NURSE ---
PT IS NOT AAO TO TAKE MEDS PO, DR. CORONADO NOTIFIED AND OKAYED
[2022-01-03] MEDS: haloperidol inj 5 mg/mL INJ 1 mL 1 MG IVP ×2 (12:34→21:13)
[2022-01-03] MEDS: nystatin powder 15 gm Btl 1 APPLIC TOPICAL (12:38)
--- NOTE | 2022-01-03 14:07 | CTR_ITS ---
PROCEDURE INFORMATION: Exam: CT Head Without Contrast Exam date and time: 01/03/2022 4:08 PM Age: 81 years old Clinical indication: Altered mental status/memory loss; Additional info: AMS TECHNIQUE: Imaging protocol: Computed tomography of the head without contrast. Radiation optimization: All CT scans at this facility use at least one of these dose optimization techniques: automated exposure control; mA and/or kV adjustment per patient size (includes targeted exams where dose is matched to clinical indication); or iterative reconstruction. COMPARISON: CT head wo con* [id number] 12/29/2021 8:08 PM RADIATION DOSE METRICS: Total DLP (mGy-cm): 1043.74 FINDINGS: Brain: No hemorrhage. Redemonstrated mild diffuse cerebral atrophy and moderate sequela of chronic small vessel ischemic disease most pronounced in the periventricular, deep, and subcortical white matter tracts surrounding the proximal aspects of the temporal horns of the lateral ventricles. No mass effect. Cerebral ventricles: No ventriculomegaly. Paranasal sinuses: Visualized sinuses are unremarkable. No fluid levels. Mastoid air cells: Visualized mastoid air cells are well aerated. Bones/joints: Unremarkable. No acute fracture. Soft tissues: Unremarkable. CT/CT head wo con* [id number] IMPRESSION: 1. No acute intracranial abnormality. 2. Redemonstrated mild diffuse cerebral atrophy and moderate sequela of chronic small vessel ischemic disease.
--- NOTE | 2022-01-03 14:08 | PM.PN ---
Subjective Subjective: Patient was seen this morning, she is alert, falls back asleep, does not follow commands, she keeps taking off her oxygen, putting it on her forehead, afebrile overnight, normotensive, Vitals/I&O/Wt Last Vital Signs Temp 98.3 F 01/03/22 11:01 Pulse 64 01/03/22 11:01 Resp 20 H 01/03/22 11:01 BP 117/71 01/03/22 11:01 Pulse Ox 91 01/03/22 11:01 01/02/22 01/03/22 01/03/22 22:59 06:59 14:59 Intake Total 708.75 / 1028.75 691.25 / 1720.00 0 / 0 Output Total 180 / 380 40 / 420 Balance 528.75 / 648.75 651.25 / 1300.00 0 / 0 Weight last 48 hrs Weight 63.645 kg Weight 64.592 kg Physical Exam Const: COMMON NORMALS: no acute distress Resp: COMMON NORMALS: normal respiratory effort, No retractions, No use of accessory muscles and clear to auscultation bilaterally AUSCULTATION: clear to auscultation bilaterally Cardio: COMMON NORMALS: regular rate, regular rhythm, S1 normal heart sound present and S2 normal heart sound present RATE: regular rate RHYTHM: regular rhythm HEART SOUNDS: S1 normal heart sound present and S2 normal heart sound present GI: COMMON NORMALS: Normal to inspection, nondistended, normoactive bowel sounds present, Soft to palpation, non-tender and No hepatosplenomegaly present PALPATION: Yes Soft to palpation and Yes No hepatosplenomegaly present Extremity: COMMON NORMALS: no pedal edema Urinary Catheter Management: Fuentes: Cath Placed During This Visit: yes Reason for Continuing Indwelling Catheter: Assist Healing of Perineal & Sacral Wounds- Incontinent Patients Urinary Catheter Date of Insertion: 12/29/21 Data : 01/03/22 03:05 01/03/22 03:05 Micro: Microbiology 12/29/21 22:05 Urine Culture - Final Urine,Clean Catch Dory albicans A&P Assessment and plan (1) Acute respiratory failure with hypoxia: Recurrent respiratory failure, likely second aspiration event Currently on 3 L, continue BiPAP therapy as needed, 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 She is currently n.p.o. Covid, influenza negative Sputum culture if we are able to obtain Blood cultures showing 2 bottles with staph epidermidis and gram-positive dago. Repeat blood cultures negative Status: Acute (3) Systolic heart failure: Currently appears compensated. Currently n.p.o. Hold diuretics currently. When more p.o. intake is initiated she will need restart of diuretics. Status: Acute Qualifiers: Heart failure chronicity: chronic Qualified Code(s): I50.22 - Chronic systolic (congestive) heart failure (4) NSTEMI (non-ST elevated myocardial infarction): Elevated troponin on admission, with decreasing delta. Considering comorbidities, may not be a candidate for further testing. Medical treatment may be indicated. We will restart aspirin if she is able to swallow, and then reassess later if statin is indicated. Pacemaker interrogation has been ordered. Status: Acute (5) Altered mental status: Consistent with metabolic encephalopathy. Some component related bacteremia, pneumonia, hypoxia, will repeat CT of the head Status: Acute (6) Hyperkalemia: Resolved. Avoid potassium, medications that would retain potassium Status: Acute (7) Gram-positive bacteremia: Gram-positive bacteremia, staph epidermidis, source, likely pneumonia, or UTI However she does have a defibrillator in place, this possibly could be a source Repeat blood cultures so far negative Continue antibiotic therapy Status: Acute (8) Acute encephalopathy: Currently alert, alert to person, not to place, not to time, Etiology is secondary to fever, aspiration, staph epidermidis bacteremia We will repeat CT of the head Status: Acute Plan Chronic pain/DJD. Currently on fentanyl patch. If mental status is still an issue consider discontinuing/reducing History of hyperthyroidism. Currently on methimazole. Free T4 and free TSH recently checked and normal. TSH low. History of atrial fibrillation. Continue Eliquis, diltiazem. Rate is controlled. Also has pacemaker. Order for interrogation has been generated. I suspect it will be similar to the interrogation report December 13. UTI. Urine culture growing yeast. Start on fluconazole 200 mg daily He is having diffuse spasms, seem like seizure-like episodes, will start Keppra Hypernatremia, serum sodium 150, continue IV fluids, monitor mentation Allow natural Eliquis will suffice for DVT prophylaxis Attestations Medical Necessity Statement*: Patient requires hospitalization for acute encephalopathy, hyernatremia, gram-positive bacteremia Coding Level of Care Code Acute Visitor Services Technician for [facility] Fwd Diagnoses Acute respiratory failure with hypoxia J96.01 Pneumonia J18.9 Systolic heart failure I50.22 Heart failure chronicity: chronic NSTEMI (non-ST elevated myocardial infarction) I21.4 Altered mental status R41.82 Hyperkalemia E87.5 Gram-positive bacteremia R78.81 Acute encephalopathy G93.40
[2022-01-03] MEDS: LORazepam 2 mg/mL INJ 1 mL 1 MG IVP (14:20)
[2022-01-03] MEDS: sodium chloride 0.9% 1,000 ML 75 ML IV (18:17)
[2022-01-03] MEDS: fluconazole premix 200 MG/100 ML PREMIX 100 MG IV (20:43)
[2022-01-03] MEDS: vancomycin 1,000 MG in sodium chloride 0.9% 250 ML 250 MG IV (21:07)
[2022-01-04] VITALS (13 sets, daily range): BP systolic 97–131; BP diastolic 67–83; PULSE 64–93; RESP 20–39; TEMP 37.1–37.7; O2SAT 90–95
[2022-01-04] MEDS: sodium chloride 0.9% 1,000 ML 75 ML IV (03:56)
[2022-01-04] MEDS: pantoprazole 40 mg SDV IVP (05:02)
[2022-01-04 05:08] LABS: Basophils % 0.2 %; Eosinophils % 0.2 %; Hematocrit 40.9 % (37.0-47.0); Hemoglobin 11.2 g/dL (11.5-15.3); Lymphocytes % 7.5 %; Mean Corpuscular HGB Conc 27.4 g/dL (30.0-36.0); Mean Corpuscular Hemoglobin 30.7 pg (28.0-34.0); Monocytes # 0.7 10^3/uL (0.2-0.9); Monocytes % 5.5 %; Neutrophils # 11.41 10^3/uL (1.8-7.7); Neutrophils % 85.6 %; Nucleated Red Blood Cells # 0.1 /100WBC; Nucleated Red Blood Cells % 1.1 %; Platelet Count 236 10^3/cmm (130-400); Red Blood Count 3.65 10^6/uL (4.1-5.3); Red Cell Distribution Width 18.3 % (12.1-15.1); White Blood Count 13.3 10^3/uL (4.0-10.0)
[2022-01-04] MEDS: fentaNYL 50 mcg Patch 1 PATCH TRANSDERMA (05:08)
--- NOTE | 2022-01-04 05:23 | PC.NURSE ---
Patient has been unresponsive throughout shift except for grabbing with hands. Patient moves from sternal rub but does not open eyes. Repositioned frequently, breathing more labored and agonal. WIll continue to monitor and physician notified.
[2022-01-04 05:31] LABS: NT Pro B Type Natriuretic Pept 11840 pg/mL (0-450); Procalcitonin 0.32 ng/mL (0-0.5)
[2022-01-04 05:42] LABS: Alanine Aminotransferase 9 U/L (0-33); Albumin Level 3.2 g/dL (3.5-5.2); Alkaline Phosphatase 48 IU/L (35-105); Blood Urea Nitrogen 39 mg/dL (8-23); C Reactive Protein 15.4 mg/L (0.0-4.9); Calcium 8.9 mg/dL (8.5-10.5); Carbon Dioxide 16 mmol/L (22-29); Chloride 127 mmol/L (98-107); Globulin 2.9 g/dL (1.3-4.6); Glucose 121 mg/dL (65-115); Magnesium 2.3 mg/dL (1.7-2.3); Osmolality Calculated 337 mOsm/kg (285-295); Phosphorus 3.6 mg/dL (2.5-4.5); Sodium 158 mmol/L (136-145); Total Bilirubin 0.5 mg/dL (0.15-1.2); Total Protein 6.1 g/dL (6.6-8.7)
[2022-01-04] MEDS: haloperidol inj 5 mg/mL INJ 1 mL 1 MG IVP (05:42)
[2022-01-04 05:43] LABS: Anion Gap 19.6 (5-19); Aspartate Amino Transferase 23 U/L (0-32); Potassium 4.6 mmol/L (3.5-5.1)
[2022-01-04 05:48] LABS: Mean Corpuscular Volume 112.1 fl (81-99)
[2022-01-04 05:49] LABS: Slide Review Slide Review Perform
[2022-01-04] MEDS: nystatin powder 15 gm Btl 1 APPLIC TOPICAL (08:54)
[2022-01-04] MEDS: dextrose 5% 1,000 ML 75 ML IV (09:00)
--- NOTE | 2022-01-04 11:23 | PC.SOCIAL ---
IMM Update Attempted to update IMM w/ family called multiple times and multiple family members. Either no voicemail box set up or not accepting calls @ this time. Copy of IMM left in room @ patients BS and Copy in chart updated.
[2022-01-04] MEDS: lanolin oint 7 gm 1 APPLIC TOPICAL (11:48)
--- NOTE | 2022-01-04 12:59 | PM.PN ---
Subjective Subjective: Patient was seen this morning, she is alert, but does not respond to her name, does respond to sternal rub, but falls back asleep, afebrile night, nurses tell me that she has not taken any of her oral pills, poor oral intake, serum sodium this morning 158 currently on 6 L Vitals/I&O/Wt Last Vital Signs Temp 99.5 F 01/04/22 11:26 Pulse 66 01/04/22 11:26 Resp 24 H 01/04/22 11:26 BP 131/83 01/04/22 11:26 Pulse Ox 95 01/04/22 11:26 01/03/22 01/04/22 01/04/22 22:59 06:59 14:59 Intake Total 555 / 1055 1028.75 / 2083.75 Output Total 600 / 600 450 / 1050 Balance -45 / 455 578.75 / 1033.75 Weight last 48 hrs Weight 63.645 kg Physical Exam Const: COMMON NORMALS: no acute distress and patient oriented x3 HENMT: COMMON NORMALS: normocephalic HEAD & SCALP: normocephalic Neck/C-Spine: COMMON NORMALS: no JVD Resp: COMMON NORMALS: normal respiratory effort, No retractions, No use of accessory muscles and clear to auscultation bilaterally AUSCULTATION: clear to auscultation bilaterally Cardio: COMMON NORMALS: no JVD, regular rate, regular rhythm, S1 normal heart sound present and S2 normal heart sound present RATE: regular rate RHYTHM: regular rhythm HEART SOUNDS: S1 normal heart sound present and S2 normal heart sound present GI: COMMON NORMALS: Normal to inspection, nondistended, normoactive bowel sounds present, Soft to palpation, non-tender, No hepatosplenomegaly present, no masses and no bruits PALPATION: Yes Soft to palpation and Yes No hepatosplenomegaly present Extremity: COMMON NORMALS: capillary refill normal, no clubbing, cyanosis or edema, no calf tenderness and no pedal edema Neuro: COMMON NORMALS: patient oriented x3 Psych: COMMON NORMALS: mental status grossly normal Urinary Catheter Management: Fuentes: Cath Placed During This Visit: yes Reason for Continuing Indwelling Catheter: Accurate Measurement of Urinary Output in Critically Ill Patients Urinary Catheter Date of Insertion: 12/29/21 Data : 01/04/22 04:56 01/04/22 04:56 A&P Assessment and plan (1) Acute respiratory failure with hypoxia: Recurrent respiratory failure, likely second aspiration event Currently on 6 L, continue BiPAP therapy as needed, 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 She is currently n.p.o. Covid, influenza negative Sputum culture if we are able to obtain Blood cultures showing 2 bottles with staph epidermidis and gram-positive dago. Repeat blood cultures negative Status: Acute (3) Systolic heart failure: Currently appears compensated. Currently n.p.o. Hold diuretics currently. When more p.o. intake is initiated she will need restart of diuretics. Status: Acute Qualifiers: Heart failure chronicity: chronic Qualified Code(s): I50.22 - Chronic systolic (congestive) heart failure (4) NSTEMI (non-ST elevated myocardial infarction): Elevated troponin on admission, with decreasing delta. Considering comorbidities, may not be a candidate for further testing. Medical treatment may be indicated. We will restart aspirin if she is able to swallow, and then reassess later if statin is indicated. Pacemaker interrogation has been ordered. Status: Acute (5) Altered mental status: Consistent with metabolic encephalopathy, hypernatremia Some component related bacteremia, pneumonia, hypoxia, will repeat CT of the head Status: Acute (6) Hyperkalemia: Resolved. Avoid potassium, medications that would retain potassium Status: Acute (7) Gram-positive bacteremia: Gram-positive bacteremia, staph epidermidis, source, likely pneumonia, or UTI However she does have a defibrillator in place, this possibly could be a source Repeat blood cultures so far negative Continue antibiotic therapy Status: Acute (8) Acute encephalopathy: Currently alert, alert to person, not to place, not to time, Etiology is secondary to fever, aspiration, staph epidermidis bacteremia We will repeat CT of the head Status: Acute Plan Chronic pain/DJD. Currently on fentanyl patch. If mental status is still an issue consider discontinuing/reducing History of hyperthyroidism. Currently on methimazole. Free T4 and free TSH recently checked and normal. TSH low. History of atrial fibrillation. Continue Eliquis, diltiazem. Rate is controlled. Also has pacemaker. Order for interrogation has been generated. I suspect it will be similar to the interrogation report December 13. UTI. Urine culture growing yeast. Start on fluconazole 200 mg daily He is having diffuse spasms, seem like seizure-like episodes, will start Keppra Hypernatremia, serum sodium 158, start D5 water, monitor mentation She continues to have poor mentation, poor oral intake, increased oxygen requirements, hypernatremic, discuss with family with goals of care Allow natural Eliquis will suffice for DVT prophylaxis Attestations Medical Necessity Statement*: Patient requires hospitalization for hypernatremia, altered mental status, acute encephalopathy, bacteremia, Coding Level of Care Code Acute Supervisor Kos[employer] Dietary Service for [facility] Fwdilip Diagnoses Acute respiratory failure with hypoxia J96.01 Pneumonia J18.9 Systolic heart failure I50.22 Heart failure chronicity: chronic NSTEMI (non-ST elevated myocardial infarction) I21.4 Altered mental status R41.82 Hyperkalemia E87.5 Gram-positive bacteremia R78.81 Acute encephalopathy G93.40
[2022-01-04 13:11] LABS: Sodium 159 mmol/L (136-145)
[2022-01-04 16:45] LABS: Sodium 159 mmol/L (136-145)
--- NOTE | 2022-01-04 17:38 | PC.NURSE ---
THIS NURSE APPLIED 2 NEW OPTIFOAMS TO PATIENT'S SACRAL WOUNDS. Q2H TURN THROUGHOUT THE DAY. THIS NURSE PROVIDED ORAL CARE AND LANOLIN TO PATIENT'S LIPS. PATIENT HAS NOT OPENED HER EYES ALL DAY. UNABLE TO TAKE IN ANYTHING PO. DR. CORONADO NOTIFIED. PATIENT MADE 220ML OF DARK CAROLE URINE TODAY. PATIENT ON 5L NC AT THIS TIME.
--- NOTE | 2022-01-04 17:46 | PC.NURSE ---
THIS NURSE FLUSHED DRAIN.
--- NOTE | 2022-01-04 19:30 | PC.NURSE ---
Patient is laying in bed. NO s/s of distress or discomfort at this time. Unable to express needs or desires at this time. Patient is able to express yes and no. Pt. is slumped over to right with head laying on pillow. No needs identified at this time.
[2022-01-04 20:07] LABS: Sodium 155 mmol/L (136-145)
[2022-01-04] MEDS: vancomycin 1,000 MG in sodium chloride 0.9% 250 ML 250 MG IV (21:09)
[2022-01-04] MEDS: fluconazole premix 200 MG/100 ML PREMIX 100 MG IV (21:09)
[2022-01-05 01:33] LABS: Sodium 157 mmol/L (136-145)
[2022-01-05 02:00] VITALS: PULSE 58; O2SAT 93
--- NOTE | 2022-01-05 02:03 | PC.NURSE ---
Called Dr. De Oliveira to notify of patient status and that patient is progressively looking worse and beginning to guppy breathe. O2 saturation is stable at 89% on 6L nasal cannula at this time. NO new orders at this time. He states he will see the patient shortly.
--- NOTE | 2022-01-05 02:26 | PC.NURSE ---
Dr. De Oliveira called son Wesley Salgado and stated that we would move to comfort care. Physician to write orders stating this.
[2022-01-05] MEDS: morphine 4 mg/mL SDV 1 mL 0.5 MG IVP ×3 (02:46→05:50)
[2022-01-05 09:34] VITALS: PULSE 60; RESP 28; O2SAT 93
--- NOTE | 2022-01-05 11:37 | PM.PN ---
Subjective Subjective: Patient was seen this morning, family at bedside, patient overnight became more lethargic, increasingly short of breath, less responsive, overnight physician spoke to family and they made her comfort care This morning patient was seen, not alert, does not respond to commands, on 2 L, family at bedside, I discussed with family comfort care, discussed risks and benefits, they voiced understanding, all questions answered agreed to proceed, son and daughter were at bedside, they agreed to proceed Vitals/I&O/Wt Last Vital Signs Temp 99.9 F H 01/04/22 23:51 Pulse 60 01/05/22 09:34 Resp 28 H 01/05/22 09:34 BP 97/67 01/04/22 23:51 Pulse Ox 93 01/05/22 09:34 01/04/22 01/05/22 01/05/22 22:59 06:59 14:59 Intake Total 205 / 515 Output Total 220 / 220 Balance -15 / 295 Physical Exam Const: COMMON NORMALS: no acute distress EXAM LIMITATIONS: altered mental status GENERAL APPEARANCE: lethargic NUTRITIONAL APPEARANCE: cachectic and thin ORIENTATION/CONSCIOUSNESS: Yes patient obtunded and Yes lethargic; not awake, not oriented to person, not oriented to place and not oriented to time Resp: COMMON NORMALS: normal respiratory effort, No retractions and No use of accessory muscles AUSCULTATION: crackles and wheezes Cardio: COMMON NORMALS: regular rate, regular rhythm, S1 normal heart sound present and S2 normal heart sound present RATE: regular rate RHYTHM: regular rhythm HEART SOUNDS: S1 normal heart sound present and S2 normal heart sound present GI: COMMON NORMALS: Normal to inspection, nondistended, normoactive bowel sounds present, Soft to palpation and non-tender PALPATION: Yes Soft to palpation Extremity: COMMON NORMALS: no pedal edema Neuro: SENSORIUM/ORIENTATION: No oriented to person, No oriented to place, No oriented to time and Yes lethargic Urinary Catheter Management: Fuentes: Cath Placed During This Visit: yes Reason for Continuing Indwelling Catheter: Accurate Measurement of Urinary Output in Critically Ill Patients Urinary Catheter Date of Insertion: 12/29/21 Data : 01/04/22 04:56 01/05/22 01:00 Micro: Microbiology 12/31/21 10:50 Blood Culture - Final Blood NO GROWTH AFTER 5 DAYS 12/31/21 10:40 Blood Culture - Final Blood NO GROWTH AFTER 5 DAYS A&P Assessment and plan (1) Acute respiratory failure with hypoxia: Proceeding with comfort care, start comfort care orders Recurrent respiratory failure, likely second aspiration event Currently on 6 L, continue BiPAP therapy as needed, schedule during the dry cans back tender respiratory status closely Status: Acute (2) Pneumonia: Continue vancomycin, Continue Primaxin Most consistent with aspiration Check MRSA PCR Speech therapy consultation has been ordered. She is currently n.p.o. Covid, influenza negative Sputum culture if we are able to obtain Blood cultures showing 2 bottles with staph epidermidis and gram-positive dago. Repeat blood cultures negative Status: Acute (3) Systolic heart failure: Currently appears compensated. Currently n.p.o. Hold diuretics currently. When more p.o. intake is initiated she will need restart of diuretics. Status: Acute Qualifiers: Heart failure chronicity: chronic Qualified Code(s): I50.22 - Chronic systolic (congestive) heart failure (4) NSTEMI (non-ST elevated myocardial infarction): Elevated troponin on admission, with decreasing delta. Considering comorbidities, may not be a candidate for further testing. Medical treatment may be indicated. We will restart aspirin if she is able to swallow, and then reassess later if statin is indicated. Pacemaker interrogation has been ordered. Status: Acute (5) Altered mental status: Consistent with metabolic encephalopathy, hypernatremia Some component related bacteremia, pneumonia, hypoxia, will repeat CT of the head Status: Acute (6) Hyperkalemia: Resolved. Avoid potassium, medications that would retain potassium Status: Acute (7) Gram-positive bacteremia: Gram-positive bacteremia, staph epidermidis, source, likely pneumonia, or UTI However she does have a defibrillator in place, this possibly could be a source Repeat blood cultures so far negative Continue antibiotic therapy Status: Acute (8) Acute encephalopathy: Currently alert, alert to person, not to place, not to time, Etiology is secondary to fever, aspiration, staph epidermidis bacteremia We will repeat CT of the head Status: Acute Plan Chronic pain/DJD. Currently on fentanyl patch. If mental status is still an issue consider discontinuing/reducing History of hyperthyroidism. Currently on methimazole. Free T4 and free TSH recently checked and normal. TSH low. History of atrial fibrillation. Continue Eliquis, diltiazem. Rate is controlled. Also has pacemaker. Order for interrogation has been generated. I suspect it will be similar to the interrogation report December 13. UTI. Urine culture growing yeast. Start on fluconazole 200 mg daily He is having diffuse spasms, seem like seizure-like episodes, will start Keppra Hypernatremia, serum sodium 158, start D5 water, monitor mentation She continues to have poor mentation, poor oral intake, increased oxygen requirements, hypernatremic, discuss with family with goals of care Allow natural Eliquis will suffice for DVT prophylaxis Attestations Medical Necessity Statement*: Patient requires hospitalization for comfort care Coding Level of Care Code Acute Commercial Baker Helper for [facility] Fwd Diagnoses Acute respiratory failure with hypoxia J96.01 Pneumonia J18.9 Systolic heart failure I50.22 Heart failure chronicity: chronic NSTEMI (non-ST elevated myocardial infarction) I21.4 Altered mental status R41.82 Hyperkalemia E87.5 Gram-positive bacteremia R78.81 Acute encephalopathy G93.40
--- NOTE | 2022-01-05 20:09 | PC.NURSE ---
Nurse performed Q2H turning schedule and oral care. Patient was clean and free of incontinence, catheter draining clear yellow urine, visitor at the bedside.
[2022-01-06] MEDS: morphine 10 mg/0.5 mL oral liq UD SUBLINGUAL ×6 (00:21→16:37)
--- NOTE | 2022-01-06 10:21 | PC.NURSE ---
Family refused bathing for today.
--- NOTE | 2022-01-06 10:57 | PC.NURSE ---
Patient given PRN Morphine for agonal breathing and shortness of breath. Patient warm to touch and son present at bedside. No questions at this time. Explained to the son that the patient has a pacemaker that will continue to fire and defib the patients heart. Son stated understanding and does not want to do anything at this time.
--- NOTE | 2022-01-06 13:33 | PC.SOCIAL ---
IMM not updated IMM is not updated, b/c Pt is on Comfort care.
--- NOTE | 2022-01-06 14:45 | PM.PN ---
Subjective Subjective: Patient was seen this morning, son is at bedside, having episodes of agonal breathing Vitals/I&O/Wt Last Vital Signs Temp 99.9 F H 01/04/22 23:51 Pulse 60 01/05/22 09:34 Resp 28 H 01/05/22 09:34 BP 97/67 01/04/22 23:51 Pulse Ox 93 01/05/22 09:34 01/05/22 01/06/22 01/06/22 22:59 06:59 14:59 Intake Total 100 / 100 0 / 100 0 / 0 Output Total 300 / 300 25 / 325 Balance -200 / -200 -25 / -225 0 / 0 Physical Exam Const: OTHER: Does not awaken, does not awaken to name, Chest: OTHER: Tachypnea, diffuse crackles, Cardio: COMMON NORMALS: regular rate, regular rhythm, S1 normal heart sound present and S2 normal heart sound present RATE: regular rate RHYTHM: regular rhythm HEART SOUNDS: S1 normal heart sound present and S2 normal heart sound present GI: COMMON NORMALS: Normal to inspection, nondistended, normoactive bowel sounds present Urinary Catheter Management: Fuentes: Cath Placed During This Visit: yes Reason for Continuing Indwelling Catheter: Accurate Measurement of Urinary Output in Critically Ill Patients Urinary Catheter Date of Insertion: 12/29/21 Data : 01/04/22 04:56 01/05/22 01:00 Micro: Microbiology 12/31/21 10:50 Blood Culture - Final Blood NO GROWTH AFTER 5 DAYS 12/31/21 10:40 Blood Culture - Final Blood NO GROWTH AFTER 5 DAYS A&P Assessment and plan (1) Acute respiratory failure with hypoxia: Proceeding with comfort care, start comfort care orders Recurrent respiratory failure, likely second aspiration event Currently on 6 L, continue BiPAP therapy as needed, 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 She is currently n.p.o. Covid, influenza negative Sputum culture if we are able to obtain Blood cultures showing 2 bottles with staph epidermidis and gram-positive dago. Repeat blood cultures negative Status: Acute (3) Systolic heart failure: Currently appears compensated. Currently n.p.o. Hold diuretics currently. When more p.o. intake is initiated she will need restart of diuretics. Status: Acute Qualifiers: Heart failure chronicity: chronic Qualified Code(s): I50.22 - Chronic systolic (congestive) heart failure (4) NSTEMI (non-ST elevated myocardial infarction): Elevated troponin on admission, with decreasing delta. Considering comorbidities, may not be a candidate for further testing. Medical treatment may be indicated. We will restart aspirin if she is able to swallow, and then reassess later if statin is indicated. Pacemaker interrogation has been ordered. Status: Acute (5) Altered mental status: Consistent with metabolic encephalopathy, hypernatremia Some component related bacteremia, pneumonia, hypoxia, will repeat CT of the head Status: Acute (6) Hyperkalemia: Resolved. Avoid potassium, medications that would retain potassium Status: Acute (7) Gram-positive bacteremia: Gram-positive bacteremia, staph epidermidis, source, likely pneumonia, or UTI However she does have a defibrillator in place, this possibly could be a source Repeat blood cultures so far negative Continue antibiotic therapy Status: Acute (8) Acute encephalopathy: Currently alert, alert to person, not to place, not to time, Etiology is secondary to fever, aspiration, staph epidermidis bacteremia We will repeat CT of the head Status: Acute Plan Chronic pain/DJD. Currently on fentanyl patch. If mental status is still an issue consider discontinuing/reducing History of hyperthyroidism. Currently on methimazole. Free T4 and free TSH recently checked and normal. TSH low. History of atrial fibrillation. Continue Eliquis, diltiazem. Rate is controlled. Also has pacemaker. Order for interrogation has been generated. I suspect it will be similar to the interrogation report December 13. UTI. Urine culture growing yeast. Start on fluconazole 200 mg daily He is having diffuse spasms, seem like seizure-like episodes, will start Keppra Hypernatremia, serum sodium 158, start D5 water, monitor mentation She continues to have poor mentation, poor oral intake, increased oxygen requirements, hypernatremic, discuss with family with goals of care Allow natural Eliquis will suffice for DVT prophylaxis Attestations Medical Necessity Statement*: Requires hospitalization for comfort care Coding Level of Care Code Acute Fat Pressroom Worker for [facility] Diagnoses Acute respiratory failure with hypoxia J96.01 Pneumonia J18.9 Systolic heart failure I50.22 Heart failure chronicity: chronic NSTEMI (non-ST elevated myocardial infarction) I21.4 Altered mental status R41.82 Hyperkalemia E87.5 Gram-positive bacteremia R78.81 Acute encephalopathy G93.40
[2022-01-06 18:17] VITALS: PULSE 107
--- NOTE | 2022-01-06 19:13 | PC.NURSE ---
Patient's daughter came out and got this nurse and was crying. Immediately went to the patient's room and listened to the patient. Verified with a second nurse the patient was not breathing and no heart beat was found. Pronounced at 1854. Asked the daughter if there was anyone I could call for her, she stated no. She would do this. [facility] [place] was picked as the home of choice. supervisor print line was notified.
--- NOTE | 2022-01-06 20:00 | PC.NURSE ---
Fentanyl patch removed from Right posterior shoulder & placed in sharp's box, witnessed by Bina Schulz LPN. Fuentes catheter removed & post mortem care provided.
--- NOTE | 2022-01-06 22:54 | PC.NURSE ---
[facility] here to transfer body. All personal belongings sent out with patient.
--- NOTE | 2022-01-09 10:54 | PM.DDS ---
Discharge Providers DDS Date of Admission: 12/30/21 00:08 Date Summary Completed: 01/09/22 Attending Provider at Admission: Marcos Antony Attending Provider at Discharge: Dutch Gaspar MD Primary Care Provider: Crescencio Phillips MD DS Diagnoses Hospital Diagnoses (1) Acute respiratory failure with hypoxia: (2) Pneumonia: (3) Systolic heart failure: Qualifiers: Heart failure chronicity: chronic Qualified Code(s): I50.22 - Chronic systolic (congestive) heart failure (4) NSTEMI (non-ST elevated myocardial infarction): (5) Altered mental status: (6) Hyperkalemia: (7) Gram-positive bacteremia: (8) Acute encephalopathy: Reason for Visit Reason for Visit SEVERE RESPIRATORY DISTRESS Summary Summary Summary: This is a 81-year-old female resident at [facility], past medical history of CAD, atrial fibrillation, systolic CHF ejection fraction 30%, status post ICD, COPD, hypertension, hyperlipidemia, hypothyroidism, peripheral vascular disease. Recently discharged from [facility] for altered mental status, UTI, fall, with dysphagia, pneumonia. Who presents [facility] due to altered mental status, dyspnea, low O2 sats. Patient was admitted to [facility] ICU, for acute hypoxic respiratory failure, requiring BiPAP therapy, ICU admission, secondary to multifocal pneumonia, likely aspiration pneumonia, requiring broad-spectrum antibiotic therapy, underlying systolic CHF exacerbation, non-ST elevation MA secondary to acute respiratory failure, KLAUDIA on CKD secondary to respiratory failure. In addition she had acute encephalopathy secondary respiratory failure, dysphagia, pneumonia. Patient's respiratory status initially to some degree, she was moved to the ICU, however her mentation worsened likely secondary to recurrent aspiration and sepsis and bacteremia developed worsening oral intake, intermittently requiring BiPAP and increased oxygen requirements. Family did not want to have aggressive interventions, she was DNR/DNI. She also had a Dory albicans UTI. For her fluid overload and pulmonary edema and systolic CHF exacerbation, was difficult due to developing hypernatremia secondary to dehydration and poor oral intake. She also had gram-positive bacteremia, staph epidermidis, likely sources pneumonia however her pacemaker leads could be a source of infection, however family did not want to have aggressive intervention. Patient mentation continued to decline, not alert, not to alert to person, not to place, not to time, would not follow commands, would not awaken, nor oral intake. Given her worsening mental status, poor oral intake, worsening aspiration pneumonia, increasing oxygen requirements, worsening respiratory status, patient's family pursued comfort care. Patient was made comfort care Time of 01/06/2022 at 1854 Additional Data Confirmation of as documented by pronouncing clinician: no pulse, no respirations and no heart sounds Family: at bedside Additional persons at bedside: nursing staff Attending/PCP notified?: I am attending Was code activated?: No Advance directives?: No Discharge Plan Discharge Patient Disposition: Condition: Stable Prescriptions: No Action fentanyl 50 mcg/hr patch 72 hour 1 patch transdermal Q72H 0RF lorazepam 0.5 mg tablet 0.5 mg PO BID 0RF Eliquis 2.5 mg tablet 2.5 mg PO BID 0RF nitroglycerin [Nitrostat] 0.4 mg tablet, sublingual 0.4 mg SUBLINGUAL Q5M PRN (Reason: Chest Pain) 0RF aspirin [Adult Low Dose Aspirin] 81 mg tablet,delayed release (DR/EC) 81 mg PO DAILY 0RF albuterol sulfate 2.5 mg /3 mL (0.083 %) solution for nebulization 2.5 mg INHALATION Q4H PRN (Reason: Shortness Of Breath) 0RF acetaminophen 325 mg capsule 325 mg PO QID PRN (Reason: Pain) 0RF lactulose 10 gram/15 mL solution 10 gm PO BID 0RF bisacodyl 5 mg tablet 10 mg PO DAILY PRN (Reason: Constipation) 0RF methimazole 5 mg tablet 7.5 mg PO DAILY 0RF sennosides-docusate sodium [Senna Plus] 8.6-50 mg tablet 1 tab-cap PO DAILY 0RF ondansetron HCl 4 mg tablet 4 mg PO Q6H PRN (Reason: Nausea) 0RF clobetasol 0.05 % Ointment 1 applic TOPICAL DAILY 0RF Biofreeze (menthol) 4 % Gel 1 applic TOPICAL DAILY 0RF duloxetine 60 mg Capsule, Delayed Rel Sprinkle 60 mg PO DAILY 0RF hydrocodone-acetaminophen 7.5-325 mg Tablet 1 tab PO Q8H PRN (Reason: Pain) 0RF carboxymethylcellulose sodium [Refresh Tears] 0.5 % Drops 2 drp OPHTHALMIC (EYE) Q4H PRN (Reason: Eye Irritation) 0RF Hemorrhoidal H Suppository 1 supp TX BID PRN (Reason: Hemorrhoids) 0RF nystatin [Nyamyc] 100,000 unit/gram powder 100,000 unit TOPICAL DAILY 0RF diltiazem HCl [Cardizem] 120 mg tablet 120 mg PO BID 30 Days Qty: 60 0RF furosemide 40 mg tablet 40 mg PO BID PRN (Reason: Edema) Qty: 0 0RF Levaquin 750 mg Tablet 750 mg PO DAILY 0RF Referrals: [facility] [Outside] Crescencio Phillips MD [Primary Care Provider] - Patient Instructions: Opioid Safety Probable Cause of Probable cause of : Cardiac arrest DS Attestations Time Spent in /Discharge Care*: less than 30 min Quality - AMI: AMI present?: No Quality - Stroke: CVA present?: No Symptom Onset Unknown: No Quality - VTE: VTE present?: No Deep Vein Thrombosis/Pulmonary Embolism Present on Admission: No Coding Level of Care Code Acute [employer] for [facility] Diagnoses Acute respiratory failure with hypoxia J96.01 Pneumonia J18.9 Systolic heart failure I50.22 Heart failure chronicity: chronic NSTEMI (non-ST elevated myocardial infarction) I21.4 Altered mental status R41.82 Hyperkalemia E87.5 Gram-positive bacteremia R78.81 Acute encephalopathy G93.40
== END 2022-01-06 22:54 | disposition expired | DRG 871 ==
LOC: ER 22:16 → ICU 12-30 00:08 → MEDSURG 12-31 15:08
PROVIDERS: Admitting Provider Internal Medicine; Emergency Provider Emergency Medicine; PCP Internal Medicine; Visit Provider Family Medicine
DX: A41.1 Sepsis due to other specified staphylococcus (principal); J69.0 Pneumonitis due to inhalation of food and vomit; J96.01 Acute respiratory failure with hypoxia; I50.23 Acute on chronic systolic (congestive) heart failure; I21.A1 Myocardial infarction type 2; N17.9 Acute kidney failure, unspecified; N39.0 Urinary tract infection, site not specified; G93.40 Encephalopathy, unspecified; E87.0 Hyperosmolality and hypernatremia; I13.0 Hypertensive heart and chronic kidney disease with heart failure and stage 1 through stage 4 chronic kidney disease, or unspecified chronic kidney disease; R65.20 Severe sepsis without septic shock; N18.9 Chronic kidney disease, unspecified; R13.10 Dysphagia, unspecified; B96.89 Other specified bacterial agents as the cause of diseases classified elsewhere; E87.5 Hyperkalemia; E03.9 Hypothyroidism, unspecified; I73.9 Peripheral vascular disease, unspecified; I48.91 Unspecified atrial fibrillation; Z66 Do not resuscitate; Z95.0 Presence of cardiac pacemaker; Z79.82 Long term (current) use of aspirin; E78.5 Hyperlipidemia, unspecified; M19.90 Unspecified osteoarthritis, unspecified site; G89.29 Other chronic pain; Z99.81 Dependence on supplemental oxygen; Z51.5 Encounter for palliative care
CPT/HCPCS: 36415; 36416; 36600; 51702; 70450; 71045; 71275; 74176; 76770; 80048; 80051; 80053; 80202; 81001; 82330; 82805; 82962; 83605; 83735; 83880; 84100; 84145; 84295; 84443; 84484; 85025; 86140; 86403; 87040; 87077; 87086; 87106; 87150; 87186; 87205; 87449; 87635; 87641; 92507; 92523; 92526; 92610; 93005; 94660; 94664; 96365; 96367; 96375; 99291; C9113; J0692; J0743; J1450; J1630; J1940; J1953; J2060; J2270; J3370; J7030; J7040; J7050; Q0162; Q9967